=== PATIENT | male | born 1955 | race Caucasian/White ===

== ENCOUNTER 2020-04-16 10:06 | Outpatient (CLI) | payer MEDICARE, SELFPAY ==
[2020-04-16 10:58] LABS: SARS-CoV-2 Ag Negative (Negative)
== END 2020-04-16 10:07 | disposition home or self-care (01) ==
LOC: CHSLAB 10:14
PROVIDERS: PCP Internal Medicine; Visit Provider Internal Medicine
DX: Z20.828 Contact with and (suspected) exposure to other viral communicable diseases (principal)
CPT/HCPCS: 87426

== ENCOUNTER 2021-08-31 08:49 | Outpatient (CLI) | payer MEDICARE, SELFPAY ==
--- NOTE | ~2021-08-31 | CT_ITS ---
EXAMINATION: CT abdomen pelvis w con DATE: 08/31/2021 09:40 INDICATION: Right lower quadrant abdominal pain, worse with movement TECHNIQUE: Computed tomography (CT) of the abdomen and pelvis was performed with 100 CC Omnipaque 350 intravenous contrast. Automated exposure control and iterative reconstruction technique were employe d. Exam dose: 1069.27 mGy-cm total exam DLP. COMPARISON: None. FINDINGS: Right lower lobe basilar atelectasis. The lung bases are otherwise clear. Normal heart size. No pericardial or pleural effusion. Small sliding hiatal hernia. Hepatic and splenic calcified granulomas. Hepatic steatosis. No hepatic, splenic, pancreatic or adren al space-occupying mass lesion. No bile duct or pancreatic duct dilatation. The gallbladder appears unremarkable. No pericholecystic fluid or fat stranding. 2.3 cm right renal cyst. No other renal mass lesion. No urinary tract calculus or hydroureteronephros is. There is streak artifact in the pelvic area due to left hip prosthesis. The urinary bladder appears e ssentially unremarkable. Prostate enlargement. No bowel obstruction, bowel wall thickening, pneumatosis or intraperitoneal free air. No evidence of appendicitis. There is atherosclerotic calcification of the abdominal aorta and at the origins of celiac, superior mesenteric and renal and inferior mesenteric arteries as well as iliac a nd femoral artery calcifications. No abdominal aortic aneurysm. No intraperitoneal or retroperitoneal or pelvic mass lesion or adenopathy or ascites. Right hip osteoid arthritis. Severe degenerative disc disease throughout the lumbar and lumbosacral a aydee. Degenerative change lower thoracic spine. No suspicious osteolytic or osteoblastic lesions are n oted. IMPRESSION: No evidence of appendicitis Small sliding hiatal hernia 2.3 cm right renal cyst Left hip prosthesis Reviewed, dictated and finalized at [facility] Reviewed, dictated and finalized at [facility].
[2021-08-31 09:16] LABS: Estimated Glomerular Filt Rate > 60
== END 2021-08-31 08:50 | disposition home or self-care (01) ==
LOC: CHSIMG 08:52
PROVIDERS: PCP Internal Medicine; Visit Provider Internal Medicine
DX: R10.31 Right lower quadrant pain (principal)
CPT/HCPCS: 74177; Q9967

== ENCOUNTER 2022-08-15 14:39 | Outpatient (NON) | payer MEDICARE, SELFPAY ==
[2022-08-15 14:50] LABS: Appearance Urine Clear (Clear); Basophils Absolute Auto 0.09 K/mm3 (0.00-0.10); Basophils Percent Auto 0.7 % (0.0-1.0); Bilirubin Urine Negative (Negative); Blood Urine Negative (Negative); Color Urine Yellow (Yellow); Eosinophils Absolute Auto 0.42 K/mm3 (0.02-0.50); Eosinophils Percent Auto 3.4 % (1.0-6.0); Glucose Urine UA 3+ (Negative); Hematocrit 42.7 % (37.0-46.0); Hemoglobin 14.1 g/dL (12.4-15.3); Immature Granulocyte Absolute 0.34 K/mm3 (0.00-0.00); Immature Granulocyte Percent A 2.8 % (0.0-0.0); Ketones Urine Negative (Negative); Leukocyte Esterase Ur Negative LEU/UL (Negative); Lymphocytes Absolute Auto 2.24 K/mm3 (1.10-4.50); Lymphocytes Percent Auto 18.4 % (18.0-42.0); Mean Corpuscular Hemoglobin 29.9 pg (27.0-31.0); Mean Corpuscular Volume 90.7 fL (78.0-102.0); Mean Platelet Volume 8.5 fl (8.7-11.0); Monocytes Absolute Auto 1.17 K/mm3 (0.10-0.90); Monocytes Percent Auto 9.6 % (2.0-11.0); Neutrophils Absolute Auto 7.9 K/mm3 (1.7-7.2); Neutrophils Percent Auto 65.1 % (50.0-70.0); Nitrate Urine Negative (Negative); Platelet Count Result 275 K/mm3 (150-420); Protein Urine Negative (Negative); Red Blood Count 4.71 M/mm3 (4.70-6.10); Specific Grav Ur 1.015 (1.010-1.020); Urobilinogen Urine 0.2 mg/dL (0.2-1.0); White Blood Count 12.2 K/mm3 (4.8-10.8)
[2022-08-15 14:57] LABS: Add Urine Microscopic? YES; Bacteria Urine Trace /hpf; RBC Urine None seen /hpf (0-2); Squamous Epithelial Cell Urine Rare /hpf (Few); WBC Urine None seen /hpf (0-3)
[2022-08-15 14:59] LABS: Alanine Aminotransferase 59 U/L (16-63); Albumin Level 3.2 g/dL (3.4-5.0); Alkaline Phosphatase 82 U/L (46-116); Anion Gap 11 mmol/L (8-16); Aspartate Amino Transferase 36 U/L (15-37); Bilirubin,Total 0.6 mg/dL (0.00-1.00); Blood Urea Nitrogen 24 mg/dL (7-18); Calcium 8.5 mg/dL (8.5-10.1); Carbon Dioxide 28 mmol/L (21-32); Chloride 99 mmol/L (98-108); Estimated Glomerular Filt Rate > 60; Glucose 104 mg/dL (70-99); Osmolality Calculated 290 mOsm/kg (285-295); Potassium 4.3 mmol/L (3.5-5.1); Sodium 138 mmol/L (136-145); Total Protein 6.8 g/dL (6.4-8.2)
[2022-08-15 16:50] LABS: Prostate Specific Antigen 6.4 ng/mL (< OR = 4.0)
== END 2022-08-15 14:40 | disposition home or self-care (01) ==
LOC: CHSLAB 14:42
PROVIDERS: Visit Provider Internal Medicine
DX: R39.15 Urgency of urination (principal)
CPT/HCPCS: 36415; 80053; 81001; 84153; 85025; 87086

== ENCOUNTER 2022-09-01 12:27 | Outpatient (NON) | payer MEDICARE, SELFPAY ==
[2022-09-01 12:40] LABS: Appearance Urine Clear (Clear); Bilirubin Urine Negative (Negative); Blood Urine Trace-Intact (Negative); Color Urine Light Yellow (Yellow); Glucose Urine UA 3+ (Negative); Ketones Urine Negative (Negative); Leukocyte Esterase Ur Negative (Negative); Nitrate Urine Negative (Negative); Protein Urine Negative (Negative); Urobilinogen Urine 0.2 mg/dL (0.2-1.0)
[2022-09-01 12:47] LABS: Add Urine Microscopic? YES; Bacteria Urine None seen /hpf; RBC Urine 0-2 /hpf (0-2); Squamous Epithelial Cell Urine Rare /hpf (Few); WBC Urine 0-3 /hpf (0-3)
[2022-09-01 13:06] LABS: Prostate Specific Antigen 4.8 ng/mL (< OR = 4.0)
== END 2022-09-01 12:28 | disposition home or self-care (01) ==
LOC: CHSLAB 12:30
PROVIDERS: Visit Provider Internal Medicine
DX: R30.0 Dysuria (principal); R97.20 Elevated prostate specific antigen [PSA]; R82.90 Unspecified abnormal findings in urine
CPT/HCPCS: 36415; 81001; 84153; 87086

== ENCOUNTER 2022-10-26 09:50 | Outpatient (CLI) | payer MEDICARE, SELFPAY ==
--- NOTE | ~2022-10-26 | MR_ITS ---
MRI of the lumbar spine Clinical History: Spinal stenosis Technique: Axial T2-weighted images, and sagittal T1-weighted, T2-weighted, and T2 fat-sat images wer e acquired. Findings: No fracture or subluxation evident in the lumbar spine. There is 20 degree dextroscoliosis of the lumbar spine. There is advanced degenerative disc narrowing at L2-L3, L4-L5, L5-S1, with moder ate degenerative change at L3-L4 and L1-L2. No suspicious bone marrow signal reality seen. At L1-L2, there is minimal disc bulge with moderate facet arthropathy. No central canal stenosis. The re is probable mild left neural foraminal narrowing. Right neural foramen preserved. At L2-L3, there is disc bulge and moderate to severe facet arthropathy. There is left lateral recess stenosis and severe left neural foraminal narrowing. Right neural foramen preserved. At L3-L4, there is disc bulge with advanced facet arthropathy. There is severe left neural foraminal narrowing and moderate to severe right neural foraminal narrowing. At L4-L5, there is disc bulge/protrusion, especially the right paracentral to right foraminal region, with severe facet arthropathy. There is severe right lateral recess stenosis. There is severe right neural foraminal narrowing, and moderate to severe left neural foraminal narrowing. At L5-S1, there is mild disc bulge with moderate to advanced facet arthropathy. No central canal sten osis. There is moderate to severe right neural foraminal narrowing. Left neural foramen preserved. Paravertebral soft tissues are unremarkable. Impression: Advanced degenerative spondylosis, as detailed above, probably worst at L4-L5. Reviewed, dictated and finalized at [facility]. Impression: Advanced degenerative spondylosis, as detailed above, probably worst at L4-L5.
== END 2022-10-26 09:51 | disposition home or self-care (01) ==
PROVIDERS: PCP Internal Medicine
DX: M48.061 Spinal stenosis, lumbar region without neurogenic claudication (principal); M51.26 Other intervertebral disc displacement, lumbar region; M54.16 Radiculopathy, lumbar region; M43.06 Spondylolysis, lumbar region
CPT/HCPCS: 72148

== ENCOUNTER 2024-12-11 12:17 | Outpatient (CLI) | payer MEDICARE, SELFPAY ==
--- OUTSIDE RECORDS SUMMARY | 2024-12-11 12:22 | XMS_ITS | Clinical Summary ---
Author Organization [facility] Address [address] [place] [address] Care Team Providers Care Machine Pack Assembler Name Role Phone Flavio Little MD Primary Care Provider [phone] Arma Abdul MD Unavailable Lianne Oliveira MD Unavailable [phone] Dimas Valle MD Unavailable [phone] Tucker Cowan MD Unavailable [phone] Source Comments [facility],non-owned Affiliates and Associated Physician Practices is amultiple site organization consisting of ambulatory clinics and hospital sitesin [place], [place], [place] and [place]. This disclosure is being madepursuant to the Care Everywhere program and may not contain all information available regarding this patient. Last updated 18.[facility] Allergies No known active allergies Medications * Be aware that medications may not be up to date on this document. Alwaysverify current medications with the patient. celecoxib (CELEBREX) 100 MG capsule Take 1 (one) capsule by mouth 2 times daily 0 07/03/19 18 Active escitalopram (LEXAPRO) 20 MG tablet Take 0.5 (one-half) tablet by mouth once daily Active losartan-hydroCHLO ROthiazide (HYZAAR) 100-25 MG tablet Take 1 (one) tablet by mouth once daily Active metFORMIN ER 24hr (GLUCOPHAGE XR) 500 MG tablet Take 2 (two) tablets by mouth 2 times daily Active cetirizine (ZyrTEC) 10 MG tablet Take by mouth once daily Active montelukast (Singulair) 10 MG tablet Take 1 (one) tablet by mouth once daily Active Farxiga 10 MG tablet Take 0.5 (one-half) tablet by mouth once daily 05/19/19 Active dulaglutide (Trulicity) 4.5 MG/0.5ML injection Inject subcutaneously every 7 days Sundays06/28/19 Active Levemir FlexTouch pen Inject 65 (sixty five) Units subcutaneously at bedtime 05/19/19 Active NovoLOG FLEXPEN pen Inject subcutaneously 3 times daily with meals SLIDING SCALE 10 units per meal per 150 pts plus 1 unit for each 25 points 06/10/19 Active rosuvastatin (Crestor) 5 MG tablet Take 1 (one) tablet by mouth every Sunday, Sunday & Sunday05/17/19 Active rOPINIRole (Requip) 1 MG tablet Take 1 (one) tablet by mouth at bedtime 05/19/19 Active Cholecalciferol (Vitamin D) 125 MCG (5000 UT) CAPS Take by mouth once daily Active Probiotic Product (PROBIOTIC ADVANCED PO) Active melatonin 10 MG capsule Take 1 (one) capsule by mouth at bedtime Active Multiple Vitamin (MULTIVITAMIN ADULT PO) Active ascorbic acid (Vitamin C) 125 MG TABS half tablet Take by mouth as needed Active traMADol (Ultram) 50 MG tabletIndications: Primary osteoarthritis of right hip Take 1 (one) tablet to 2 (two) tablets by mouth every 6 hours as needed for Pain 20 tablet 08/31/19 Active Additional Information Patient not taking.Reported on 09/19/2022 gabapentin (Neurontin) 300 MG capsule Take 1 (one) capsule by mouth 3 times daily 90 capsule 2 10/24/19 Active Additional Information Patient taking differently:300 mg OralAT BEDTIME, Reported on 01/16/2023 acetaminophen-code ine (Tylenol #3) 300-30 MG tablet Act stephanie omeprazole (PriLOSEC) 20 MG capsule 11/10/19 Active HYDROcodone-acetam inophen ([place]) 10-325 MG tablet TAKE 1/2 TO 1 TABLET BY MOUTH EVERY 6 HOURS NEEDED FOR PAIN Active Ozempic, 2 MG/DOSE, 8 MG/3ML pen 03/25/20 23 Active tirzepatide (Mounjaro) 7.5 MG/0.5ML injection Inject 0.5ml under the skin every 7 days 06/07/19 24 Active Active Problems Problem Noted Date Diagnosed Date Status post right hip replacement 08/30/2022 Primary osteoarthritis of right hip 08/09/2022 Trochanteric bursitis of right hip 07/17/2017 Primary osteoarthritis of left knee 07/17/2017 Diabetes mellitus 07/17/2017 Obstructive sleep apnea syndrome 05/07/2002 Overview (07/17/2017): Overview: OBSTRUCTIVE SLEEP APNEA Encounters Date Type Department Care Team Description 11/03/2024 Telephone [facility] Pain [facility] [id number] [place] [address] [place] [address] Julieth Bautista Scheduling 10/23/2024 10:45 AM CDT Office Visit [facility] [id number] [facility] [address] [place] [address] Tucker Cowan MD Myofascial pain (Primary Dx); Lumbar facet arthropathy; Gait difficulty; Lumbar facet joint pain from Last 3 Months Social History Tobacco Use Types Packs/Day Years Used Date Smoking Tobacco: Never Smokeless Tobacco: Never Tobacco Cessation:Counseling Given: Not Answered Alcohol Use Standard Drinks/Week Comments Yes 0 (1 standard drink = 0.6 oz pur e alcohol) rarely PHQ-2 Answer Date Recorded Patient Health Questionnaire-2 Score 3 10/22/2024 Sex and Gender Information Value Date Recorded Sex Assigned at Male 07/12/2022 5:24 PM BIOINFORMATICS ASSISTANT Legal Sex Male 1:29 PM BIOINFORMATICS ASSISTANT Gender Identity Male 07/12/2022 5:24 PM BIOINFORMATICS ASSISTANT Sexual Orientation Straight 07/12/2022 5: 24 PM BIOINFORMATICS ASSISTANT Last Filed Vital Signs Vital Sign Reading Time Taken Comments Blood Pressure 151/80 10/31/2022 12:14 PM CDT Pulse 75 10/31/2022 12:14 PM CDT Temperature 36.8 C (98.2 F) 08/10/2022 7:59 AM CDT Respiratory Rate 18 10/31/2022 12:14 PM CDT Oxygen Saturation 94% 10/31/2022 12:14 PM CDT Inhaled Oxygen Concentration - - Weight 101.6 kg (224 lb) 01/30/2024 9:20 AM CDT Height 175.3 cm (5' 9) 01/30/2024 9:20 AM CDT Body Mass Index 33.08 01/30/2024 9:20 AM CDT Plan of Treatment Upcoming Encounters Date Type Department Care Team (Late st Contact Info) Description 01/22/2025 10:45 AM CDT Office Visit [facility] [id number] [facility] [address] [place] [address]. [place] [id number] [place] [address] [facility] [address] [place], [place] [id number] Health Maintenance Due Date Last Done Comments COLOGUARD (AGES 45-75) - COLON CA SCREENING 1953 CT COLONOGRAPHY - COLON CA SCREENING 1953 FIT - COLON CA SCREENING 1953 FLEX SIG - COLON CA SCREENING 1955 MEDICARE AWV 12 MONTHS 1953 HEPATITIS C SCREENING 01/17/1971 DTAP/TDAP/TD VACCINES (1 - Tdap) 01/22/1972 PNEUMOCOCCAL VACCINE 50+ (1 of 2 - PCV) 01/22/1972 ZOSTER VACCINE (1 of 2) 2003 Respiratory Syncytial Virus (RSV) Vaccine Pt: or over 60 yrs (1 - Risk 60-74 years 1-dose series) 2013 DIABETES RETINOPATHY SCREENING 06/26/2022 DIABETES-FOOT EXAM WITH MONOFILAMENT 06/26/2022 COVID-19 VACCINE ( season) 2024 07/02/2020, 06/11/2020 DIABETES - URINE PROTEIN SCREENING 05/07/2024 DIABETES-HGB A1C 11/24/2024 05/27/2024, , 01/30/2023, Additional history exists INFLUENZA VACCINE (#1) 2025 02/15/2017, 2014 DIABETES-SERUM CREATININE 05/27/20252024, 01/30/2023, 07/12/2022, Additional history exists COLON MONITORING 06/26/2028 06/26/2018 COLONOSCOPY - COLON CA SCREENING 06/26/2028 06/26/2018 Colorectal Cancer Screening 06/26/2028 DEPRESSION SCREENING Completed 07/24/2024, 01/30/20 24 HEPATITIS B VACCINE Aged Out No longe r eligible based on patient's age to complete this topic HIB VACCINE Aged Out No longer eligi ble based on patient's age to complete this topic HPV VACCINE Aged Out No longer eligi ble based on patient's age to complete this topic MENINGOCOCCAL (Group B) VACCINE SHARED DECISION-MAKING Aged Out No longer eligible based on patient's age to complete this topic MENINGOCOCCAL GROUPS A/C/Y/W VACCINE Aged Out No longer eligible based on patient's age to complete this topic Medical Devices Implanted Type Area Sergeant Of Officers Device Identifier Shelf Expiration Date Model / Serial / Lot Shell Actb 58mm Hip Lmt Hl Clr Cd Pps G7 - [id number] Implanted:Qty: 1 on 08/09/2022 by German Mendes MD at [facility] Right: Hip [employer] 05/11/2032 [id number] / [id number] / [id number] Linr Actb G7 G 40mm Vivacit-E Hip Lum - [id number] Implanted:Qty: 1 on 08/09/2022 by German Mendes MD at [facility] Right: Hip [employer] 06/09/2025 [id number] / [id number] / [id number] Screw 6.5mm 30mm Slf-Tap Actb Cody Trlg - [id number] Implanted:Qty: 1 on 08/09/2022 by German Mendes MD at [facility] Right: Hip [employer] 05/16/2031 [id number] / [id number] / [id number] Stem Fem 13mm 145mm Hip 135d Std Ofst Implanted:Qty: 1 on 08/09/2022 by German Mendes MD at [facility] Right: Hip [employer] 04/06/2032 [id number] / / [id number] Slv Centering G7 -6mm Ofst Tpr Hip Ti Ty Implanted:Qty: 1 on 08/09/2022 by German Mendes MD at [facility] Right: Hip [employer] 03/03/2032 [id number] / / [id number] Head Fem 40mm Hip Blx D Biolox Optn G7 Implanted:Qty: 1 on 08/09/2022 by German Mendes MD at [facility] Right: Hip [employer] 03/11/2028 [id number] / / [id number] Explanted Type Area Sergeant Of [employer] Device Identifier Shelf Expiration Date Model / Serial / Lot Pin Fx 22.9cm 4mm Stnm Thrd Ss 1 End Explanted:Qty: 1 on 08/09/2022 at [facility] Right: Hip [employer] [id number] / / Procedures Procedure Name Priority Date/Time Associated Diagnosis Comments COMPREHENSIVE METABOLIC PANEL STAT 07/12/2022 10:33 AM BIOINFORMATICS ASSISTANT Pre-op evaluation HEMOGLOBIN A1C STAT 07/12/2022 10:33 AM BIOINFORMATICS ASSISTANT Pre-op evaluation from Last 3 Months or Most Recently Relevant to Health Maintenance Results * (ABNORMAL) HEMOGLOBIN A1C (07/12/2022 10:33 AM BIOINFORMATICS ASSISTANT) Hemoglobin A1c 7.2(H) <5.7 % 07/12/2022 10:54 AM BIOINFORMATICS ASSISTANT [facility] Estimated Average Glucose 160 mg/dL 07/12/2022 10:54 AM BIOINFORMATICS ASSISTANT [facility] Blood BLOOD SPECIMEN / Unknown Venipuncture / Unknown 07/12/2022 10:33 AM BIOINFORMATICS ASSISTANT 07/12/2022 10:41 AM BIOINFORMATICS ASSISTANT Narrative [facility] - 07/12/2022 10:54 AM BIOINFORMATICS ASSISTANT HbA1c Interpretation: Normal: < 5.7% Pre-diabetes: 5.7-6.4% Diabetes: Equal to or greater than 6.5% Test results diagnostic of diabetes should be repeated for confirmation. Treatment target values recommended by ADA and other clinical organizations should be used to evaluate metabolic control in patients. This test should not replace glucose testing for patients with Type 1 diabetes, pediatric patients, or women. Falsely low HbA1c results may be observed in patients with clinical conditions that shorten erythrocyte life span or decrease mean erythrocyte age such as the presence of unstable hemoglobin variants, elevated hemoglobin F level or other causes of hemolytic anemia. HbA1c may not accurately reflect glycemic control when clinical conditions that affect erythrocyte survival are present. Severe Iron deficiency anemia may yield falsely high results. Hemoglobin A1c assay should not be used to diagnose or monitor diabetes in patients with malignancy, recent blood transfusion, chronic kidney or liver disease. This method may yield falsely low results when hemoglobin (HbF) exceeds 5% in the specimen. The [employer] assay for the measurement of HbA1c is a National Glycohemoglobin Standardization Program (NGSP) certified method. Sigrid Glover LONG [employer] [facility] - CHEMISTRY ORDE ARMANI Final Result [facility] [address] [place] [address] * (ABNORMAL) COMPREHENSIVE METABOLIC PANEL (07/12/2022 10:33 AM BIOINFORMATICS ASSISTANT) Glucose 145(H) 70 - 105 mg/dL 07/12/2022 11:00 AM [facility] Sodium 137 136 - 145 mmol/L 07/12/2022 11:00 AM [facility] Potassium 4.3 3.5 - 5.1 mmol/L 07/12/2022 11:00 AM [facility] Chloride 104 98 - 107 mmol/L 07/12/2022 11:00 AM [facility] CO2 23 23 - 31 mmol/L 07/12/2022 11:00 AM [facility] Calcium 9.2 8.4 - 10.4 mg/dL 07/12/2022 11:00 AM [facility] Anion Gap 10 8 - 18 mmol/L 07/12/2022 11:00 AM [facility] BUN 21 8.4 - 25.7 mg/dL 07/12/2022 11:00 AM [facility] Creatinine 1.06 0.72 - 1.25 mg/dL 07/12/2022 11:00 AM [facility] Alkaline Phosphatase 84 40 - 150 U/L 07/12/2022 11:00 AM [facility] ALT 28 0 - 61 U/L 07/12/2022 11:00 AM [facility] AST 24 5 - 34 U/L 07/12/2022 11:00 AM BIOINFORMATICS ASSISTANT [facility] Protein Total 7.3 6.4 - 8.3 gm/dL 07/12/2022 11:00 AM BIOINFORMATICS ASSISTANT [facility] Albumin 4.2 3.2 - 4.6 gm/dL 07/12/2022 11:00 AM BIOINFORMATICS ASSISTANT [facility] Bilirubin Total 0.3 0.2 - 1.2 mg/dL 07/12/2022 11:00 AM BIOINFORMATICS ASSISTANT [facility] eGFR by CKD-EPI 76(L) >=90 mL/min/1.7 3 m2 07/12/2022 11:00 AM BIOINFORMATICS ASSISTANT [facility] Blood BLOOD SPECIMEN / Unknown Venipuncture / Unknown 07/12/2022 10:33 AM BIOINFORMATICS ASSISTANT 07/12/2022 10:41 AM BIOINFORMATICS ASSISTANT Sigrid Glover LONG [employer] TEAM[employer] - CHEMISTRY ORDE ARMANI Final Result [facility] [address] [place] [address] from Last 3 Months or Most Recently Relevant to Health Maintenance Insurance MEDICARE AET[employer] Advance Directives * Full Code (Latest Code Status on File) Date Activated Date Inactivated Comments 08/09/2022 12:02 PM 08/10/2022 2:01 PM Care Teams Machine Pack Assembler Relationship Specialty Start Date End Date Flavio Little MD [address] [place] [address] PCP - General Internal Medicine 07/17/17 [place] [address] [place] [address] Orthopedic Surgery 07/17/17 Lianne Oliveira MD [address] [address] Endocrinology 07/12/22 Dimas Valle MD [address] [place] [address] Pulmonary Disease 07/12/22 [place] [address] [place] [address] Physical Medicine and Rehabilitation 10/23/22
--- OUTSIDE RECORDS SUMMARY | 2024-12-11 12:22 | XMS_ITS | Clinical Summary ---
Author Organization [facility] Address [address] [place] [address] Care Team Providers Care Group Controller Name Role Phone Flavio Little MD Primary Care Provider [phone] Lianne Oliveira MD Unavailable [phone] Ryann May NP Unavailable Maite Diamond MD Unavailable Lobito Burton MD PhD Unavailable Dimas Valle MD Unavailable [phone] Tucker Bai MD Unavailable Juliana Moreno Unavailable [phone] Allergies Active Allergy Reactions Criticality Noted Date Comments Gabapentin Fatigue,Other (See comments) Low 024 And lethargy Medications celecoxib (CeleBREX) 100 mg capsule 2 times daily. Activ e melatonin 10 mg capsule 1 daily at hs Active montelukast (SINGULAIR) 10 mg tablet daily 01/13/20 18 Active omeprazole (PriLOSEC) 20 mg capsule daily. Active acetaminophen (TYLENOL) 500 mg tablet 4 times daily. Activ e UNABLE TO FIND pt receives 5 different vials allergy injections several times per per month Active UNABLE TO FIND pt uses various eye/ ear/ nose drops or sprays for allergies Active Lactobacillus acidophilus (PROBIOTIC ORAL) Take by mouth daily. Active valACYclovir (VALTREX) 1 gram tablet as needed 05/16/19 Active cetirizine 10 mg capsule Take by mouth daily Active escitalopram (LEXAPRO) 20 mg tablet Take 1 tablet (20 mg total) by mouth daily 1/2-1 pill daily 03/04/20 Active amoxicillin (AMOXIL) 500 mg tablet/capsule As needed for dental procedures Active aspirin 81 mg enteric coated tablet Take 1 tablet (81 mg total) by mouth daily 90 tablet 3 05/16/19 Active lancing device (lancing device with lancets) miscIndications:T ype 2 diabetes mellitus with hyperglycemia, with long-term current use of insulin ([facility]) Use to check blood sugar 4 times daily 1 each 1 05/24/19 Active alcohol swabs (Alcohol Wipes) pads, medicatedIndicati ons:Type 2 diabetes mellitus with hyperglycemia, with long-term current use of insulin ([facility]) Use alcohol wipes 4 times per day. 400 each 3 05/31/19 Active lancets miscIndications:T ype 2 diabetes mellitus with hyperglycemia, with long-term current use of insulin ([facility]) Use to check blood sugar 3 times daily 300 each 3 06/30/19 Active True Metrix Glucose Test Strip stripIndications: Type 2 diabetes mellitus with hyperglycemia, with long-term current use of insulin ([facility]),Uncontrolle d type 2 diabetes mellitus with hyperglycemia ([facility]) USE FOR TESTING THREE TIMES DAILY DIRECTED 200 strip 1 08/20/19 24 Active glucagon 1 mg/0.2 mL auto-injectorIndi cations:hypoglyce guille disorder Inject 1 mg under the skin as needed (severe hypoglycemia, may repeat in 15 mins if needed with new device.) 0.2 mL 3 10/24/19 24 Active rosuvastatin (CRESTOR) 5 mg tabletIndications :Hypertension, unspecified type Take 1 tablet (5 mg total) by mouth 3 (three) times a week TAKE 1 TABLET 3 TIMES PER WEEK 39 tablet 3 05/14/19 25 Active losartan-hydrochl orothiazide (HYZAAR) 100-25 mg per tablet Take 1 tablet by mouth daily 90 tablet 3 05/14/19 25 Active dapagliflozin propanediol (Farxiga) 10 mg tabletIndications :Type 2 diabetes mellitus with hyperglycemia, with long-term current use of insulin ([facility]),Uncontrolle d type 2 diabetes mellitus with hyperglycemia (HCC) Take 1 tablet (10 mg total) by mouth daily 90 tablet 3 05/14/19 25 Active tirzepatide (Mounjaro) 10 mg/0.5 mL pen injector injectionIndicati ons:Type 2 diabetes mellitus with hyperglycemia, with long-term current use of insulin ([facility]) INJECT 0.5ML UNDER THE SKIN EVERY 7 DAYS. 6 mL 3 07/01/19 25 Active metFORMIN XR (GLUCOPHAGE XR) 500 mg 24 hr tabletIndications :Type 2 diabetes mellitus with hyperglycemia, with long-term current use of insulin ([facility]),Uncontrolle d type 2 diabetes mellitus with hyperglycemia ([facility]) TAKE 2 TABLETS (1000MG TOTAL) TWO TIMES A DAY 360 tablet 3 07/01/19 25 Active pen needle, diabetic 32 gauge x 5/32 needleIndications :Type 2 diabetes mellitus with hyperglycemia, with long-term current use of insulin ([facility]) Use for 4 shots daily 400 each 3 07/01/19 25 Active rOPINIRole (REQUIP) 1 mg tabletIndications :PLMD (periodic limb movement disorder) Take 1 tablet (1 mg total) by mouth nightly 90 tablet 3 07/02/19 25 Active insulin aspart (NovoLOG) 100 unit/mL (3 mL) pen for injectionIndicati ons:Type 2 diabetes mellitus with hyperglycemia, with long-term current use of insulin ([facility]),Uncontrolle d type 2 diabetes mellitus with hyperglycemia (HCC) Inject 8 units under the skin with meals, 2 units with high starches or snacks, plus 1 unit for every 25 points >150. Max TDD 45 units daily 08/13/19 25 Active insulin glargine 100 unit/mL (3 mL) pen for injectionIndicati ons:Type 2 diabetes mellitus with hyperglycemia, with long-term current use of insulin ([facility]) Inject 60 units under the skin nightly 08/13/19 25 Active multivitamin tablet With 400 international units vitamin D Daily Active Active Problems Problem Noted Date Diagnosed Date Diabetic peripheral neuropathy 01/11/2022 Assessment & Plan (08/16/2024 7:20 PM CDT): Clinically much improved. Unable to tolerate gabapentin and no longer needs alpha lipoic acid. Assessment & Plan (05/27/2024 3:55 PM [employer]): - Currently receives steroid injections in his lower back - Previously tried gabapentin, made him to somnolent. He recalls taking 300 mg 3 times a day. - Due to his restless leg and neuropathic pain at night, he is agreeable to retry low-dose gabapentin 100 mg as needed at night for neuropathic pain. Advised he can titrate this up to 200 or even 300 mg as necessary. Assessment & Plan (02/02/2024 2:59 PM CDT): Clinically much improved. Unable to tolerate gabapentin and no longer needs alpha lipoic acid. Assessment & Plan (10/24/2023 2:15 PM CDT): - Stable on current pain management regimen - Maintain glycemic control Assessment & Plan (07/28/2023 2:19 PM CDT): Clinically much improved. Unable to tolerate gabapentin and no longer needs alpha lipoic acid. Assessment & Plan (01/11/2022 4:14 PM CDT): Very symptomatic. Needs better glycemic control and may benefit from long-term antioxidant supplementation Has immunity to COVID-19 virus 05/25/2021 Overview (05/25/2021): Pfizer vaccine x3; booster dose mid-February 2021 Assessment & Plan (01/11/2022 4:12 PM CDT): Fully vaccinated, eligible for booster. Assessment & Plan (08/24/2021 8:27 AM CDT): Fully vaccinated but now qualifies for second booster Assessment & Plan (05/25/2021 2:52 PM [employer]ER): Pfizer vaccine x3; booster dose mid-February 2021. He will send me precise dates so we can record accurately. Ulnar nerve compression, left 08/03/2020 Carpal tunnel syndrome, bilateral upper limbs Hair loss 07/12/2020 Overview (07/12/2020): ? Related to chemotherapy PLMD (periodic limb movement disorder) Assessment & Plan (07/02/2024 2:16 PM [employer]ER): The patient continues Requip 1 mg nightly Assessment & Plan (06/27/2023 1:37 PM [employer]ICAL [employer]OLLER): Patient continue with Requip 1 mg p.o. Q bedtime. The patient states that this is controlling his limbs well. I have sent in prescription in for 90 day supply with three refills to [facility]. Assessment & Plan (06/28/2022 2:22 PM [employer]LLER): Patient continue with Requip 1 mg p.o. Q bedtime. Assessment & Plan (06/29/2021 1:44 PM [employer]OLLER): I will increase the patient's Requip to 1 mg. The patient was advised that he can take two of the 0.5 tablets until they completed. Assessment & Plan (05/19/2020 10:49 AM [employer]ER): The patient continues to benefit from Requip 0.5 mg at bedtime. He was requesting a refill. Erythrocytosis 07/12/2018 Leukocytosis 07/12/2018 History of colon polyps 06/10/2018 Overview (06/10/2018): Added automatically from request for surgery [id number] Family history of colon cancer 06/10/2018 Overview (06/10/2018): Added automatically from request for surgery [id number] Allergic rhinitis 01/24/2018 Primary osteoarthritis of left knee 07/17/2017 Trochanteric bursitis of right hip 07/17/2017 Hyperlipidemia 06/22/2015 Assessment & Plan (11/18/2024 3:29 PM CDT): - Last LDL 95 (01/2024), above goal - Continue Crestor 5 mg daily - Consider increasing and/or adding another medication in order to further reduce LDL to goal < 70 mg/dL Assessment & Plan (08/16/2024 7:20 PM CDT): Continue statin, optimize glycemic control Assessment & Plan (05/27/2024 3:57 PM [employer]): - Last LDL 95 (01/2024), above goal - Continue Crestor 5 mg daily - Consider increasing and/or adding another medication in order to further reduce LDL to goal < 70 mg/dL Assessment & Plan (02/02/2024 2:59 PM CDT): Continue statin, optimize glycemic control Assessment & Plan (10/24/2023 2:15 PM CDT): - Last LDL 108 (03/2019), above goal - Continue Crestor 5 mg daily - Encouraged to complete lipid panel at [facility] - Consider increasing and/or adding another medication in order to further reduce LDL to goal < 70 mg/dL Assessment & Plan (07/28/2023 2:19 PM CDT): Continue statin, optimize glycemic control Assessment & Plan (01/26/2023 8:01 AM CDT): -Will continue same medical management Assessment & Plan (10/11/2022 3:18 PM CDT): On rosuvastatin 5mg. Optimize glycemic control. Assessment & Plan (01/11/2022 4:12 PM CDT): Continue statin, optimize glycemic control Assessment & Plan (08/24/2021 2:23 PM CDT): Continue statin, optimize glycemic control Assessment & Plan (05/25/2021 2:51 PM [employer]LLER): Continue statin, optimize glycemic control Assessment & Plan (11/15/2020 10:18 AM CDT): Continue statin, optimize glycemic control Assessment & Plan (06/04/2020 3:30 PM [employer]ER): Continue statin, optimize glycemic control Assessment & Plan (09/10/2019 3:17 PM CDT): Continue statin, optimize glycemic control Assessment & Plan (08/14/2018 1:53 PM CDT): Continue statin, optimize glycemic control Assessment & Plan (01/25/2018 11:22 AM CDT): Optimize glycemic control, continue Zetia Type 2 diabetes mellitus with hyperglycemia 06/07 Assessment & Plan (11/18/2024 3:31 PM CDT): - Diabetes is complicated by neuropathy, mild chronic kidney disease, hyperlipidemia, hypertension, obesity and other co-morbidities. Control is at goal. Lab Results Component Value Date HGBA1C 6.2 (A) 11/18/2024 Per [place] [employer], goal A1c is less 7% without significant hypoglycemia. - Management Goal: maintain glycemic control, avoid hypoglycemia - Continue current regimen. Discussed increasing Mounjaro and decreasing mealtime insulin doses today. However, he is doing so well and would like to continue on current regimen. A1c is at goal - so there is no need for aggressive titration of Mounjaro at this time. However, this option is available to the patient if/when he is agreeable. - Continue management with Dexcom G7 CGM. - Advised bolusing 10-15 minutes before each meal. - Advised annual dilated eye exam - up to date. - Advised checking blood glucose before driving - Discussed hypoglycemia risk, and treatment such as the rule of 15s and the use of glucagon - Annual labs are up to date. - Update me on consistent glycemia excursions or if there is any hypoglycemia. - Advised and ensured that I am available via phone or MyChart if they have any concerns for hypo/hyperglycemia, medication refills, etc. Assessment & Plan (08/16/2024 7:20 PM CDT): Glucoses higher with high-starch meals and with snacks, so needs to compensate. Also need labs from his PCP. Assessment & Plan (05/27/2024 3:54 PM [employer]ER): - Diabetes is complicated by neuropathy, hypertension, hyperlipidemia and obesity. Controlled. Lab Results Component Value Date HGBA1C 6.1 05/27/2024 Per [place] [employer], goal A1c is less 7% without significant hypoglycemia. - Management Goal: Maintain glycemic control, avoid hypoglycemia - Continue current regimen - Discussed increasing Mounjaro and decreasing mealtime insulin doses today. However, he is doing so well and would like to continue on current regimen. A1c is at goal - so there is no need for aggressive titration of Mounjaro at this time. However, this option is available to the patient if/when he is agreeable. - Continue management with Dexcom G7 CGM. - Advised bolusing 10-15 minutes before each meal. - Advised annual dilated eye exam - UTD. - Advised checking blood glucose before driving - Discussed hypoglycemia risk, and treatment such as the rule of 15s and the use of glucagon - Annual labs are up to date. - Update me on consistent glycemia excursions or if there is any hypoglycemia. - Advised and ensured that I am available via phone or [email or web address] if they have any concerns for hypo/hyperglycemia, medication refills, etc. Assessment & Plan (02/02/2024 3:00 PM CDT): Glucoses overall within a good range of control and safety. Assessment & Plan (10/24/2023 2:14 PM CDT): - Diabetes is complicated by neuropathy, HTN, HLD and obesity. Controlled. Lab Results Component Value Date HGBA1C 6.2 10/24/2023 Per [place] [employer], goal A1c is less 7% without significant hypoglycemia. - Management Goal: maintain glycemic control - New Regimen: Continue Metformin XR 1,000 mg BID Continue Farxiga 10 mg daily Continue Mounjaro 10 mg weekly injection Reduce Glargine to 60 units daily at night Reduce Novolog to 8 units plus sliding scale 1:25 > 150 mg/dL TID AC - Discussed that if he has reflex hyperglycemia from these changes, to let me know. He can always increase by a few units if necessary. He is understanding and agreeable. - Continue management with Dexcom G7. Written out instructions how to hopefully re-connect the Dexcom to our clinic. - Advised bolusing 10-15 minutes before each meal. - Advised annual dilated eye exam - UTD. - Advised checking blood glucose before driving - Discussed hypoglycemia risk, and treatment such as the rule of 15s and the use of glucagon. New prescription sent. - Annual labs are due. Dr. Oliveira sent to [facility] in July. Encouraged patient to complete them NONA. - Update me on consistent glycemia excursions or if there is any hypoglycemia. - Advised and ensured that I am available via phone or MyChart if they have any concerns for hypo/hyperglycemia, medication refills, etc. Assessment & Plan (07/28/2023 2:20 PM CDT): Glucoses a little higher after meals and may increase Mounjaro depending on clinical response. Needs to avoid Farxiga when at risk of dehydration. Assessment & Plan (01/30/2023 10:12 AM CDT): -Currently taking MDI, oral agents and Trulicity -A1C on 01/30/23 was 7.6% -Will change Trulicity 4.5 mg weekly to Ozempic 2 mg weekly, and follow with his response -Sample of Ozempic provided; he will message me when he uses his last pen and will decide at that time if he would like a script sent -May also consider change to Mounjaro -He will start use of Dexcom G7. He was given sample of Skin Tac to try for better adherence to skin -Discussed diet and activity modifications. -Advised to call with any concerns/complaints regarding glucose readings -Eye exam is up to date Assessment & Plan (10/11/2022 3:27 PM CDT): Hemoglobin A1c was 7.2% in 07/2022. BG logs were reviewed today. Recommend getting Dexcom for continuous monitoring and safety. He is tolerating Metformin XR 1,000mg, Farxiga 10mg and Trulicity 4.5mg well and without side effects at this time. -07/2022: Cr 1.06 (0.72-1.25), eGFR 76 He is taking Levemir PM daily, consistently. He is taking Novolog with meals and using sliding scale. On losartan 100mg. Assessment & Plan (01/11/2022 4:13 PM CDT): Glucoses still high, and he would be much better off with mealtime insulin instead of glimepiride. This will provide him a great level of flexibility, as well as safety. Once he gets comfortable with this paper system, we can consider a Dexcom CGM and schedule a CDE Education to get this set up properly. Assessment & Plan (08/24/2021 2:23 PM CDT): Glucoses above target, but need to adjust insulin within a good margin of safety. Assessment & Plan (05/25/2021 2:50 PM [employer]ER): Suboptimal control, but tends to snack. Will increase Trulicity to maximum dose for now, with heart and liver benefits, and consider increasing insulin in the future. Assessment & Plan (11/17/2020 1:23 PM CDT): Suboptimal control, and he should improve with increasing his Trulicity to try to help with mealtime fluctuations as well as appetite, but also needs more baseline Levemir. Need to maintain a good level of safety Assessment & Plan (06/04/2020 3:29 PM [employer]ER): Glucoses a little higher than target, but need to maintain a good margin of safety. We can increase his Levemir a little at bedtime. Assessment & Plan (09/10/2019 3:18 PM CDT): Glucoses somewhat on the high side, so he needs a little more basal insulin, it is when he is v cristian active. Assessment & Plan (03/06/2019 7:37 AM CDT): Glucoses somewhat high, needs more basal insulin. We also need for him to send us his glucose reports so we can safely make any other adjustments in his regimen. Also needs follow-up labs Assessment & Plan (08/14/2018 1:54 PM CDT): Glucoses somewhat high, but need to maintain a good margin of safety. We can increase his Farxiga to full dose and adjust Levemir a little. Assessment & Plan (01/25/2018 11:21 AM CDT): Slightly suboptimal control with higher glucoses in the mornings Cataract of both eyes 06/21/2015 Nocturia 06/21/2015 Benign prostatic hyperplasia 06/21/2015 Adenocarcinoma of large intestine 06/21/2015 Overview (08/17/2017): Description: multiple paternal uncles Obesity 06/26/2013 Assessment & Plan (11/18/2024 3:32 PM CDT): - Continue Mounjaro 10 mg weekly. Consider increasing this at future visits - Encourage to increase physical activity as able. However, this is limited due to chronic back pain and osteoarthritis. Assessment & Plan (05/27/2024 3:57 PM [employer]ER): - Continue Mounjaro 10 mg weekly. Consider increasing this at future visits - Encourage to increase physical activity as able. However, this is limited due to chronic back pain and osteoarthritis. Arthritis 06/26/2013 Assessment & Plan (09/10/2019 3:18 PM CDT): Affects activity, sleep and insulin sensitivity Hypertension 06/26/2013 Assessment & Plan (11/18/2024 3:28 PM CDT): - At goal today - Continue current management Assessment & Plan (05/27/2024 3:56 PM [employer]ER): - At goal today - Continue current antihypertensive regimen Assessment & Plan (10/24/2023 2:14 PM CDT): - At goal today - Continue current antihypertensive regimen Assessment & Plan (01/30/2023 10:12 AM CDT): -BP today is 129/80 -Will continue same antihypertensive medications at this time. Assessment & Plan (08/14/2018 1:53 PM CDT): Blood pressure within target, managed by other doctors. Assessment & Plan (01/25/2018 11:22 AM CDT): Blood pressure within target Atherosclerosis of coronary artery 05/07/2002 Overview (08/10/2016): COR ATH UNSP VSL NTV/GFT Assessment & Plan (08/16/2024 7:20 PM CDT): Need optimal glycemic control, minimize risk of hypoglycemia. Assessment & Plan (02/02/2024 2:59 PM CDT): Need optimal glycemic control, minimize risk of hypoglycemia. Assessment & Plan (07/28/2023 2:18 PM CDT): Need optimal glycemic control, minimize risk of hypoglycemia. Assessment & Plan (10/06/2022 3:03 PM CDT): Needs optimal glycemic control and to minimize risk of hypoglycemia. Assessment & Plan (01/11/2022 4:12 PM CDT): Need optimal glycemic control, minimize risk of hypoglycemia. Assessment & Plan (08/24/2021 2:22 PM CDT): Need optimal glycemic control, minimize risk of hypoglycemia. Assessment & Plan (06/04/2020 3:30 PM T[employer]OLLER): Need to minimize risk of hypoglycemia Depression 05/07/2002 Overview (08/11/2016): DEPRESSIVE DISORDER NEC Obstructive sleep apnea syndrome 05/07/2002 Overview (08/11/2016): OBSTRUCTIVE SLEEP APNEA Assessment & Plan (07/02/2024 2:16 PM T[employer]ICAL [employer] CONTROLLER): The patient will continue CPAP at 16 cm water pressure. Denied need for supplies. DME adapt Assessment & Plan (06/27/2023 1:37 PM T[employer]ICAL [employer] CONTROLLER): The patient continues to wear his CPAP at 16 cm water pressure while sleeping. His DME is [facility] Assessment & Plan (06/28/2022 2:21 PM TACTICAL [employer] DEF[employer] CONTROLLER): I will increase the patient's CPAP 16 cm water pressure while sleeping due to the snoring. His DME is [facility] Assessment & Plan (06/29/2021 1:43 PM T[employer]ICAL [employer] DEF[employer] CONTROLLER): I will increase the patient's CPAP 16 cm water pressure while sleeping. His DME is [facility]. Assessment & Plan (05/19/2020 10:49 AM TACTICAL [employer] DEFENSE CONTROLLER): The patient continues to benefit from CPAP at 14 cm water pressure. His DME is [facility]. Anxiety state 05/07/2002 Overview (08/11/2016): ANXIETY STATE NOS Resolved Problems Problem Noted Date Diagnosed Date Resolved Date Need for immunization against influenza 02/15/2017 01/24/2018 Encounters Date Type Department Care Team Description 11/18/2024 3:00 PM CDT Office Visit [facility] Endocrinology Metabolism and Lipid [address] [place] [address] [place] [address] Juliana Moreno PA Type 2 diabetes mellitus with hyperglycemia, with long-term current use of insulin (HCC) (Primary Dx); Diabetic peripheral neuropathy (HCC); Mixed hyperlipidemia; Primary hypertension; Class 1 obesity due to excess calories with serious comorbidity and body mass index (BMI) of 32.0 to 32.9 in adult from Last 3 Months Immunizations Immunization Administration Dates Next Due Influenza, Trivalent, Preser vative Free, Intramuscular 02/15/2017,02/15/2017,05/07/2014 Pneumococcal Polysaccharide PPV23 05/02/2011 Td, adsorbed 05/07/2000 Surgical History Surgery Date Site/Laterality Comments OTHER SURGICAL HISTORY liver bx OTHER SURGICAL HISTORY CARDIAC CATH-NELSON OTHER SURGICAL HISTORY B/L ARTHROSCOPIC KNEE OTHER SURGICAL HISTORY CERVICAL NECK FUSION OTHER SURGICAL HISTORY home glucometer KNEE ARTHROSCOPY 05/07/2006 - 05/06/2007 Arthroscopy knee CATARACT EXTRACTION Cataract extraction CARPAL TUNNEL RELEASE 05/07/2011 - 05/06/2012 Carpal tunnel release KNEE ARTHROPLASTY 05/07/2008 - 05/06/2009 Knee replacement HIP ARTHROPLASTY 05/07/2011 - 05/06/2012 Hip replacement KNEE SURGERY Knee Surgery - 1976, 1986, 2006, 2008 (Added by TW Conv) NERVE BLOCK Peripheral Nerve Block Wrist Median Right - left 12/2011 and right 01/2012 (Added by TW Conv) TOTAL HIP ARTHROPLASTY Hip Replacement - left, with bursa removal (Added by TW Conv) HI ARTHRD ANT INTERBODY MIN DSC CRV BELOW C2 Cervical Vertebral Fusion - (Added by TW Conv) HI NEUROPLASTY &/TRANSPOS MEDIAN NRV CARPAL TUNNE Neuroplasty Decompression Median Nerve At Carpal Tunnel - L 12/16; R 01/16 (Added by TW Conv) POLYPECTOMY COLONOSCOPY 08/22/2007 patient indicates last colon 5 years ago [place]? ELBOW SURGERY 08/05/2020 - 09/03/2020 Left HIP SURGERY 08/05/2022 - 09/03/2022 Right hip replacement Medical History Medical History Date Comments Hx Other Medical 01-GI Hx Other Medical -ORTHOPEDIST Gastroesophageal reflux disease GERD Hyperlipidemia Hyperlipidemia Hx Other Medical 1984 liver biopsy Depression Depression Hypertension Hypertension Anxiety disorder Anxiety Personal history of other di seases of the nervous system and sense organs History of carpal tunn el syndrome - (Added by TW Conv) Nonspecific elevation of lev els of transaminase and lactic acid dehydrogenase (LDH) Elevated transaminase level - (Added by TW Conv) Colon polyp Cataract Family History Medical History Relation Name Comments Colon cancer Brother 1 Cancer -colon; Heart failure Brother 1 Cancer Brother 2 Cancer - (Added by TW Conv) Diabetes Father Diabetes mellit us; Hypertension Father Hypertension - (Added by TW Conv) Depression Mother Depression; Diabetes Mother Diabetes mellit us; Diabetes type II Mother Type 2 Diab etes Mellitus - (Added by TW Conv) Rheum arthritis Mother Family histo ry of rheumatoid arthritis - (Added by TW Conv) Kidney disease Other 1 Family histor y of Renal disease; Colon cancer Other 2 Family history of Cancer, colon; Diabetes Other 3 Family history of Diabetes mellitus; Hypertension Other 4 Family history of Hypertension; Other Other 5 Family history of Cancer, liver; Cancer Other 6 Family history of Cancer; Heart disease Other 7 Family history of cardiac disorder - Relation: Aunt (Added by TW Conv) Heart disease Other 8 Family history of cardiac disorder - Relation: Uncle (Added by TW Conv) Relation Name Status Comments Brother 1 Brother 2 Father Mother Other 1 Other 2 Other 3 Other 4 Other 5 Other 6 Other 7 Other 8 Social History Tobacco Use Types Packs/Day Years Used Date Smoking Tobacco: Never Smokeless Tobacco: Never Tobacco Cessation:Counseling Given: Not Answered Alcohol Use Standard Drinks/Week Comments Yes 0 (1 standard drink = 0.6 oz pur e alcohol) rarely Sex and Gender Information Value Date Recorded Sex Assigned at Not on file Legal Sex Male 11:53 PM TACTICAL AIR DEFENSE CONTROLLER Gender Identity Male 05/12/2020 11:21 AM TACTICAL AIR DEFENSE CONTROLLER Sexual Orientation Straight 05/12/2020 11 :21 AM TACTICAL AIR DEFENSE CONTROLLER Obstetrics History Last Filed Vital Signs Vital Sign Reading Time Taken Comments Blood Pressure 111/72 11/18/2024 2:51 PM CDT Pulse 83 11/18/2024 2:51 PM CDT Temperature 36.9 C (98.4 F) 11/18/2024 2:51 PM CDT Respiratory Rate 18 07/02/2024 1:45 PM TACTICAL AIR DEFENSE CONTROLLER Oxygen Saturation 97% 07/02/2024 1:45 PM TACTICAL AIR DEFENSE CONTROLLER Inhaled Oxygen Concentration - - Weight 98.9 kg (218 lb) 11/18/2024 2:51 PM CDT Height 175.3 cm (5' 9) 11/18/2024 2:51 PM CDT Body Mass Index 32.19 11/18/2024 2:51 PM CDT Plan of Treatment Health Maintenance Due Date Last Done Comments Depression Screening 1955 Fall Risk Assessment 1955 Hepatitis C Screening 1955 eGFR 1955 Foot Exam 1955 Lipid Panel 1955 Hepatitis B Screening 1971 Zoster Vaccine (1 of 2) 2003 Well Visit 65+ 2018 Albumin Creatinine Ratio, Urine 03/21/2020 9, 02/07/2018 Dilated Eye Exam 09/08/2022 09/08/2021 Covid-19 Vaccine (2023-2 5 season) 2024 09/09/2021, 03/01/2021, 06/30/2020, Additional history exists Influenza Vaccine (#1) 2025 , 02/15/2017, 02/15/2017, Additional history exists Hemoglobin A1C 05/21/2025 11/18/2024, 05/08, 10/24/2023, Additional history exists DTaP/Tdap/Td Vaccine (2 - Td or Tdap) 04/17/2027 04/17/2017, 05/07/2000 Colon Cancer Screening-Colonoscopy 06/26/2028 06/26/2018 Colon Cancer Screening-CT Colonography Discontinued 06/26/2018 Colon Cancer Screening-DNA Stool Discontinued 06/26/19 Colon Cancer Screening-FIT Discontinued 06/26/2018 Colon Cancer Screening-Sigmoidoscopy Discontinued 06/26/2018 Pneumococcal vaccine 65+ Completed 019, 04/17/2017, 05/02/2011 Procedures Procedure Name Priority Date/Time Associated Diagnosis Comments POCT HEMOGLOBIN A1C Routine 11/18/2024 2 :55 PM CDT Type 2 diabetes mellitus with hyperglycemia, with long-term current use of insulin (HCC) POCT GLUCOSE 44633 Routine 11/18/2024 2: 53 PM CDT Type 2 diabetes mellitus with hyperglycemia, with long-term current use of insulin (HCC) DIABETIC EYE EXAM Routine 09/08/2021 ALBUMIN CREATININE RATIO, URINE Routine 03/21/2019 8:45 AM TACTICAL AIR DEFENSE CONTROLLER COLONOSCOPY 06/26/2018 8:12 AM TACTICAL AIR DEFENSE CONTROLLER from Last 3 Months or Most Recently Relevant to Health Maintenance Results * (ABNORMAL) POCT hemoglobin A1c (11/18/2024 2:55 PM CDT) Hemoglobin A1C, POC 6.2(A) 4.0 - 5.6 % Blood 11/18/2024 2:55 PM CDT us Juliana LOAIZA POINT OF CARE TEST ORDERA BLES Final Result * POCT glucose (11/18/2024 2:53 PM CDT) Glucose Blood, POC 120 Normal Fasting 70 - 100, Random <200 mg/dL Blood 11/18/2024 2:53 PM CDT us Juliana LOAIZA POINT OF CARE TEST ORDERA BLES Final Result * Diabetic Eye Exam (09/08/2021) us Quinn Christian OD HEALTH MAINTENANCE Final R esult * Albumin Creatinine Ratio, Urine (03/21/2019 8:45 AM TACTICAL AIR DEFENSE CONTROLLER) Creatinine, ur 98 20 - 320 mg/dL [facility] [place] Microalbumin, ur 0.5 See Note: mg/dL [facility] [place] Comment: Reference Range: Reference Range Not established Microalbumin/creat ratio 5 <30 mcg/mg creat [facility] [place] Comment: The ADA defines abnormalities in albumin excretion as follows: Category Result (mcg/mg creatinine) Normal <30 Microalbuminuria 30-299 Clinical albuminuria > OR = 300 The ADA recommends that at least two of three specimens collected within a 3-6 month period be abnormal before considering a patient to be within a diagnostic category. 03/21/2019 8:45 AM TACTICAL AIR DEFENSE CONTROLLER 03/21/2019 8:46 AM TACTICAL AIR DEFENSE CONTROLLER Narrative Resulting Agency Comment Performing Organization Information: Site ID: [place] Name: [email or web address] Address: [address] [place] [address] Director: Aram Turpin D.O., MPH us Lianne Oliveira MD LAB URINE ORDERABLES Final Result [facility] [place], [place] * COLONOSCOPY (06/26/2018 8:12 AM TACTICAL AIR DEFENSE CONTROLLER) Anatomical Region Laterality Modality Other Narrative Procedure Note Brynn Perez MD - 06/26/2018 8:12 AM CST [facility] Patient Name: Bowen Quintanilla Procedure Date: 06/26/2018 8:12 AM Date of : 1955 Admit Type: Outpatient Age: 63 Gender: Male Attending MD: Brynn Perez M.D. Room: [facility] 1 Note Status: Finalized Patient Profile: 63 WM, brother and at least 2 uncles had coloncancer. 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 Procedure: Colonoscopy Indications: Colon cancer screening in patient at increased risk: Family history of hereditary nonpolyposis colorectal cancer, Last colonoscopy: 2013 Referring MD: Flavio Little MD Providers: Brynn Perez M.D. Impression: - The entire examined colon is normal. - Internal hemorrhoids. - No specimens collected. Recommendation: - Continue present medications. - Repeat colonoscopy in 1-2 years for screening purposes. Medicines: Monitored Anesthesia Care Complications: No immediate complications. Estimated Blood Loss: Estimated blood loss: none. Procedure: Pre-Anesthesia Assessment: - Prior to the procedure, a History and Physical was performed, and patient medications and allergieswere reviewed. The patient's tolerance of previous anesthesia was also reviewed. The risks and benefitsof the procedure and the sedation options and riskswere discussed with the patient. All questions were answered, and informed consent was obtained. Prior Anticoagulants: The patient has taken no previous anticoagulant or antiplatelet agents. ASA Grade Assessment: II - A patient with mild systemicdisease. After reviewing the risks and benefits, the patientwas deemed in satisfactory condition to undergo the procedure. The benefits, risks and alternatives of theprocedure and sedation were discussed and informed consent was obtained. All questions were answered. Please referto the signed informed consent document in the medical record. The scope was passed under direct vision.The Pediatric Colonoscope [id number]-H190L [id number] was introduced through the anus and advanced to the the cecum, identified by appendiceal orifice andileocecal valve. The colonoscopy was performed without difficulty. The patient tolerated the procedurewell. The quality of the bowel preparation was good. Findings: The perianal and digital rectal examinations were normal. Prostateexam was unremarkable. The ileum appeared normal. The colon (entire examined portion) appeared normal. No polyps and no mass lesions. Internal hemorrhoids were found during retroflexion. The hemorrhoids were medium-sized. Electronically signed by Brynn Perez M.D. Brynn Perez M.D. 06/26/2018 8:50:22 AM Number of Addenda: 0 Note Initiated On: 06/26/2018 8:12 AM Procedure Code(s): --- Professional --- G0105, Colorectal cancer screening; colonoscopy on individual at high risk Diagnosis Code(s): --- Professional --- Z80.0, Family history of malignant neoplasm of digestive organs K64.8, Other hemorrhoids CPT copyright 2017 [employer]. All rights reserved. The codes documented in this report are preliminary and upon translator/interpreter reviewmay be revised to meet current compliance requirements. Recognized by the [employer] for promoting quality in endoscopy Brynn Perez MD ENDOSCOPY PROCEDURES Final Result from Last 3 Months or Most Recently Relevant to Health Maintenance Insurance MEDICARE [employer] MEDICARE [employer] SENIOR SUPPLEMENT MEDICARE AETNA SENIOR SUPPLEMENT Advance Directives For more information, please contact: [phone] * Full Code (Latest Code Status on File) Date Activated Date Inactivated Comments 06/26/2018 7:23 AM 06/26/2018 2:17 PM * Full Code Date Activated Date Inactivated Comments 06/26/2018 7:23 AM 06/26/2018 7:23 AM Care Teams Group Controller Relationship Specialty Start Date End Date Flavio Little MD PCP - General 08/09/07 Lianne Oliveira MD Referring Physician Endocrinology Diabetes & Metabolism 09/09/19 Ryann May NP Nurse Practitioner Nurse Practitioner 06/04/20 Maite Diamond MD [address] [place] [address] Medical Oncologist/Hematologis t Hematology 07/06/20 Lobito Burton MD PhD [address] [place] [address] Referring Physician Cardiology 08/24/20 Dimas Valle MD [address] [address] Consulting Physician Pulmonary Disease 08/24/21 [place] [address] [address] Referring Physician Physical Medicine and Rehabilitation 07/24/23 Juliana Moreno PA [address] [facility] ENDOCR[facility]OLOG[facility], [address] [address] Physician Reclamation Engineer Physician Reclamation Engineer 08/11/24
--- OUTSIDE RECORDS SUMMARY | 2024-12-11 12:22 | XMS_ITS | Encounter Summary ---
Author Organization [facility] Address [address] [place] [address] Phone Care Team Providers Care Explosives Handler Name Role Phone Flavio Little MD Primary Care Provider [phone] Lianne Oliveira MD Unavailable [phone] Ryann May NP Unavailable [phone] Maite Diamond MD Unavailable [phone] Lobito Burton MD PhD Unavailable [phone] Dimas Valle MD Unavailable [phone] Tucker Bai MD Unavailable Juliana Moreno Unavailable [phone] Encounter Details Date Type Department Care Team (Latest Contact Info) Description 08/03/2017 Orders Only [facility] Scanning, Provider Social History Tobacco Use Types Packs/Day Years Used Date Smoking Tobacco: Never Alcohol Use Standard Drinks/Week Comments Yes 0 (1 standard drink = 0.6 oz pur e alcohol) Sex and Gender Information Value Date Recorded Sex Assigned at Not on file Legal Sex Male 11:53 PM GROUP WORK PROGRAM AIDE Gender Identity Male 05/12/2020 11:21 AM GROUP WORK PROGRAM AIDE Sexual Orientation Straight 05/12/2020 11 :21 AM GROUP WORK PROGRAM AIDE documented as of this encounter Plan of Treatment Not on file documented as of this encounter Procedures Procedure Name Priority Date/Time Associated Diagnosis Comments SCAN - LABS 08/03/2017 documented in this encounter Results * SCAN - LABS (08/03/2017) us Provider Scanning Final Result documented in this encounter Visit Diagnoses Not on filedocumented in this encounter Care Teams Explosives Handler Relationship Specialty Start Date End Date Flavio Little MD PCP - General 08/09/07 Lianne Oliveira MD Referring Physician Endocrinology Diabetes & Metabolism 09/09/19 Ryann May NP Nurse Practitioner Nurse Practitioner 06/04/20 Maite Diamond MD [address] [place] [address] Medical Oncologist/Hematologis t Hematology 07/06/20 Lobito Burton MD PhD [address] [place] [address] Referring Physician Cardiology 08/24/20 Dimas Valle MD [address] [address] Consulting Physician Pulmonary Disease 08/24/21 [place] [address] [address] Referring Physician Physical Medicine and Rehabilitation 07/24/23 Juliana Moreno PA 49[address] [facility], [address] [address] Physician Press Leader Physician Press Leader 08/11/24 documented as of this encounter
--- OUTSIDE RECORDS SUMMARY | 2024-12-11 12:22 | XMS_ITS | Clinical Summary ---
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 Social History Tobacco Use Types Packs/Day Years Used Date Smoking Tobacco: Never Assessed Sex and Gender Information Value Date Recorded Sex Assigned at Not on file Legal Sex Male 5:09 PM CDT Gender Identity Not on file Sexual Orientation Not on file Last Filed Vital Signs Vital Sign Reading Time Taken Comments Blood Pressure 130/66 08/03/2020 9:59 AM CDT Pulse 67 08/03/2020 9:59 AM CDT Temperature 36.8 C (98.2 F) 08/03/2020 9:59 AM CDT Respiratory Rate - - Oxygen Saturation 98% 08/03/2020 9:59 AM CDT Inhaled Oxygen Concentration - - Weight 105.2 kg (232 lb) 08/03/2020 9:59 AM CDT Height 180.3 cm (5' 11) 08/03/2020 9:59 AM CDT Body Mass Index 32.36 08/03/2020 9:59 AM CDT Plan of Treatment Health Maintenance Due Date Last Done Comments Colorectal Cancer Screening Colonoscopy (10 Years) 1955 Hepatitis C 1971 DTaP, Tdap and Td Vaccines ( 1 - Tdap) 05/08/2000 05/07/2000 Zoster Vaccines (1 of 2) 2003 Annual Medicare Wellness Visit 2018 Pneumococcal Vaccine: 50+ Years (2 of 2 - PPSV23) 04/17/2018 04/17/2017 COVID-19 Vaccine (3 - 2023-2 5 season) 2024 06/30/2020, 06/09/2020 RSV Immunization or 60+ Years (1 - 1-dose 75+ series) 01/22/2028 Meningococcal B Vaccine Aged Out No l onger eligible based on patient's age to complete this topic Meningococcal Vaccine Aged Out No ny vandana eligible based on patient's age to complete this topic RSV Immunizations Under 20 Months Aged Out No longer eligible b ased on patient's age to complete this topic Insurance MEDICARE AETNA Care Teams Bank Courier Relationship Specialty Start Date End Date Flavio Little MD [address] [place] [address] PCP - General INTERNAL MEDICINE 07/30/20
--- NOTE | 2024-12-11 12:36 | ECG_ITS ---
Test Date: 2024-12-11 12:46:41 Measurements Intervals [place] Rate: 72 P: 60 NE: 167 QRS: 62 QRSD: 81 T: 51 QT: 364 QTc: 399 Interpretive Statements SINUS RHYTHM BASELINE WANDER- I, II, III, AVL, AVF, V4 NORMAL ECG No previous ECG available for comparison Electronically Signed On 12-11-2024 12:52:57 CDT by Mohan Vo D.O.
[2024-12-11 12:44] LABS: Hematocrit 50.2 % (37.0-46.0); Hemoglobin 16.5 g/dL (12.4-15.3); Immature Granulocyte Percent A 0.9 % (0.0-0.0); Lymphocytes Absolute Auto 1.75 K/mm3 (1.10-4.50); Mean Corpuscular HGB Conc 32.9 g/dL (32-36); Mean Corpuscular Hemoglobin 28.8 pg (27.0-31.0); Mean Corpuscular Volume 87.6 fL (78.0-102.0); Nucleated Red Blood Cells Absolute Auto 0.00 K/mm3 (0.00-0.00); Nucleated Red Blood Cells Perc 0.0 % (0-0.0); Platelet Count Result 250 K/mm3 (150-420); Red Blood Count 5.73 M/mm3 (4.70-6.10); White Blood Count 16.1 K/mm3 (4.8-10.8)
[2024-12-11 13:17] LABS: Alanine Aminotransferase 37 U/L (6-50); Albumin Level 4.5 g/dL (3.5-5.1); Alkaline Phosphatase 81 U/L (38-126); Anion Gap 10 mmol/L (4-12); Aspartate Amino Transferase 45 U/L (17-59); Bilirubin,Total 1.1 mg/dL (0.2-1.3); Blood Urea Nitrogen 15 mg/dL (9-20); CRP 1.4 mg/dL (<1.0); Calcium 9.0 mg/dL (8.4-10.2); Carbon Dioxide 26 mmol/L (22-30); Chloride 101 mmol/L (98-107); Creatine Kinase 172 U/L (55-170); Estimated Glomerular Filt Rate > 60; Glucose 163 mg/dL (65-110); Osmolality Calculated 288 mOsm/kg (285-295); Potassium 4.3 mmol/L (3.4-5.0); Sodium 137 mmol/L (137-145); Total Protein 7.5 g/dL (6.3-8.2)
[2024-12-11 13:28] LABS: NT Pro B Type Natriuretic Pept 22 pg/mL (19.9-100); Troponin I < 0.012 ng/mL (0.000-0.034)
== END 2024-12-11 12:18 | disposition home or self-care (01) ==
LOC: CHSLAB 12:20
PROVIDERS: PCP Internal Medicine; Visit Provider Internal Medicine
DX: R06.00 Dyspnea, unspecified (principal); R05.9 Cough, unspecified
CPT/HCPCS: 36415; 80053; 82550; 82553; 83880; 84484; 85025; 85380; 86140; 93005

== ENCOUNTER 2024-12-15 10:53 | Outpatient (CLI) | payer MEDICARE, SELFPAY ==
--- OUTSIDE RECORDS SUMMARY | 2024-12-15 11:00 | XMS_ITS | Encounter Summary ---
Author Organization [facility] Address [address] [place] [address] Phone Care Team Providers Care Naval Gunfire Spotter Name Role Phone Flavio Little MD Primary Care Provider [phone] Lianne Oliveira MD Unavailable [phone] Ryann May NP Unavailable [phone] Maite Diamond MD Unavailable [phone] Lobito Burton MD PhD Unavailable [phone] Dimas Valle MD Unavailable [phone] Tucker Bai MD Unavailable Juliana Moreno Unavailable [phone] Encounter Details Date Type Department Care Team [...] on file Legal Sex Male 11:53 PM PUNCHBOARD ASSEMBLER Gender Identity Male 05/12/2020 11:21 AM PUNCHBOARD ASSEMBLER Sexual Orientation Straight 05/12/2020 11 :21 AM PUNCHBOARD ASSEMBLER documented as of this encounter Plan of Treatment Not on file documented as of this encounter Procedures Procedure Name Priority Date/Time Associated Diagnosis Comments SCAN - LABS 08/03/2017 documented in this encounter Results * SCAN - LABS (08/03/2017) us Provider Scanning Final Result documented in this encounter Visit Diagnoses Not on filedocumented in this encounter Care Teams Naval Gunfire Spotter Relationship Specialty Start Date End Date Flavio Little MD PCP - General 08/09/07 Lianne Oliveira MD Referring Physician Endocrinology Diabetes & Metabolism 09/09/19 Ryann May NP Nurse Practitioner Nurse Practitioner 06/04/20 Maite Diamond MD [address] [place] [address] Medical Oncologist/Hematologis t Hematology 07/06/20 Lobito Burton MD PhD [address] [place] [address] Referring Physician Cardiology 08/24/20 Dimas Valle MD [address] [address] Consulting Physician Pulmonary Disease 08/24/21 [place] [address] [address] Referring Physician Physical Medicine and Rehabilitation 07/24/23 Juliana Moreno PA [address] [facility] ENDO[facility], [address] [address] Physician Hospitality Manager Physician Hospitality Manager 08/11/24 documented as of this encounter
--- OUTSIDE RECORDS SUMMARY | 2024-12-15 11:00 | XMS_ITS | Clinical Summary ---
Author Organization [facility] Address [address] [place] [address] Care Team Providers Care Biochemical Engineer Name Role Phone Flavio Little MD Primary Care Provider [phone] Lianne Oliveira MD Unavailable Ryann May NP Unavailable [phone] Maite Diamond MD Unavailable Lobito Burton MD PhD Unavailable [phone] Dimas Valle MD Unavailable [phone] Tucker Bai MD Unavailable Juliana Moreno [...] hyperglycemia, with long-term current use of insulin ([facility]) Use to check blood sugar 4 times daily 1 each 1 05/24/19 Active alcohol swabs (Alcohol Wipes) pads, medicatedIndicati ons:Type 2 diabetes mellitus with hyperglycemia, with long-term current use of insulin ([facility]) Use alcohol wipes 4 times per day. 400 each 3 05/31/19 Active lancets miscIndications:T ype 2 diabetes mellitus with hyperglycemia, with long-term current use of insulin ([facility]) Use to check blood sugar 3 times daily 300 each 3 06/30/19 Active True Metrix Glucose Test Strip stripIndications: Type 2 diabetes mellitus with hyperglycemia, with long-term current use of insulin ([facility]),Uncontrolle d type 2 diabetes mellitus with hyperglycemia ([facility]) USE FOR TESTING THREE TIMES DAILY DIRECTED [...] hyperglycemia, with long-term current use of insulin ([facility]),Uncontrolle d type 2 diabetes mellitus with hyperglycemia (HCC) Take 1 tablet (10 mg total) by mouth daily 90 tablet 3 05/14/19 25 Active tirzepatide (Mounjaro) 10 mg/0.5 mL pen injector injectionIndicati ons:Type 2 diabetes mellitus with hyperglycemia, with long-term current use of insulin ([facility]) INJECT 0.5ML UNDER THE SKIN EVERY 7 DAYS. 6 mL 3 07/01/19 25 Active metFORMIN XR (GLUCOPHAGE XR) 500 mg 24 hr tabletIndications :Type 2 diabetes mellitus with hyperglycemia, with long-term current use of insulin ([facility]),Uncontrolle d type 2 diabetes mellitus with hyperglycemia ([facility]) TAKE 2 TABLETS (1000MG TOTAL) TWO TIMES A DAY 360 tablet 3 07/01/19 25 Active pen needle, diabetic 32 gauge x 5/32 needleIndications :Type 2 diabetes mellitus with hyperglycemia, with long-term current use of insulin ([facility]) Use for 4 shots daily 400 each 3 07/01/19 25 Active rOPINIRole (REQUIP) 1 mg tabletIndications :PLMD (periodic limb movement disorder) Take 1 tablet (1 mg total) by mouth nightly 90 tablet 3 07/02/19 25 Active insulin aspart (NovoLOG) 100 unit/mL (3 mL) pen for injectionIndicati ons:Type 2 diabetes mellitus with hyperglycemia, with long-term current use of insulin ([facility]),Uncontrolle d type 2 diabetes mellitus with hyperglycemia (HCC) Inject 8 units under the skin with meals, 2 units with high starches or snacks, plus 1 unit for every 25 points >150. Max TDD 45 units daily 08/13/19 25 Active insulin glargine 100 unit/mL (3 mL) pen for injectionIndicati ons:Type 2 diabetes mellitus with hyperglycemia, with long-term current use of insulin ([facility]) Inject 60 units under the skin nightly 08/13/19 25 Active multivitamin tablet With 400 international units vitamin D Daily Active Active Problems Problem Noted Date Diagnosed Date Diabetic peripheral neuropathy 01/11/2022 Assessment & Plan (08/16/2024 7:20 PM CDT): Clinically much improved. Unable to tolerate gabapentin and no longer needs alpha lipoic acid. Assessment & Plan (05/27/2024 3:55 PM BREAD PACKER): - Currently receives steroid injections in his [...] booster Assessment & Plan (05/25/2021 2:52 PM BREAD PACKER): Pfizer vaccine x3; booster dose mid-February 2021. He will send me precise dates so we can record accurately. Ulnar nerve compression, left 08/03/2020 Carpal tunnel syndrome, bilateral upper limbs Hair loss 07/12/2020 Overview (07/12/2020): ? Related to chemotherapy PLMD (periodic limb movement disorder) Assessment & Plan (07/02/2024 2:16 PM BREAD PACKER): The patient continues Requip 1 mg nightly Assessment & Plan (06/27/2023 1:37 PM BREAD PACKER): Patient continue with Requip 1 mg p.o. Q bedtime. The patient states that this is controlling his limbs well. I have sent in prescription in for 90 day supply with three refills to [facility]. Assessment & Plan (06/28/2022 2:22 PM BREAD PACKER): Patient continue with Requip 1 mg p.o. Q bedtime. Assessment & Plan (06/29/2021 1:44 PM BREAD PACKER): I will increase the patient's Requip to 1 mg. The patient was advised that he can take two of the 0.5 tablets until they completed. Assessment & Plan (05/19/2020 10:49 AM BREAD PACKER): The patient continues to benefit from Requip 0.5 mg at bedtime. He was requesting a refill. Erythrocytosis 07/12/2018 Leukocytosis 07/12/2018 History of colon polyps 06/10/2018 Overview (06/10/2018): Added automatically from request for surgery [id number] Family history of colon cancer 06/10/2018 Overview (06/10/2018): Added automatically from request for surgery [id number] Allergic rhinitis 01/24/2018 Primary osteoarthritis of left [...] control Assessment & Plan (05/27/2024 3:57 PM BREAD PACKER): - Last LDL 95 (01/2024), above goal [...] control Assessment & Plan (05/25/2021 2:51 PM BREAD PACKER): Continue statin, optimize glycemic control Assessment & Plan (11/15/2020 10:18 AM CDT): Continue statin, optimize glycemic control Assessment & Plan (06/04/2020 3:30 PM BREAD PACKER): Continue statin, optimize glycemic control Assessment & [...] Value Date HGBA1C 6.2 (A) 11/18/2024 Per [place] [employer], goal A1c is less 7% [...] PCP. Assessment & Plan (05/27/2024 3:54 PM BREAD PACKER): - Diabetes is complicated by neuropathy, hypertension, hyperlipidemia and obesity. Controlled. Lab Results Component Value Date HGBA1C 6.1 05/27/2024 Per [place], goal A1c is less 7% [...] that I am available via phone or orderbolthart if they have any concerns for hypo/hyperglycemia, medication refills, etc. Assessment & Plan (02/02/2024 3:00 PM CDT): Glucoses overall within a good range of control and safety. Assessment & Plan (10/24/2023 2:14 PM CDT): - Diabetes is complicated by neuropathy, HTN, HLD and obesity. Controlled. Lab Results Component Value Date HGBA1C 6.2 10/24/2023 Per [place], goal A1c is less 7% [...] labs are due. Dr. Oliveira sent to [facility] in July. Encouraged patient to complete them [...] safety. Assessment & Plan (05/25/2021 2:50 PM BREAD PACKER): Suboptimal control, but tends to snack. Will [...] safety Assessment & Plan (06/04/2020 3:29 PM BREAD PACKER): Glucoses a little higher than target, but [...] osteoarthritis. Assessment & Plan (05/27/2024 3:57 PM BREAD PACKER): - Continue Mounjaro 10 mg weekly. Consider [...] management Assessment & Plan (05/27/2024 3:56 PM BREAD PACKER): - At goal today - Continue current [...] hypoglycemia. Assessment & Plan (06/04/2020 3:30 PM BREAD PACKER): Need to minimize risk of hypoglycemia Depression 05/07/2002 Overview (08/11/2016): DEPRESSIVE DISORDER NEC Obstructive sleep apnea syndrome 05/07/2002 Overview (08/11/2016): OBSTRUCTIVE SLEEP APNEA Assessment & Plan (07/02/2024 2:16 PM BREAD PACKER): The patient will continue CPAP at 16 cm water pressure. Denied need for supplies. DME adapt Assessment & Plan (06/27/2023 1:37 PM BREAD PACKER): The patient continues to wear his CPAP at 16 cm water pressure while sleeping. His DME is [facility] Assessment & Plan (06/28/2022 2:21 PM BREAD PACKER): I will increase the patient's CPAP 16 cm water pressure while sleeping due to the snoring. His DME is [facility] Assessment & Plan (06/29/2021 1:43 PM BREAD PACKER): I will increase the patient's CPAP 16 cm water pressure while sleeping. His DME is [facility]. Assessment & Plan (05/19/2020 10:49 AM BREAD PACKER): The patient continues to benefit from CPAP at 14 cm water pressure. His DME is [facility]. Anxiety state 05/07/2002 Overview (08/11/2016): ANXIETY STATE NOS Resolved Problems Problem Noted Date Diagnosed Date Resolved Date Need for immunization against influenza 02/15/2017 01/24/2018 Encounters Date Type Department Care Team Description 11/18/2024 3:00 PM CDT Office Visit [facility] Endocrinology Metabolism and Lipid [address] [facility] 13[address] [place] [address] [place] [address] Juliana Moreno PA Type 2 diabetes mellitus [...] with bursa removal (Added by TW Conv) FL ARTHRD ANT INTERBODY MIN DSC CRV BELOW C2 Cervical Vertebral Fusion - (Added by TW Conv) [place] NEUROPLASTY &/TRANSPOS MEDIAN NRV CARPAL TUNNE Neuroplasty [...] on file Legal Sex Male 11:53 PM BREAD PACKER Gender Identity Male 05/12/2020 11:21 AM BREAD PACKER Sexual Orientation Straight 05/12/2020 11 :21 AM BREAD PACKER Obstetrics History Last Filed Vital Signs Vital Sign Reading Time Taken Comments Blood Pressure 111/72 11/18/2024 2:51 PM CDT Pulse 83 11/18/2024 2:51 PM CDT Temperature 36.9 C (98.4 F) 11/18/2024 2:51 PM CDT Respiratory Rate 18 07/02/2024 1:45 PM BREAD PACKER Oxygen Saturation 97% 07/02/2024 1:45 PM BREAD PACKER Inhaled Oxygen Concentration - - Weight 98.9 [...] current use of insulin (HCC) POCT GLUCOSE 25134 Routine 11/18/2024 2: 53 PM CDT Type 2 diabetes mellitus with hyperglycemia, with long-term current use of insulin (HCC) DIABETIC EYE EXAM Routine 09/08/2021 ALBUMIN CREATININE RATIO, URINE Routine 03/21/2019 8:45 AM BREAD PACKER COLONOSCOPY 06/26/2018 8:12 AM BREAD PACKER from Last 3 Months or Most Recently [...] Albumin Creatinine Ratio, Urine (03/21/2019 8:45 AM BREAD PACKER) Creatinine, ur 98 20 - 320 mg/dL [facility] [place] Microalbumin, ur 0.5 See Note: mg/dL [facility] [place] Comment: Reference Range: Reference Range Not established Microalbumin/creat ratio 5 <30 mcg/mg creat [facility] [place] Comment: The ADA defines abnormalities in albumin excretion as follows: Category Result (mcg/mg creatinine) Normal <30 Microalbuminuria 30-299 Clinical albuminuria > OR = 300 The ADA recommends that at least two of three specimens collected within a 3-6 month period be abnormal before considering a patient to be within a diagnostic category. 03/21/2019 8:45 AM BREAD PACKER 03/21/2019 8:46 AM BREAD PACKER Narrative Resulting Agency Comment Performing Organization Information: Site ID: [place] Name: [facility] Address: [address] [place] [address] Director: Aram Turpin D.O., MPH us Lianne Oliveira MD LAB URINE ORDERABLES Final Result [facility] [place], [place] * COLONOSCOPY (06/26/2018 8:12 AM BREAD PACKER) Anatomical Region Laterality Modality Other Narrative Procedure Note Brynn Perez MD - 06/26/2018 8:12 AM CST [facility] Patient Name: Bowen Quintanilla Procedure Date: 06/26/2018 8:12 AM Date of : 1955 Admit Type: Outpatient Age: 63 Gender: Male Attending MD: Brynn Perez M.D. Room: [facility] 1 Note Status: Finalized Patient [...] passed under direct vision.The Pediatric Colonoscope PCF-H190L [id number] was introduced through the anus and advanced [...] organs K64.8, Other hemorrhoids CPT copyright 2017 [employer]. All rights reserved. The codes documented in this report are preliminary and upon manufacturing test technician reviewmay be revised to meet current compliance requirements. Recognized by the [employer] for promoting quality in endoscopy Brynn Perez MD ENDOSCOPY PROCEDURES Final Result from Last 3 Months or Most Recently Relevant to Health Maintenance Insurance MEDICARE [place] [employer] [place] MEDICARE AETNA SENIOR SUPPLEMENT MEDICARE AETNA SENIOR SUPPLEMENT Advance Directives For more information, please contact: [phone] * Full Code (Latest Code Status on File) Date Activated Date Inactivated Comments 06/26/2018 7:23 AM 06/26/2018 2:17 PM * Full Code Date Activated Date Inactivated Comments 06/26/2018 7:23 AM 06/26/2018 7:23 AM Care Teams Biochemical Engineer Relationship Specialty Start Date End Date Flavio Little MD PCP - General 08/09/07 Lianne Oliveira MD Referring Physician Endocrinology Diabetes & Metabolism 09/09/19 Ryann May NP Nurse Practitioner Nurse Practitioner 06/04/20 Maite Diamond MD [address] [place] [address] Medical Oncologist/Hematologis t Hematology 07/06/20 Lobito Burton MD PhD [address] [place] [address] Referring Physician Cardiology 08/24/20 Dimas Valle MD [address] [address] Consulting Physician Pulmonary Disease 08/24/21 [place] [address] [address] Referring Physician Physical Medicine and Rehabilitation 07/24/23 Juliana Moreno PA [address] [facility], [address] [address] Physician Group Fitness Assistant Department Head Physician Group Fitness Assistant Department Head 08/11/24
--- OUTSIDE RECORDS SUMMARY | 2024-12-15 11:00 | XMS_ITS | Clinical Summary ---
Author Organization [facility] Address [address] [place] [address] Care Team Providers Care Treadle Cut Off Saw Operator Name Role Phone Flavio Little MD Primary Care Provider [phone] Aram Abdul MD Unavailable Lianne Oliveira MD Unavailable [phone] Dimas Valle MD Unavailable [phone] Tucker Cowan MD Unavailable Source Comments [facility],non-owned Affiliates and Associated Physician Practices is amultiple site organization consisting of ambulatory clinics and hospital sitesin [place], [place], [place] and [place]. This disclosure is being madepursuant to the Care Everywhere program and may not contain all information available regarding this patient. Last updated 18.[facility] Allergies No known active allergies Medications [...] 20 MG capsule 11/10/19 Active HYDROcodone-acetam inophen ([place]) 10-325 MG tablet TAKE 1/2 TO 1 [...] Type Department Care Team Description 11/03/2024 Telephone [facility] Pain [facility] [id number] [place] [address] [address] [place] [address] Julieth Bautista Scheduling 10/23/2024 10:45 AM CDT Office Visit [facility] Pain Care [address] [facility] [address] [place] [address] Tucker Cowan MD Myofascial pain (Primary Dx); [...] Sex Assigned at Male 07/12/2022 5:24 PM CORRUGATOR HELPER Legal Sex Male 1:29 PM CORRUGATOR HELPER Gender Identity Male 07/12/2022 5:24 PM CORRUGATOR HELPER Sexual Orientation Straight 07/12/2022 5: 24 PM CORRUGATOR HELPER Last Filed Vital Signs Vital Sign Reading [...] Description 01/22/2025 10:45 AM CDT Office Visit [facility] Pain Care [address] [facility] [address] [place] [address]. [place] [address] [place] [address] [facility] [address] [place], [place] [id number] Health Maintenance Due Date Last Done Comments [...] this topic Medical Devices Implanted Type Area Retail Department Manager Device Identifier Shelf Expiration Date Model / Serial / Lot Shell Actb 58mm Hip Lmt Hl Clr Cd Pps G7 - [id number] Implanted:Qty: 1 on 08/09/2022 by German Mendes MD at [facility] Right: Hip [employer] 05/11/2032 [id number] / [id number] / [id number] Linr Actb G7 G 40mm Vivacit-E Hip Lum - [id number] Implanted:Qty: 1 on 08/09/2022 by German Mendes MD at [facility] Right: Hip [employer] 06/09/2025 [id number] / [id number] / [id number] Screw 6.5mm 30mm Slf-Tap Actb Cody Trlg - [id number] Implanted:Qty: 1 on 08/09/2022 by German Mendes MD at [facility] Right: Hip [employer] 05/16/2031 [id number] / [id number] / [id number] Stem Fem 13mm 145mm Hip 135d Std Ofst Implanted:Qty: 1 on 08/09/2022 by German Mendes MD at [facility] Right: Hip [employer] 04/06/2032 [id number] / / [id number] Slv Centering G7 -6mm Ofst Tpr Hip Ti Ty Implanted:Qty: 1 on 08/09/2022 by German Mendes MD at [facility] Right: Hip [employer] 03/03/2032 [id number] / / [id number] Head Fem 40mm Hip Blx D Biolox Optn G7 Implanted:Qty: 1 on 08/09/2022 by German Mendes MD at [facility] Right: Hip [employer] 03/11/2028 [id number] / / [id number] Explanted Type Area Retail Department Manager Device Identifier Shelf Expiration Date Model / Serial / Lot Pin Fx 22.9cm 4mm Stnm Thrd Ss 1 End Explanted:Qty: 1 on 08/09/2022 at [facility] Right: Hip [employer] [id number] / / Procedures Procedure Name Priority Date/Time Associated Diagnosis Comments COMPREHENSIVE METABOLIC PANEL STAT 07/12/2022 10:33 AM CORRUGATOR HELPER Pre-op evaluation HEMOGLOBIN A1C STAT 07/12/2022 10:33 AM CORRUGATOR HELPER Pre-op evaluation from Last 3 Months or Most Recently Relevant to Health Maintenance Results * (ABNORMAL) HEMOGLOBIN A1C (07/12/2022 10:33 AM CORRUGATOR HELPER) Hemoglobin A1c 7.2(H) <5.7 % 07/12/2022 10:54 AM CORRUGATOR HELPER [facility] Estimated Average Glucose 160 mg/dL 07/12/2022 10:54 AM CORRUGATOR HELPER [facility] Blood BLOOD SPECIMEN / Unknown Venipuncture / Unknown 07/12/2022 10:33 AM CORRUGATOR HELPER 07/12/2022 10:41 AM CORRUGATOR HELPER Narrative [facility] - 07/12/2022 10:54 AM CORRUGATOR HELPER HbA1c Interpretation: Normal: < 5.7% Pre-diabetes: 5.7-6.4% [...] exceeds 5% in the specimen. The [employer] Lead assay for the measurement of HbA1c is a National Glycohemoglobin Standardization Program (NGSP) certified method. Sigrid Glover [facility]OM[facility] - CHEMISTRY ORDE ARMANI Final Result [facility] [address] [place] [address] * (ABNORMAL) COMPREHENSIVE METABOLIC PANEL (07/12/2022 10:33 AM CORRUGATOR HELPER) Glucose 145(H) 70 - 105 mg/dL 07/12/2022 11:00 AM [facility] Sodium 137 136 - 145 mmol/L 07/12/2022 11:00 AM [facility] Potassium 4.3 3.5 - 5.1 mmol/L 07/12/2022 11:00 AM [facility] Chloride 104 98 - 107 mmol/L 07/12/2022 11:00 AM [facility] CO2 23 23 - 31 mmol/L 07/12/2022 11:00 AM [facility] Calcium 9.2 8.4 - 10.4 mg/dL 07/12/2022 11:00 AM [facility] Anion Gap 10 8 - 18 mmol/L 07/12/2022 11:00 AM [facility] BUN 21 8.4 - 25.7 mg/dL 07/12/2022 11:00 AM [facility] Creatinine 1.06 0.72 - 1.25 mg/dL 07/12/2022 11:00 AM [facility] Alkaline Phosphatase 84 40 - 150 U/L 07/12/2022 11:00 AM [facility] ALT 28 0 - 61 U/L 07/12/2022 11:00 AM [facility] AST 24 5 - 34 U/L 07/12/2022 11:00 AM CORRUGATOR HELPER [facility] Protein Total 7.3 6.4 - 8.3 gm/dL 07/12/2022 11:00 AM CORRUGATOR HELPER [facility] Albumin 4.2 3.2 - 4.6 gm/dL 07/12/2022 11:00 AM CORRUGATOR HELPER [facility] Bilirubin Total 0.3 0.2 - 1.2 mg/dL 07/12/2022 11:00 AM CORRUGATOR HELPER [facility] eGFR by CKD-EPI 76(L) >=90 mL/min/1.7 3 m2 07/12/2022 11:00 AM CORRUGATOR HELPER [facility] Blood BLOOD SPECIMEN / Unknown Venipuncture / Unknown 07/12/2022 10:33 AM CORRUGATOR HELPER 07/12/2022 10:41 AM CORRUGATOR HELPER Sigrid Glover OLEOMARG[facility] - CHEMISTRY ORDE ARMANI Final Result [facility] [address] [place] [address] from Last 3 Months or Most Recently Relevant to Health Maintenance Insurance MEDICARE AETNA Advance Directives * Full Code (Latest Code Status on File) Date Activated Date Inactivated Comments 08/09/2022 12:02 PM 08/10/2022 2:01 PM Care Teams Treadle Cut Off Saw Operator Relationship Specialty Start Date End Date Flavio Little MD [address] [place] [address] PCP - General Internal Medicine 07/17/17 [place] [address] [place] [address] Orthopedic Surgery 07/17/17 Lianne Oliveira MD [address] [address] Endocrinology 07/12/22 Dimas Valle MD [address] [facility] [facility] [address] [place] [address] Pulmonary Disease 07/12/22 [place] [address] [place] [address] Physical Medicine and Rehabilitation 10/23/22
[2024-12-15 11:34] LABS: Hematocrit 52.1 % (37.0-46.0); Hemoglobin 16.9 g/dL (12.4-15.3); Immature Granulocyte Percent A 1.2 % (0.0-0.0); Lymphocytes Absolute Auto 1.64 K/mm3 (1.10-4.50); Mean Corpuscular HGB Conc 32.4 g/dL (32-36); Mean Corpuscular Hemoglobin 28.8 pg (27.0-31.0); Mean Corpuscular Volume 88.8 fL (78.0-102.0); Nucleated Red Blood Cells Absolute Auto 0.00 K/mm3 (0.00-0.00); Nucleated Red Blood Cells Perc 0.0 % (0-0.0); Platelet Count Result 274 K/mm3 (150-420); Red Blood Count 5.87 M/mm3 (4.70-6.10); White Blood Count 14.3 K/mm3 (4.8-10.8)
[2024-12-15 12:25] LABS: Alanine Aminotransferase 38 U/L (6-50); Albumin Level 4.6 g/dL (3.5-5.1); Alkaline Phosphatase 84 U/L (38-126); Anion Gap 10 mmol/L (4-12); Aspartate Amino Transferase 37 U/L (17-59); Bilirubin,Total 1.0 mg/dL (0.2-1.3); Blood Urea Nitrogen 16 mg/dL (9-20); CRP 4.5 mg/dL (<1.0); Calcium 9.2 mg/dL (8.4-10.2); Carbon Dioxide 27 mmol/L (22-30); Chloride 101 mmol/L (98-107); Estimated Glomerular Filt Rate > 60; Glucose 87 mg/dL (65-110); Osmolality Calculated 286 mOsm/kg (285-295); Potassium 4.5 mmol/L (3.4-5.0); Sodium 138 mmol/L (137-145); Total Protein 7.6 g/dL (6.3-8.2)
== END 2024-12-15 10:54 | disposition home or self-care (01) ==
LOC: CHSLAB 10:55
PROVIDERS: PCP Internal Medicine; Visit Provider Internal Medicine
DX: R05.9 Cough, unspecified (principal)
CPT/HCPCS: 36415; 80053; 85025; 86140

== ENCOUNTER 2024-12-19 11:10 | Outpatient (CLI) | payer MEDICARE, SELFPAY ==
--- OUTSIDE RECORDS SUMMARY | 2024-12-19 11:14 | XMS_ITS | Encounter Summary ---
Author Organization [facility] Address [address] [place] [address] Phone Care Team Providers Care Corporate Librarian Name Role Phone Flavio Little MD Primary Care Provider [phone] Lianne Oliveira MD Unavailable [phone] Ryann May NP Unavailable [phone] Maite Diamond MD Unavailable [phone] Lobito Burton MD PhD Unavailable [phone] Dimas Valle MD Unavailable [phone] Tucker Bai MD Unavailable Juliana Moreno Unavailable [phone] Encounter Details Date Type Department Care Team [...] on file Legal Sex Male 11:53 PM ELEMENTARY SUPERVISOR Gender Identity Male 05/12/2020 11:21 AM ELEMENTARY SUPERVISOR Sexual Orientation Straight 05/12/2020 11 :21 AM ELEMENTARY SUPERVISOR documented as of this encounter Plan of Treatment Not on file documented as of this encounter Procedures Procedure Name Priority Date/Time Associated Diagnosis Comments SCAN - LABS 08/03/2017 documented in this encounter Results * SCAN - LABS (08/03/2017) us Provider Scanning Final Result documented in this encounter Visit Diagnoses Not on filedocumented in this encounter Care Teams Corporate Librarian Relationship Specialty Start Date End Date Flavio Little MD PCP - General 08/09/07 Lianne Oliveira MD Referring Physician Endocrinology Diabetes & Metabolism 09/09/19 Ryann May NP Nurse Practitioner Nurse Practitioner 06/04/20 Maite Diamond MD [address] [place] [address] Medical Oncologist/Hematologis t Hematology 07/06/20 Lobito Burton MD PhD [address] [place] [address] Referring Physician Cardiology 08/24/20 Dimas Valle MD [address] [address] Consulting Physician Pulmonary Disease 08/24/21 [place] [address] [address] Referring Physician Physical Medicine and Rehabilitation 07/24/23 Juliana Moreno PA [address] [facility], [address] [address] Physician Conventions Assistant Physician Conventions Assistant 08/11/24 documented as of this encounter
--- OUTSIDE RECORDS SUMMARY | 2024-12-19 11:14 | XMS_ITS | Clinical Summary ---
Author Organization [facility] Address [address] [place] [address] Care Team Providers Care Worship Leader Name Role Phone Flavio Little MD Primary Care Provider [phone] Lianne Oliveira MD Unavailable Ryann May NP Unavailable Maite Diamond MD Unavailable Lobito Burton MD PhD Unavailable [phone] Dimas Valle MD Unavailable [phone] Tucker Bai MD Unavailable Juliana Moreno [...] hyperglycemia, with long-term current use of insulin ([facility]) Use to check blood sugar 4 times daily 1 each 1 05/24/19 Active alcohol swabs (Alcohol Wipes) pads, medicatedIndicati ons:Type 2 diabetes mellitus with hyperglycemia, with long-term current use of insulin ([facility]) Use alcohol wipes 4 times per day. 400 each 3 05/31/19 Active lancets miscIndications:T ype 2 diabetes mellitus with hyperglycemia, with long-term current use of insulin ([facility]) Use to check blood sugar 3 times daily 300 each 3 06/30/19 Active True Metrix Glucose Test Strip stripIndications: Type 2 diabetes mellitus with hyperglycemia, with long-term current use of insulin ([facility]),Uncontrolle d type 2 diabetes mellitus with hyperglycemia ([facility]) USE FOR TESTING THREE TIMES DAILY [...] hyperglycemia, with long-term current use of insulin ([facility]),Uncontrolle d type 2 diabetes mellitus with hyperglycemia (HCC) Take 1 tablet (10 mg total) by mouth daily 90 tablet 3 05/14/19 25 Active tirzepatide (Mounjaro) 10 mg/0.5 mL pen injector injectionIndicati ons:Type 2 diabetes mellitus with hyperglycemia, with long-term current use of insulin ([facility]) INJECT 0.5ML UNDER THE SKIN EVERY 7 DAYS. 6 mL 3 07/01/19 25 Active metFORMIN XR (GLUCOPHAGE XR) 500 mg 24 hr tabletIndications :Type 2 diabetes mellitus with hyperglycemia, with long-term current use of insulin ([facility]),Uncontrolle d type 2 diabetes mellitus with hyperglycemia ([facility]) TAKE 2 TABLETS (1000MG TOTAL) TWO TIMES A DAY 360 tablet 3 07/01/19 25 Active pen needle, diabetic 32 gauge x 5/32 needleIndications :Type 2 diabetes mellitus with hyperglycemia, with long-term current use of insulin ([facility]) Use for 4 shots daily 400 each 3 07/01/19 25 Active rOPINIRole (REQUIP) 1 mg tabletIndications :PLMD (periodic limb movement disorder) Take 1 tablet (1 mg total) by mouth nightly 90 tablet 3 07/02/19 25 Active insulin aspart (NovoLOG) 100 unit/mL (3 mL) pen for injectionIndicati ons:Type 2 diabetes mellitus with hyperglycemia, with long-term current use of insulin ([facility]),Uncontrolle d type 2 diabetes mellitus with hyperglycemia (HCC) Inject 8 units under the skin with meals, 2 units with high starches or snacks, plus 1 unit for every 25 points >150. Max TDD 45 units daily 08/13/19 25 Active insulin glargine 100 unit/mL (3 mL) pen for injectionIndicati ons:Type 2 diabetes mellitus with hyperglycemia, with long-term current use of insulin ([facility]) Inject 60 units under the skin nightly 08/13/19 25 Active multivitamin tablet With 400 international units vitamin D Daily Active Active Problems Problem Noted Date Diagnosed Date Diabetic peripheral neuropathy 01/11/2022 Assessment & Plan (08/16/2024 7:20 PM CDT): Clinically much improved. Unable to tolerate gabapentin and no longer needs alpha lipoic acid. Assessment & Plan (05/27/2024 3:55 PM CALL BOX WIRER): - Currently receives steroid injections in his [...] booster Assessment & Plan (05/25/2021 2:52 PM CALL BOX WIRER): Pfizer vaccine x3; booster dose mid-February 2021. He will send me precise dates so we can record accurately. Ulnar nerve compression, left 08/03/2020 Carpal tunnel syndrome, bilateral upper limbs Hair loss 07/12/2020 Overview (07/12/2020): ? Related to chemotherapy PLMD (periodic limb movement disorder) Assessment & Plan (07/02/2024 2:16 PM CALL BOX WIRER): The patient continues Requip 1 mg nightly Assessment & Plan (06/27/2023 1:37 PM CALL BOX WIRER): Patient continue with Requip 1 mg p.o. Q bedtime. The patient states that this is controlling his limbs well. I have sent in prescription in for 90 day supply with three refills to [facility]. Assessment & Plan (06/28/2022 2:22 PM CALL BOX WIRER): Patient continue with Requip 1 mg p.o. Q bedtime. Assessment & Plan (06/29/2021 1:44 PM CALL BOX WIRER): I will increase the patient's Requip to 1 mg. The patient was advised that he can take two of the 0.5 tablets until they completed. Assessment & Plan (05/19/2020 10:49 AM CALL BOX WIRER): The patient continues to benefit from Requip 0.5 mg at bedtime. He was requesting a refill. Erythrocytosis 07/12/2018 Leukocytosis 07/12/2018 History of colon polyps 06/10/2018 Overview (06/10/2018): Added automatically from request for surgery [id number] Family history of colon cancer 06/10/2018 Overview (06/10/2018): Added automatically from request for surgery [id number] Allergic rhinitis 01/24/2018 Primary osteoarthritis of left [...] control Assessment & Plan (05/27/2024 3:57 PM CALL BOX WIRER): - Last LDL 95 (01/2024), above goal [...] control Assessment & Plan (05/25/2021 2:51 PM CALL BOX WIRER): Continue statin, optimize glycemic control Assessment & Plan (11/15/2020 10:18 AM CDT): Continue statin, optimize glycemic control Assessment & Plan (06/04/2020 3:30 PM CALL BOX WIRER): Continue statin, optimize glycemic control Assessment & [...] Value Date HGBA1C 6.2 (A) 11/18/2024 Per [place] [employer], goal A1c is less 7% [...] PCP. Assessment & Plan (05/27/2024 3:54 PM CALL BOX WIRER): - Diabetes is complicated by neuropathy, hypertension, hyperlipidemia and obesity. Controlled. Lab Results Component Value Date HGBA1C 6.1 05/27/2024 Per [place] [employer], goal A1c is less 7% [...] that I am available via phone or [employer] if they have any concerns for hypo/hyperglycemia, medication refills, etc. Assessment & Plan (02/02/2024 3:00 PM CDT): Glucoses overall within a good range of control and safety. Assessment & Plan (10/24/2023 2:14 PM CDT): - Diabetes is complicated by neuropathy, HTN, HLD and obesity. Controlled. Lab Results Component Value Date HGBA1C 6.2 10/24/2023 Per [place] [employer], goal A1c is less 7% [...] labs are due. Dr. Oliveira sent to [facility] in July. Encouraged patient to complete them [...] safety. Assessment & Plan (05/25/2021 2:50 PM CALL BOX WIRER): Suboptimal control, but tends to snack. Will [...] safety Assessment & Plan (06/04/2020 3:29 PM CALL BOX WIRER): Glucoses a little higher than target, but [...] osteoarthritis. Assessment & Plan (05/27/2024 3:57 PM CALL BOX WIRER): - Continue Mounjaro 10 mg weekly. Consider [...] management Assessment & Plan (05/27/2024 3:56 PM CALL BOX WIRER): - At goal today - Continue current [...] hypoglycemia. Assessment & Plan (06/04/2020 3:30 PM CALL BOX WIRER): Need to minimize risk of hypoglycemia Depression 05/07/2002 Overview (08/11/2016): DEPRESSIVE DISORDER NEC Obstructive sleep apnea syndrome 05/07/2002 Overview (08/11/2016): OBSTRUCTIVE SLEEP APNEA Assessment & Plan (07/02/2024 2:16 PM CALL BOX WIRER): The patient will continue CPAP at 16 cm water pressure. Denied need for supplies. DME adapt Assessment & Plan (06/27/2023 1:37 PM CALL BOX WIRER): The patient continues to wear his CPAP at 16 cm water pressure while sleeping. His DME is [facility] Assessment & Plan (06/28/2022 2:21 PM CALL BOX WIRER): I will increase the patient's CPAP 16 cm water pressure while sleeping due to the snoring. His DME is [facility] Assessment & Plan (06/29/2021 1:43 PM CALL BOX WIRER): I will increase the patient's CPAP 16 cm water pressure while sleeping. His DME is [facility]. Assessment & Plan (05/19/2020 10:49 AM CALL BOX WIRER): The patient continues to benefit from CPAP at 14 cm water pressure. His DME is [facility]. Anxiety state 05/07/2002 Overview (08/11/2016): ANXIETY STATE NOS Resolved Problems Problem Noted Date Diagnosed Date Resolved Date Need for immunization against influenza 02/15/2017 01/24/2018 Encounters Date Type Department Care Team Description 11/18/2024 3:00 PM CDT [facility] Endocrinology Metabolism and Lipid [address] [facility] [address] [place] [address] [place] [address] Juliana Moreno PA Type 2 diabetes mellitus [...] with bursa removal (Added by TW Conv) DE ARTHRD ANT INTERBODY MIN DSC CRV BELOW C2 Cervical Vertebral Fusion - (Added by TW Conv) DE NEUROPLASTY &/TRANSPOS MEDIAN NRV CARPAL TUNNE Neuroplasty [...] on file Legal Sex Male 11:53 PM CALL BOX WIRER Gender Identity Male 05/12/2020 11:21 AM CALL BOX WIRER Sexual Orientation Straight 05/12/2020 11 :21 AM CALL BOX WIRER Obstetrics History Last Filed Vital Signs Vital Sign Reading Time Taken Comments Blood Pressure 111/72 11/18/2024 2:51 PM CDT Pulse 83 11/18/2024 2:51 PM CDT Temperature 36.9 C (98.4 F) 11/18/2024 2:51 PM CDT Respiratory Rate 18 07/02/2024 1:45 PM CALL BOX WIRER Oxygen Saturation 97% 07/02/2024 1:45 PM CALL BOX WIRER Inhaled Oxygen Concentration - - Weight 98.9 [...] current use of insulin (HCC) POCT GLUCOSE [id number] Routine 11/18/2024 2: 53 PM CDT Type 2 diabetes mellitus with hyperglycemia, with long-term current use of insulin (HCC) DIABETIC EYE EXAM Routine 09/08/2021 ALBUMIN CREATININE RATIO, URINE Routine 03/21/2019 8:45 AM CALL BOX WIRER COLONOSCOPY 06/26/2018 8:12 AM CALL BOX WIRER from Last 3 Months or Most Recently [...] Albumin Creatinine Ratio, Urine (03/21/2019 8:45 AM CALL BOX WIRER) Creatinine, ur 98 20 - 320 mg/dL [facility] [place] Microalbumin, ur 0.5 See Note: mg/dL [facility] [place] Comment: Reference Range: Reference Range Not established Microalbumin/creat ratio 5 <30 mcg/mg creat [facility] [place] Comment: The ADA defines abnormalities in albumin excretion as follows: Category Result (mcg/mg creatinine) Normal <30 Microalbuminuria 30-299 Clinical albuminuria > OR = 300 The ADA recommends that at least two of three specimens collected within a 3-6 month period be abnormal before considering a patient to be within a diagnostic category. 03/21/2019 8:45 AM CALL BOX WIRER 03/21/2019 8:46 AM CALL BOX WIRER Narrative Resulting Agency Comment Performing Organization Information: Site ID: [place] Name: [email or web address] Address: [address] [place] [address] Director: Aram Turpin D.O., MPH us Lianne Oliveira MD LAB URINE ORDERABLES Final Result [facility] [email or web address] [facility] [place], [place] * COLONOSCOPY (06/26/2018 8:12 AM CALL BOX WIRER) Anatomical Region Laterality Modality Other Narrative Procedure Note Brynn Perez MD - 06/26/2018 8:12 AM CST [facility] Patient Name: Bowen Quintanilla Procedure Date: 06/26/2018 8:12 AM Date of : 1955 Admit Type: Outpatient Age: 63 Gender: Male Attending MD: Brynn Perez M.D. Room: [facility] ENDOSCOPY ROOM 1 Note Status: Finalized Patient [...] passed under direct vision.The Pediatric Colonoscope PCF-H190L [id number] was introduced through the anus and advanced [...] organs K64.8, Other hemorrhoids CPT copyright 2017 [employer]. All rights reserved. The codes documented in this report are preliminary and upon drug abuse resistance education officer reviewmay be revised to meet current compliance requirements. Recognized by the [place] [employer] for promoting quality in endoscopy Brynn Perez MD ENDOSCOPY PROCEDURES Final Result from Last 3 Months or Most Recently Relevant to Health Maintenance Insurance MEDICARE [place] [employer] MEDICARE AETNA SENIOR SUPPLEMENT MEDICARE AETNA SENIOR SUPPLEMENT Advance Directives For more information, please contact: [phone] * Full Code (Latest Code Status on File) Date Activated Date Inactivated Comments 06/26/2018 7:23 AM 06/26/2018 2:17 PM * Full Code Date Activated Date Inactivated Comments 06/26/2018 7:23 AM 06/26/2018 7:23 AM Care Teams Worship Leader Relationship Specialty Start Date End Date Flavio Little MD PCP - General 08/09/07 Lianne Oliveira MD Referring Physician Endocrinology Diabetes & Metabolism 09/09/19 Ryann May NP Nurse Practitioner Nurse Practitioner 06/04/20 Maite Diamond MD [address] [place] [address] Medical Oncologist/Hematologis t Hematology 07/06/20 Lobito Burton MD PhD [address] [place] [address] Referring Physician Cardiology 08/24/20 Dimas Valle MD [address] [address] Consulting Physician Pulmonary Disease 08/24/21 [place] [address] [address] Referring Physician Physical Medicine and Rehabilitation 07/24/23 Juliana Moreno PA [address] [facility] ENDOCRINOLOGY, [address] [address] Physician Employee Training Specialist Physician Employee Training Specialist 08/11/24
--- OUTSIDE RECORDS SUMMARY | 2024-12-19 11:14 | XMS_ITS | Clinical Summary ---
Author Organization [facility] Address [address] [place] [address] Care Team Providers Care Wet Crown Blocking Operator Name Role Phone Flavio Little MD Primary Care Provider [phone] Aram Abdul MD Unavailable Lianne Oliveira MD Unavailable [phone] Dimas Valle MD Unavailable [phone] Tucker Cowan MD Unavailable Source Comments [facility],non-owned Affiliates and Associated Physician Practices is amultiple site organization consisting of ambulatory clinics and hospital sitesin [place], [place], [place] and [place]. This disclosure is being madepursuant to the Care Everywhere program and may not contain all information available regarding this patient. Last updated 18.[facility] Allergies No known active allergies Medications [...] 20 MG capsule 11/10/19 Active HYDROcodone-acetam inophen ([place]) 10-325 MG tablet TAKE 1/2 TO 1 [...] Type Department Care Team Description 11/03/2024 Telephone [facility] [id number] [place] [address] [address] [facility] [place] [address] Julieth Bautista Scheduling 10/23/2024 10:45 AM CDT Office Visit [facility] [address] [facility] [address] [facility] [place] [address] Tucker Cowan MD Myofascial pain (Primary Dx); [...] Sex Assigned at Male 07/12/2022 5:24 PM DOOR OPERATOR Legal Sex Male 1:29 PM DOOR OPERATOR Gender Identity Male 07/12/2022 5:24 PM DOOR OPERATOR Sexual Orientation Straight 07/12/2022 5: 24 PM DOOR OPERATOR Last Filed Vital Signs Vital Sign Reading [...] Description 01/22/2025 10:45 AM CDT Office Visit [facility] [address] [facility] [address] [place] [address]. [place] [address] [place] [address] [address] [facility] [address] [place], [place] [id number] Health Maintenance Due Date Last Done Comments [...] this topic Medical Devices Implanted Type Area Forestry Extension Specialist Device Identifier Shelf Expiration Date Model / Serial / Lot Shell Actb 58mm Hip Lmt Hl Clr Cd Pps G7 - [id number] Implanted:Qty: 1 on 08/09/2022 by German Mendes MD at [facility] Right: Hip [employer] 05/11/2032 [id number] / [id number] / [id number] Linr Actb G7 G 40mm Vivacit-E Hip Lum - [id number] Implanted:Qty: 1 on 08/09/2022 by German Mendes MD at [facility] Right: Hip [employer] 06/09/2025 [id number] / [id number] / [id number] Screw 6.5mm 30mm Slf-Tap Actb Cody Trlg - [id number] Implanted:Qty: 1 on 08/09/2022 by German Mendes MD at [facility] Right: Hip [employer] 05/16/2031 [id number] / [id number] / [id number] Stem Fem 13mm 145mm Hip 135d Std Ofst Implanted:Qty: 1 on 08/09/2022 by German Mendes MD at [facility] Right: Hip [employer] 04/06/2032 [id number] / / [id number] Slv Centering G7 -6mm Ofst Tpr Hip Ti Ty Implanted:Qty: 1 on 08/09/2022 by German Mendes MD at [facility] Right: Hip [employer] 03/03/2032 [id number] / / [id number] Head Fem 40mm Hip Blx D Biolox Optn G7 Implanted:Qty: 1 on 08/09/2022 by German Mendes MD at [facility] Right: Hip [employer] 03/11/2028 [id number] / / [id number] Explanted Type Area Forestry Extension Specialist Device Identifier Shelf Expiration Date Model / Serial / Lot Pin Fx 22.9cm 4mm Stnm Thrd Ss 1 End Explanted:Qty: 1 on 08/09/2022 at [facility] Right: Hip [employer] [id number] / / Procedures Procedure Name Priority Date/Time Associated Diagnosis Comments COMPREHENSIVE METABOLIC PANEL STAT 07/12/2022 10:33 AM DOOR OPERATOR Pre-op evaluation HEMOGLOBIN A1C STAT 07/12/2022 10:33 AM DOOR OPERATOR Pre-op evaluation from Last 3 Months or Most Recently Relevant to Health Maintenance Results * (ABNORMAL) HEMOGLOBIN A1C (07/12/2022 10:33 AM DOOR OPERATOR) Hemoglobin A1c 7.2(H) <5.7 % 07/12/2022 10:54 AM DOOR OPERATOR [facility] Estimated Average Glucose 160 mg/dL 07/12/2022 10:54 AM DOOR OPERATOR [facility] Blood BLOOD SPECIMEN / Unknown Venipuncture / Unknown 07/12/2022 10:33 AM DOOR OPERATOR 07/12/2022 10:41 AM DOOR OPERATOR Narrative [facility] - 07/12/2022 10:54 AM DOOR OPERATOR HbA1c Interpretation: Normal: < 5.7% Pre-diabetes: 5.7-6.4% [...] exceeds 5% in the specimen. The [place] Printer Apprentice assay for the measurement of HbA1c is a National Glycohemoglobin Standardization Program (NGSP) certified method. Sigrid Glover MAINTENANCE TRUCK DRIVER-COMMERCIAL ESCROW ASSISTANT LAB - CHEMISTRY ORDE ARMANI Final Result [facility] [address] [place] [address] * (ABNORMAL) COMPREHENSIVE METABOLIC PANEL (07/12/2022 10:33 AM DOOR OPERATOR) Glucose 145(H) 70 - 105 mg/dL 07/12/2022 11:00 AM [facility] Sodium 137 136 - 145 mmol/L 07/12/2022 11:00 AM [facility] Potassium 4.3 3.5 - 5.1 mmol/L 07/12/2022 11:00 AM [facility] Chloride 104 98 - 107 mmol/L 07/12/2022 11:00 AM [facility] CO2 23 23 - 31 mmol/L 07/12/2022 11:00 AM [facility] Calcium 9.2 8.4 - 10.4 mg/dL 07/12/2022 11:00 AM [facility] Anion Gap 10 8 - 18 mmol/L 07/12/2022 11:00 AM [facility] BUN 21 8.4 - 25.7 mg/dL 07/12/2022 11:00 AM [facility] Creatinine 1.06 0.72 - 1.25 mg/dL 07/12/2022 11:00 AM [facility] Alkaline Phosphatase 84 40 - 150 U/L 07/12/2022 11:00 AM [facility] ALT 28 0 - 61 U/L 07/12/2022 11:00 AM [facility] AST 24 5 - 34 U/L 07/12/2022 11:00 AM DOOR OPERATOR [facility] Protein Total 7.3 6.4 - 8.3 gm/dL 07/12/2022 11:00 AM DOOR OPERATOR [facility] Albumin 4.2 3.2 - 4.6 gm/dL 07/12/2022 11:00 AM DOOR OPERATOR [facility] Bilirubin Total 0.3 0.2 - 1.2 mg/dL 07/12/2022 11:00 AM DOOR OPERATOR [facility] eGFR by CKD-EPI 76(L) >=90 mL/min/1.7 3 m2 07/12/2022 11:00 AM DOOR OPERATOR [facility] Blood BLOOD SPECIMEN / Unknown Venipuncture / Unknown 07/12/2022 10:33 AM DOOR OPERATOR 07/12/2022 10:41 AM DOOR OPERATOR Sigrid Glover MAINTENANCE TRUCK DRIVER-COMMERCIAL ESCROW ASSISTANT LAB - CHEMISTRY ORDE ARMANI Final Result [facility] [address] [place] [address] from Last 3 Months or Most Recently Relevant to Health Maintenance Insurance MEDICARE AETNA Advance Directives * Full Code (Latest Code Status on File) Date Activated Date Inactivated Comments 08/09/2022 12:02 PM 08/10/2022 2:01 PM Care Teams Wet Crown Blocking Operator Relationship Specialty Start Date End Date Flavio Little MD [address] [place] [address] PCP - General Internal Medicine 07/17/17 [place] [address] [place] [address] Orthopedic Surgery 07/17/17 Lianne Oliveira MD [address] [address] Endocrinology 07/12/22 Dimas Valle MD [address] [facility] [address] [address] Pulmonary Disease 07/12/22 [place] [address] [place] [address] Physical Medicine and Rehabilitation 10/23/22
[2024-12-19 11:21] LABS: Hematocrit 49.9 % (37.0-46.0); Hemoglobin 16.2 g/dL (12.4-15.3); Mean Corpuscular HGB Conc 32.5 g/dL (32-36); Mean Corpuscular Hemoglobin 28.4 pg (27.0-31.0); Mean Corpuscular Volume 87.4 fL (78.0-102.0); Platelet Count Result 295 K/mm3 (150-420); Red Blood Count 5.71 M/mm3 (4.70-6.10); White Blood Count 14.3 K/mm3 (4.8-10.8)
== END 2024-12-19 11:11 | disposition home or self-care (01) ==
LOC: CHSLAB 11:13
PROVIDERS: PCP Internal Medicine; Visit Provider Internal Medicine
DX: R05.9 Cough, unspecified (principal)
CPT/HCPCS: 36415; 85027

== ENCOUNTER 2024-12-23 12:01 | Outpatient (CLI) | payer MEDICARE, SELFPAY ==
--- NOTE | 2024-12-23 | CONSULT_PTH ---
PATIENT: Bowen Quintanilla [facility][id number] AGE/SX: 69/M ROOM: RE12/23/[address]: Flavio Little MD : 1955 BED: DIS: 12/23/2024 SPEC #: [id number] RECD: 12/23/24 15:43 STATUS: ISABEL CHAMBERS #: [id number] ANUJ: 12/23/24 00:[address]: Flavio Little DEPT: [facility] Consult RECD BY: Joelle West [place],([place] [facility]) Tissues: A - Peripheral Smear Procedures: Hematology Consult
--- OUTSIDE RECORDS SUMMARY | 2024-12-23 12:16 | XMS_ITS | Clinical Summary ---
Author Organization [facility] Address [address] [facility] [place] [address] Care Team Providers Care Radiologic Therapist Name Role Phone Flavio Little MD Primary Care Provider [phone] Lianne Oliveira MD Unavailable Ryann May NP Unavailable [phone] Maite Diamond MD Unavailable Lobito Burton MD PhD Unavailable Dimas Valle MD Unavailable [phone] Tucker Bai MD Unavailable Juliana Moreno [...] hyperglycemia, with long-term current use of insulin ([facility]) Use to check blood sugar 4 times daily 1 each 1 05/24/19 Active alcohol swabs (Alcohol Wipes) pads, medicatedIndicati ons:Type 2 diabetes mellitus with hyperglycemia, with long-term current use of insulin ([facility]) Use alcohol wipes 4 times per day. 400 each 3 05/31/19 Active lancets miscIndications:T ype 2 diabetes mellitus with hyperglycemia, with long-term current use of insulin ([facility]) Use to check blood sugar 3 times daily 300 each 3 06/30/19 Active True Metrix Glucose Test Strip stripIndications: Type 2 diabetes mellitus with hyperglycemia, with long-term current use of insulin ([facility]),Uncontrolle d type 2 diabetes mellitus with hyperglycemia ([facility]) USE FOR TESTING THREE TIMES DAILY DIRECTED [...] hyperglycemia, with long-term current use of insulin ([facility]),Uncontrolle d type 2 diabetes mellitus with hyperglycemia (HCC) Take 1 tablet (10 mg total) by mouth daily 90 tablet 3 05/14/19 25 Active tirzepatide (Mounjaro) 10 mg/0.5 mL pen injector injectionIndicati ons:Type 2 diabetes mellitus with hyperglycemia, with long-term current use of insulin ([facility]) INJECT 0.5ML UNDER THE SKIN EVERY 7 DAYS. 6 mL 3 07/01/19 25 Active metFORMIN XR (GLUCOPHAGE XR) 500 mg 24 hr tabletIndications :Type 2 diabetes mellitus with hyperglycemia, with long-term current use of insulin ([facility]),Uncontrolle d type 2 diabetes mellitus with hyperglycemia ([facility]) TAKE 2 TABLETS (1000MG TOTAL) TWO TIMES A DAY 360 tablet 3 07/01/19 25 Active pen needle, diabetic 32 gauge x 5/32 needleIndications :Type 2 diabetes mellitus with hyperglycemia, with long-term current use of insulin ([facility]) Use for 4 shots daily 400 each 3 07/01/19 25 Active rOPINIRole (REQUIP) 1 mg tabletIndications :PLMD (periodic limb movement disorder) Take 1 tablet (1 mg total) by mouth nightly 90 tablet 3 07/02/19 25 Active insulin aspart (NovoLOG) 100 unit/mL (3 mL) pen for injectionIndicati ons:Type 2 diabetes mellitus with hyperglycemia, with long-term current use of insulin ([facility]),Uncontrolle d type 2 diabetes mellitus with hyperglycemia (HCC) Inject 8 units under the skin with meals, 2 units with high starches or snacks, plus 1 unit for every 25 points >150. Max TDD 45 units daily 08/13/19 25 Active insulin glargine 100 unit/mL (3 mL) pen for injectionIndicati ons:Type 2 diabetes mellitus with hyperglycemia, with long-term current use of insulin ([facility]) Inject 60 units under the skin nightly 08/13/19 25 Active multivitamin tablet With 400 international units vitamin D Daily Active Active Problems Problem Noted Date Diagnosed Date Diabetic peripheral neuropathy 01/11/2022 Assessment & Plan (08/16/2024 7:20 PM CDT): Clinically much improved. Unable to tolerate gabapentin and no longer needs alpha lipoic acid. Assessment & Plan (05/27/2024 3:55 PM ENGINEERING LAB TECHNICIAN): - Currently receives steroid injections in his [...] booster Assessment & Plan (05/25/2021 2:52 PM ENGINEERING LAB TECHNICIAN): Pfizer vaccine x3; booster dose mid-February 2021. He will send me precise dates so we can record accurately. Ulnar nerve compression, left 08/03/2020 Carpal tunnel syndrome, bilateral upper limbs Hair loss 07/12/2020 Overview (07/12/2020): ? Related to chemotherapy PLMD (periodic limb movement disorder) Assessment & Plan (07/02/2024 2:16 PM ENGINEERING LAB TECHNICIAN): The patient continues Requip 1 mg nightly Assessment & Plan (06/27/2023 1:37 PM ENGINEERING LAB TECHNICIAN): Patient continue with Requip 1 mg p.o. Q bedtime. The patient states that this is controlling his limbs well. I have sent in prescription in for 90 day supply with three refills to [facility]. Assessment & Plan (06/28/2022 2:22 PM ENGINEERING LAB TECHNICIAN): Patient continue with Requip 1 mg p.o. Q bedtime. Assessment & Plan (06/29/2021 1:44 PM ENGINEERING LAB TECHNICIAN): I will increase the patient's Requip to 1 mg. The patient was advised that he can take two of the 0.5 tablets until they completed. Assessment & Plan (05/19/2020 10:49 AM ENGINEERING LAB TECHNICIAN): The patient continues to benefit from Requip 0.5 mg at bedtime. He was requesting a refill. Erythrocytosis 07/12/2018 Leukocytosis 07/12/2018 History of colon polyps 06/10/2018 Overview (06/10/2018): Added automatically from request for surgery [id number] Family history of colon cancer 06/10/2018 Overview (06/10/2018): Added automatically from request for surgery [id number] Allergic rhinitis 01/24/2018 Primary osteoarthritis of left [...] control Assessment & Plan (05/27/2024 3:57 PM ENGINEERING LAB TECHNICIAN): - Last LDL 95 (01/2024), above goal [...] control Assessment & Plan (05/25/2021 2:51 PM ENGINEERING LAB TECHNICIAN): Continue statin, optimize glycemic control Assessment & Plan (11/15/2020 10:18 AM CDT): Continue statin, optimize glycemic control Assessment & Plan (06/04/2020 3:30 PM ENGINEERING LAB TECHNICIAN): Continue statin, optimize glycemic control Assessment & [...] Value Date HGBA1C 6.2 (A) 11/18/2024 Per [place] [employer], goal A1c is less 7% [...] PCP. Assessment & Plan (05/27/2024 3:54 PM ENGINEERING LAB TECHNICIAN): - Diabetes is complicated by neuropathy, hypertension, hyperlipidemia and obesity. Controlled. Lab Results Component Value Date HGBA1C 6.1 05/27/2024 Per [place] [employer], goal A1c is less 7% [...] that I am available via phone or Memor[facility] if they have any concerns for hypo/hyperglycemia, medication refills, etc. Assessment & Plan (02/02/2024 3:00 PM CDT): Glucoses overall within a good range of control and safety. Assessment & Plan (10/24/2023 2:14 PM CDT): - Diabetes is complicated by neuropathy, HTN, HLD and obesity. Controlled. Lab Results Component Value Date HGBA1C 6.2 10/24/2023 Per [place] [employer], goal A1c is less 7% [...] labs are due. Dr. Oliveira sent to [facility] in July. Encouraged patient to complete them [...] safety. Assessment & Plan (05/25/2021 2:50 PM ENGINEERING LAB TECHNICIAN): Suboptimal control, but tends to snack. Will [...] safety Assessment & Plan (06/04/2020 3:29 PM ENGINEERING LAB TECHNICIAN): Glucoses a little higher than target, but [...] osteoarthritis. Assessment & Plan (05/27/2024 3:57 PM ENGINEERING LAB TECHNICIAN): - Continue Mounjaro 10 mg weekly. Consider [...] management Assessment & Plan (05/27/2024 3:56 PM ENGINEERING LAB TECHNICIAN): - At goal today - Continue current [...] hypoglycemia. Assessment & Plan (06/04/2020 3:30 PM ENGINEERING LAB TECHNICIAN): Need to minimize risk of hypoglycemia Depression 05/07/2002 Overview (08/11/2016): DEPRESSIVE DISORDER NEC Obstructive sleep apnea syndrome 05/07/2002 Overview (08/11/2016): OBSTRUCTIVE SLEEP APNEA Assessment & Plan (07/02/2024 2:16 PM ENGINEERING LAB TECHNICIAN): The patient will continue CPAP at 16 cm water pressure. Denied need for supplies. DME adapt Assessment & Plan (06/27/2023 1:37 PM ENGINEERING LAB TECHNICIAN): The patient continues to wear his CPAP at 16 cm water pressure while sleeping. His DME is [facility] Assessment & Plan (06/28/2022 2:21 PM ENGINEERING LAB TECHNICIAN): I will increase the patient's CPAP 16 cm water pressure while sleeping due to the snoring. His DME is [facility] Assessment & Plan (06/29/2021 1:43 PM ENGINEERING LAB TECHNICIAN): I will increase the patient's CPAP 16 cm water pressure while sleeping. His DME is [facility]. Assessment & Plan (05/19/2020 10:49 AM ENGINEERING LAB TECHNICIAN): The patient continues to benefit from CPAP at 14 cm water pressure. His DME is [facility]. Anxiety state 05/07/2002 Overview (08/11/2016): ANXIETY STATE NOS Resolved Problems Problem Noted Date Diagnosed Date Resolved Date Need for immunization against influenza 02/15/2017 01/24/2018 Encounters Date Type Department Care Team Description 11/18/2024 3:00 PM CDT Office Visit [facility] Endocrinology Metabolism and Lipid [address] [facility] 13th [place] [address] [place] [address] Juliana Moreno PA Type 2 diabetes mellitus [...] with bursa removal (Added by TW Conv) GA ARTHRD ANT INTERBODY MIN DSC CRV BELOW C2 Cervical Vertebral Fusion - (Added by TW Conv) [place] NEUROPLASTY &/TRANSPOS MEDIAN NRV CARPAL TUNNE Neuroplasty [...] on file Legal Sex Male 11:53 PM ENGINEERING LAB TECHNICIAN Gender Identity Male 05/12/2020 11:21 AM ENGINEERING LAB TECHNICIAN Sexual Orientation Straight 05/12/2020 11 :21 AM ENGINEERING LAB TECHNICIAN Obstetrics History Last Filed Vital Signs Vital Sign Reading Time Taken Comments Blood Pressure 111/72 11/18/2024 2:51 PM CDT Pulse 83 11/18/2024 2:51 PM CDT Temperature 36.9 C (98.4 F) 11/18/2024 2:51 PM CDT Respiratory Rate 18 07/02/2024 1:45 PM ENGINEERING LAB TECHNICIAN Oxygen Saturation 97% 07/02/2024 1:45 PM ENGINEERING LAB TECHNICIAN Inhaled Oxygen Concentration - - Weight 98.9 [...] current use of insulin (HCC) POCT GLUCOSE [id number] Routine 11/18/2024 2: 53 PM CDT Type 2 diabetes mellitus with hyperglycemia, with long-term current use of insulin (HCC) DIABETIC EYE EXAM Routine 09/08/2021 ALBUMIN CREATININE RATIO, URINE Routine 03/21/2019 8:45 AM ENGINEERING LAB TECHNICIAN COLONOSCOPY 06/26/2018 8:12 AM ENGINEERING LAB TECHNICIAN from Last 3 Months or Most Recently [...] Albumin Creatinine Ratio, Urine (03/21/2019 8:45 AM ENGINEERING LAB TECHNICIAN) Creatinine, ur 98 20 - 320 mg/dL [facility] [place] Microalbumin, ur 0.5 See Note: mg/dL [facility] [place] Comment: Reference Range: Reference Range Not established Microalbumin/creat ratio 5 <30 mcg/mg creat [facility] [place] Comment: The ADA defines abnormalities in albumin excretion as follows: Category Result (mcg/mg creatinine) Normal <30 Microalbuminuria 30-299 Clinical albuminuria > OR = 300 The ADA recommends that at least two of three specimens collected within a 3-6 month period be abnormal before considering a patient to be within a diagnostic category. 03/21/2019 8:45 AM ENGINEERING LAB TECHNICIAN 03/21/2019 8:46 AM ENGINEERING LAB TECHNICIAN Narrative Resulting Agency Comment Performing Organization Information: Site ID: [id number] Name: [facility] Address: [address] [place] [address] Director: Aram Turpin D.O., MPH us Lianne Oliveira MD LAB URINE ORDERABLES Final Result [facility] [employer] [facility] [place], [place] * COLONOSCOPY (06/26/2018 8:12 AM ENGINEERING LAB TECHNICIAN) Anatomical Region Laterality Modality Other Narrative Procedure Note Brynn Perez MD - 06/26/2018 8:12 AM CST [facility] Patient Name: Bowen Quintanilla Procedure Date: 06/26/2018 8:12 AM Date of : 1955 Admit Type: Outpatient Age: 63 Gender: Male Attending MD: Brynn Perez M.D. Room: [facility] ENDOSCOPY ROOM 1 Note Status: Finalized [...] passed under direct vision.The Pediatric Colonoscope PCF-H190L [id number] was introduced through the anus and advanced [...] organs K64.8, Other hemorrhoids CPT copyright 2017 [place]. All rights reserved. The codes documented in this report are preliminary and upon laboratory clerk reviewmay be revised to meet current compliance requirements. Recognized by the [place] [employer] for promoting quality in endoscopy Brynn Perez MD ENDOSCOPY PROCEDURES Final Result from Last 3 Months or Most Recently Relevant to Health Maintenance Insurance MEDICARE [employer] MEDICARE AETNA SENIOR SUPPLEMENT MEDICARE AETNA SENIOR SUPPLEMENT Advance Directives For more information, please contact: [phone] * Full Code (Latest Code Status on File) Date Activated Date Inactivated Comments 06/26/2018 7:23 AM 06/26/2018 2:17 PM * Full Code Date Activated Date Inactivated Comments 06/26/2018 7:23 AM 06/26/2018 7:23 AM Care Teams Radiologic Therapist Relationship Specialty Start Date End Date Flavio Little MD PCP - General 08/09/07 Lianne Oliveira MD Referring Physician Endocrinology Diabetes & Metabolism 09/09/19 Ryann May NP Nurse Practitioner Nurse Practitioner 06/04/20 Maite Diamond MD [address] [place] [address] Medical Oncologist/Hematologis t Hematology 07/06/20 Lobito Burton MD PhD [address] [place] [address] Referring Physician Cardiology 08/24/20 Dimas Valle MD [address] [address] Consulting Physician Pulmonary Disease 08/24/21 [place] [address] [address] Referring Physician Physical Medicine and Rehabilitation 07/24/23 Juliana Moreno PA [address] [facility] ENDOCRINOLOGY, [address] [address] Physician Power Brake Operator Physician Power Brake Operator 08/11/24
--- OUTSIDE RECORDS SUMMARY | 2024-12-23 12:16 | XMS_ITS | Clinical Summary ---
Author Organization [facility] Address [address] [facility] [place] [address] Care Team Providers Care Government Operations Consultant Name Role Phone Flavio Little MD Primary Care Provider [phone] Aram Abdul MD Unavailable Lianne Oliveira MD Unavailable [phone] Dimas Valle MD Unavailable [phone] Tucker Cowan MD Unavailable Source Comments [facility],non-owned Affiliates and Associated Physician Practices is amultiple site organization consisting of ambulatory clinics and hospital sitesin [place] and [place]. This disclosure is being madepursuant to the Care Everywhere program and may not contain all information available regarding this patient. Last updated 18.[facility] Allergies No known active allergies Medications * [...] 20 MG capsule 11/10/19 Active HYDROcodone-acetam inophen ([place]) 10-325 MG tablet TAKE 1/2 TO 1 [...] Type Department Care Team Description 11/03/2024 Telephone [facility] Pain [facility] [id number] [place] [address] [address] [facility] [place] [address] Julieth Bautista Scheduling 10/23/2024 10:45 AM CDT Office Visit [facility] [address] [facility] [address] [facility] [place] [address] Tucker Cowan MD Myofascial pain (Primary Dx); [...] Sex Assigned at Male 07/12/2022 5:24 PM PICK UP DRIVER Legal Sex Male 1:29 PM PICK UP DRIVER Gender Identity Male 07/12/2022 5:24 PM PICK UP DRIVER Sexual Orientation Straight 07/12/2022 5: 24 PM PICK UP DRIVER Last Filed Vital Signs Vital Sign Reading [...] Description 01/22/2025 10:45 AM CDT Office Visit [facility] [address] [facility] [address] [place] [address]. [place] [address] [place] [address] [facility] [address] [place], [place] [id number] Health Maintenance Due Date Last Done Comments [...] this topic Medical Devices Implanted Type Area Classified Copy Control Clerk Device Identifier Shelf Expiration Date Model / Serial / Lot Shell Actb 58mm Hip Lmt Hl Clr Cd Pps G7 - [id number] Implanted:Qty: 1 on 08/09/2022 by German Mendes MD at [facility] Right: Hip [employer] 05/11/2032 [id number] / [id number] / [id number] Linr Actb G7 G 40mm Vivacit-E Hip Lum - [id number] Implanted:Qty: 1 on 08/09/2022 by German Mendes MD at [facility] Right: Hip [employer] 06/09/2025 [id number] / [id number] / [id number] Screw 6.5mm 30mm Slf-Tap Actb Cody Trlg - [id number] Implanted:Qty: 1 on 08/09/2022 by German Mendes MD at [facility] Right: Hip [employer] 05/16/2031 [id number] / [id number] / [id number] Stem Fem 13mm 145mm Hip 135d Std Ofst Implanted:Qty: 1 on 08/09/2022 by German Mendes MD at [facility] Right: Hip [employer] 04/06/2032 [id number] / / [id number] Slv Centering G7 -6mm Ofst Tpr Hip Ti Ty Implanted:Qty: 1 on 08/09/2022 by German Mendes MD at [facility] Right: Hip [employer] 03/03/2032 [id number] / / [id number] Head Fem 40mm Hip Blx D Biolox Optn G7 Implanted:Qty: 1 on 08/09/2022 by German Mendes MD at [facility] Right: Hip [employer] 03/11/2028 [id number] / / [id number] Explanted Type Area Classified Copy Control Clerk Device Identifier Shelf Expiration Date Model / Serial / Lot Pin Fx 22.9cm 4mm Stnm Thrd Ss 1 End Explanted:Qty: 1 on 08/09/2022 at [facility] Right: Hip [employer] [id number] / / Procedures Procedure Name Priority Date/Time Associated Diagnosis Comments COMPREHENSIVE METABOLIC PANEL STAT 07/12/2022 10:33 AM PICK UP DRIVER Pre-op evaluation HEMOGLOBIN A1C STAT 07/12/2022 10:33 AM PICK UP DRIVER Pre-op evaluation from Last 3 Months or Most Recently Relevant to Health Maintenance Results * (ABNORMAL) HEMOGLOBIN A1C (07/12/2022 10:33 AM PICK UP DRIVER) Hemoglobin A1c 7.2(H) <5.7 % 07/12/2022 10:54 AM PICK UP DRIVER [facility] Estimated Average Glucose 160 mg/dL 07/12/2022 10:54 AM PICK UP DRIVER [facility] Blood BLOOD SPECIMEN / Unknown Venipuncture / Unknown 07/12/2022 10:33 AM PICK UP DRIVER 07/12/2022 10:41 AM PICK UP DRIVER Narrative [facility] - 07/12/2022 10:54 AM PICK UP DRIVER HbA1c Interpretation: Normal: < 5.7% Pre-diabetes: 5.7-6.4% [...] exceeds 5% in the specimen. The [employer] [facility] [employer] assay for the measurement of HbA1c is a National Glycohemoglobin Standardization Program (NGSP) certified method. Sigrid Glover DEPOT AGENT-CLOTH SHRINKING MACHINE OPERATOR LAB - CHEMISTRY ORDE ARMANI Final Result [facility] [address] [place] [address] * (ABNORMAL) COMPREHENSIVE METABOLIC PANEL (07/12/2022 10:33 AM PICK UP DRIVER) Glucose 145(H) 70 - 105 mg/dL 07/12/2022 11:00 AM [facility] Sodium 137 136 - 145 mmol/L 07/12/2022 11:00 AM [facility] Potassium 4.3 3.5 - 5.1 mmol/L 07/12/2022 11:00 AM [facility] Chloride 104 98 - 107 mmol/L 07/12/2022 11:00 AM [facility] CO2 23 23 - 31 mmol/L 07/12/2022 11:00 AM [facility] Calcium 9.2 8.4 - 10.4 mg/dL 07/12/2022 11:00 AM [facility] Anion Gap 10 8 - 18 mmol/L 07/12/2022 11:00 AM [facility] BUN 21 8.4 - 25.7 mg/dL 07/12/2022 11:00 AM [facility] Creatinine 1.06 0.72 - 1.25 mg/dL 07/12/2022 11:00 AM [facility] Alkaline Phosphatase 84 40 - 150 U/L 07/12/2022 11:00 AM [facility] ALT 28 0 - 61 U/L 07/12/2022 11:00 AM [facility] AST 24 5 - 34 U/L 07/12/2022 11:00 AM PICK UP DRIVER [facility] Protein Total 7.3 6.4 - 8.3 gm/dL 07/12/2022 11:00 AM PICK UP DRIVER [facility] Albumin 4.2 3.2 - 4.6 gm/dL 07/12/2022 11:00 AM PICK UP DRIVER [facility] Bilirubin Total 0.3 0.2 - 1.2 mg/dL 07/12/2022 11:00 AM PICK UP DRIVER [facility] eGFR by CKD-EPI 76(L) >=90 mL/min/1.7 3 m2 07/12/2022 11:00 AM PICK UP DRIVER [facility] Blood BLOOD SPECIMEN / Unknown Venipuncture / Unknown 07/12/2022 10:33 AM PICK UP DRIVER 07/12/2022 10:41 AM PICK UP DRIVER Sigrid Glover DEPOT AGENT-CLOTH SHRINKING MACHINE OPERATOR LAB - CHEMISTRY ORDE ARMANI Final Result [facility] [address] [place] [address] from Last 3 Months or Most Recently Relevant to Health Maintenance Insurance MEDICARE AETNA Advance Directives * Full Code (Latest Code Status on File) Date Activated Date Inactivated Comments 08/09/2022 12:02 PM 08/10/2022 2:01 PM Care Teams Government Operations Consultant Relationship Specialty Start Date End Date Flavio Little MD [address] [place] [address] PCP - General Internal Medicine 07/17/17 [place] [address] [place] [address] Orthopedic Surgery 07/17/17 Lianne Oliveira MD [address] [address] Endocrinology 07/12/22 Dimas Valle MD [address] [facility] [address] [place] [address] Pulmonary Disease 07/12/22 [place] [address] [place] [address] Physical Medicine and Rehabilitation 10/23/22
--- OUTSIDE RECORDS SUMMARY | 2024-12-23 12:16 | XMS_ITS | Encounter Summary ---
Author Organization [facility] Address [address] [place] [address] Phone Care Team Providers Care Package Dyeing Machine Operator Name Role Phone Flavio Little MD Primary Care Provider [phone] Lianne Oliveira MD Unavailable [phone] Ryann May NP Unavailable [phone] Maite Diamond MD Unavailable [phone] Lobito Burton MD PhD Unavailable [phone] Dimas Valle MD Unavailable [phone] Tucker Bai MD Unavailable Juliana Moreno Unavailable [phone] Encounter Details Date Type Department Care Team [...] on file Legal Sex Male 11:53 PM COMPLIANCE PROJECT MANAGER Gender Identity Male 05/12/2020 11:21 AM COMPLIANCE PROJECT MANAGER Sexual Orientation Straight 05/12/2020 11 :21 AM COMPLIANCE PROJECT MANAGER documented as of this encounter Plan of Treatment Not on file documented as of this encounter Procedures Procedure Name Priority Date/Time Associated Diagnosis Comments SCAN - LABS 08/03/2017 documented in this encounter Results * SCAN - LABS (08/03/2017) us Provider Scanning Final Result documented in this encounter Visit Diagnoses Not on filedocumented in this encounter Care Teams Package Dyeing Machine Operator Relationship Specialty Start Date End Date Flavio Little MD PCP - General 08/09/07 Lianne Oliveira MD Referring Physician Endocrinology Diabetes & Metabolism 09/09/19 Ryann May NP Nurse Practitioner Nurse Practitioner 06/04/20 Maite Diamond MD [address] [place] [address] Medical Oncologist/Hematologis t Hematology 07/06/20 Lobito Burton MD PhD [address] [place] [address] Referring Physician Cardiology 08/24/20 Dimas Valle MD [address] [address] Consulting Physician Pulmonary Disease 08/24/21 [place] [address] [address] Referring Physician Physical Medicine and Rehabilitation 07/24/23 Juliana Moreno PA [address] [facility] ENDOCRINOLOGY, [address] [address] Physician Director Digital Advertising Physician Director Digital Advertising 08/11/24 documented as of this encounter
[2024-12-23 12:22] LABS: Hematocrit 52.5 % (37.0-46.0); Hemoglobin 16.8 g/dL (12.4-15.3); Mean Corpuscular HGB Conc 32.0 g/dL (32-36); Mean Corpuscular Hemoglobin 28.0 pg (27.0-31.0); Mean Corpuscular Volume 87.5 fL (78.0-102.0); Platelet Count Result 308 K/mm3 (150-420); Red Blood Count 6.00 M/mm3 (4.70-6.10); White Blood Count 16.0 K/mm3 (4.8-10.8)
[2024-12-23 12:54] LABS: Alanine Aminotransferase 38 U/L (6-50); Albumin Level 4.6 g/dL (3.5-5.1); Alkaline Phosphatase 89 U/L (38-126); Anion Gap 14 mmol/L (4-12); Aspartate Amino Transferase 40 U/L (17-59); Bilirubin,Total 0.6 mg/dL (0.2-1.3); Blood Urea Nitrogen 17 mg/dL (9-20); CRP 1.1 mg/dL (<1.0); Calcium 9.6 mg/dL (8.4-10.2); Carbon Dioxide 26 mmol/L (22-30); Chloride 98 mmol/L (98-107); Estimated Glomerular Filt Rate > 60; Glucose 125 mg/dL (65-110); Osmolality Calculated 288 mOsm/kg (285-295); Potassium 4.4 mmol/L (3.4-5.0); Sodium 138 mmol/L (137-145); Total Protein 7.8 g/dL (6.3-8.2)
== END 2024-12-23 12:02 | disposition home or self-care (01) ==
PROVIDERS: PCP Internal Medicine; Visit Provider Internal Medicine
DX: R05.9 Cough, unspecified (principal); I10 Essential (primary) hypertension; D72.829 Elevated white blood cell count, unspecified
CPT/HCPCS: 36415; 80053; 85027; 86140

== ENCOUNTER 2024-12-25 11:51 | Outpatient (CLI) | payer MEDICARE, SELFPAY ==
--- NOTE | ~2024-12-25 | CT_ITS ---
EXAMINATION: CTA chest PE protocol DATE: 12/25/2024 12:42 CDT INDICATION: Cough. Chest pressure. Dyspnea. TECHNIQUE: Computed tomographic angiography (CTA) of the chest was performed with intravenous contrast. The dose-length product was 633.54 mGy-cm. Maximum intensity projection 3D-reconstructions of the aorta and other arteries were constructed by the technologist on a separate workstation. COMPARISON: None. FINDINGS: Cervical hardware is noted. No enlarged mediastinal or hilar lymph nodes. Heart is not enlarged. Small hiatal hernia. Thoracic aorta is not aneurysmal but is partially calcified. No pulmonary embolism identified. Tracheobronchial tree is patent. 8mm calcified granuloma in the left lower lobe. Small groundglass opacities in the left lower lobe. Moderate-sized patchy opacities and groundglass opacities in the right lower lobe. Multilevel mild to moderate degenerative change scattered throughout the visualized spine. IMPRESSION: 1. Moderate-sized patchy opacities and groundglass opacities in the right lower lobe and small groundglass opacities in the left lower lobe. Differential is broad and includes but is not limited to an inflammatory/infectious process or hypersensitivity pneumonitis. Recommend follow-up to resolution. 2. Small hiatal hernia. 3. No pulmonary embolism identified. Reviewed, dictated and finalized at location A. IMPRESSION: 1. Moderate-sized patchy opacities and groundglass opacities in the right lower lobe and small groundglass opacities in the left lower lobe. Differential is b road and includes but is not limited to an inflammatory/infectious process or h ypersensitivity pneumonitis. Recommend follow-up to resolution. 2. Small hiatal hernia. 3. No pulmonary embolism identified.
--- OUTSIDE RECORDS SUMMARY | 2024-12-25 12:17 | XMS_ITS | Encounter Summary ---
Author Organization [facility] Address [address] [place] [address] Phone Care Team Providers Care Motor Tester Name Role Phone Flavio Little MD Primary Care Provider [phone] Lianne Oliveira MD Unavailable [phone] Ryann May NP Unavailable [phone] Maite Diamond MD Unavailable [phone] Lobito Burton MD PhD Unavailable [phone] Dimas Valle MD Unavailable [phone] Tucker Bai MD Unavailable Juliana Moreno Unavailable [phone] Encounter Details Date Type Department Care Team [...] on file Legal Sex Male 11:53 PM COIN BOX COLLECTOR Gender Identity Male 05/12/2020 11:21 AM COIN BOX COLLECTOR Sexual Orientation Straight 05/12/2020 11 :21 AM COIN BOX COLLECTOR documented as of this encounter Plan of Treatment Not on file documented as of this encounter Procedures Procedure Name Priority Date/Time Associated Diagnosis Comments SCAN - LABS 08/03/2017 documented in this encounter Results * SCAN - LABS (08/03/2017) us Provider Scanning Final Result documented in this encounter Visit Diagnoses Not on filedocumented in this encounter Care Teams Motor Tester Relationship Specialty Start Date End Date Flavio Little MD PCP - General 08/09/07 Lianne Oliveira MD Referring Physician Endocrinology Diabetes & Metabolism 09/09/19 Ryann May NP Nurse Practitioner Nurse Practitioner 06/04/20 Maite Diamond MD [address] [place] [address] Medical Oncologist/Hematologis t Hematology 07/06/20 Lobito Burton MD PhD [address] [place] [address] Referring Physician Cardiology 08/24/20 Dimas Valle MD [address] [address] Consulting Physician Pulmonary Disease 08/24/21 [place] [address] [address] Referring Physician Physical Medicine and Rehabilitation 07/24/23 Juliana Moreno PA [address] [facility] ENDOCR[facility], [address] [address] Physician Conduit Cleaner Physician Conduit Cleaner 08/11/24 documented as of this encounter
--- OUTSIDE RECORDS SUMMARY | 2024-12-25 12:17 | XMS_ITS | Clinical Summary ---
Author Organization [facility] Address [address] [facility] [place] [address] Care Team Providers Care Golf Coach Name Role Phone Flavio Little MD Primary Care Provider [phone] Aram Abdul MD Unavailable [phone] Lianne Oliveira MD Unavailable [phone] Dimas Valle MD Unavailable [phone] Tucker Cowan MD Unavailable Source Comments [facility],non-owned Affiliates and Associated Physician Practices is amultiple site organization consisting of ambulatory clinics and hospital sitesin [place], [place], [place] and [place]. This disclosure is being madepursuant to the Care Everywhere program and may not contain all information available regarding this patient. Last updated 18.[facility] Allergies No known active allergies Medications * [...] 20 MG capsule 11/10/19 Active HYDROcodone-acetam inophen (Ewen) 10-325 MG tablet TAKE 1/2 TO 1 [...] Type Department Care Team Description 11/03/2024 Telephone [facility] [address] [place] [address] [address] [facility] [place] [address] Julieth Bautista Scheduling 10/23/2024 10:45 AM CDT Office Visit [facility] [address] [facility] [address] [facility] [place] [address] Tucker Cowan MD Myofascial pain (Primary Dx); [...] Sex Assigned at Male 07/12/2022 5:24 PM CAR DRYER Legal Sex Male 1:29 PM CAR DRYER Gender Identity Male 07/12/2022 5:24 PM CAR DRYER Sexual Orientation Straight 07/12/2022 5: 24 PM CAR DRYER Last Filed Vital Signs Vital Sign Reading [...] Description 01/22/2025 10:45 AM CDT Office Visit [facility] [address] [facility] [address] [place] [address]. [place] [id number] [place] [address] [facility] [address] [place], [place] [id number] Health Maintenance Due Date Last Done Comments [...] this topic Medical Devices Implanted Type Area Creative Technologist Device Identifier Shelf Expiration Date Model / Serial / Lot Shell Actb 58mm Hip Lmt Hl Clr Cd Pps G7 - [id number] Implanted:Qty: 1 on 08/09/2022 by German Mendes MD at [facility] Right: Hip [employer] 05/11/2032 [id number] / [id number] / [id number] Linr Actb G7 G 40mm Vivacit-E Hip Lum - [id number] Implanted:Qty: 1 on 08/09/2022 by German Mendes MD at [facility] Right: Hip [employer] 06/09/2025 [id number] / [id number] / [id number] Screw 6.5mm 30mm Slf-Tap Actb Cody Trlg - [id number] Implanted:Qty: 1 on 08/09/2022 by German Mendes MD at [facility] Right: Hip [employer] 05/16/2031 [id number] / [id number] / [id number] Stem Fem 13mm 145mm Hip 135d Std Ofst Implanted:Qty: 1 on 08/09/2022 by German Mendes MD at [facility] Right: Hip [employer] 04/06/2032 [id number] / / [id number] Slv Centering G7 -6mm Ofst Tpr Hip Ti Ty Implanted:Qty: 1 on 08/09/2022 by German Mendes MD at [facility] Right: Hip [employer] 03/03/2032 [id number] / / [id number] Head Fem 40mm Hip Blx D Biolox Optn G7 Implanted:Qty: 1 on 08/09/2022 by German Mendes MD at [facility] Right: Hip [employer] 03/11/2028 [id number] / / [id number] Explanted Type Area Creative Technologist Device Identifier Shelf Expiration Date Model / Serial / Lot Pin Fx 22.9cm 4mm Stnm Thrd Ss 1 End Explanted:Qty: 1 on 08/09/2022 at [facility] Right: Hip [employer] [id number] / / Procedures Procedure Name Priority Date/Time Associated Diagnosis Comments COMPREHENSIVE METABOLIC PANEL STAT 07/12/2022 10:33 AM CAR DRYER Pre-op evaluation HEMOGLOBIN A1C STAT 07/12/2022 10:33 AM CAR DRYER Pre-op evaluation from Last 3 Months or Most Recently Relevant to Health Maintenance Results * (ABNORMAL) HEMOGLOBIN A1C (07/12/2022 10:33 AM CAR DRYER) Hemoglobin A1c 7.2(H) <5.7 % 07/12/2022 10:54 AM CAR DRYER [facility] Estimated Average Glucose 160 mg/dL 07/12/2022 10:54 AM CAR DRYER [facility] Blood BLOOD SPECIMEN / Unknown Venipuncture / Unknown 07/12/2022 10:33 AM CAR DRYER 07/12/2022 10:41 AM CAR DRYER Narrative [facility] - 07/12/2022 10:54 AM CAR DRYER HbA1c Interpretation: Normal: < 5.7% Pre-diabetes: 5.7-6.4% [...] exceeds 5% in the specimen. The Jules Air Export Coordinator assay for the measurement of HbA1c is a National Glycohemoglobin Standardization Program (NGSP) certified method. Sigrid Glover COLOR TELEVISION CONSOLE MONITOR-TERMINAL GAUGER SUPERVISOR LAB - CHEMISTRY ORDE ARMANI Final Result [facility] [address] [place] [address] * (ABNORMAL) COMPREHENSIVE METABOLIC PANEL (07/12/2022 10:33 AM CAR DRYER) Glucose 145(H) 70 - 105 mg/dL 07/12/2022 11:00 AM [facility] Sodium 137 136 - 145 mmol/L 07/12/2022 11:00 AM [facility] Potassium 4.3 3.5 - 5.1 mmol/L 07/12/2022 11:00 AM [facility] Chloride 104 98 - 107 mmol/L 07/12/2022 11:00 AM [facility] CO2 23 23 - 31 mmol/L 07/12/2022 11:00 AM [facility] Calcium 9.2 8.4 - 10.4 mg/dL 07/12/2022 11:00 AM [facility] Anion Gap 10 8 - 18 mmol/L 07/12/2022 11:00 AM [facility] BUN 21 8.4 - 25.7 mg/dL 07/12/2022 11:00 AM [facility] Creatinine 1.06 0.72 - 1.25 mg/dL 07/12/2022 11:00 AM [facility] Alkaline Phosphatase 84 40 - 150 U/L 07/12/2022 11:00 AM [facility] ALT 28 0 - 61 U/L 07/12/2022 11:00 AM [facility] AST 24 5 - 34 U/L 07/12/2022 11:00 AM CAR DRYER [facility] Protein Total 7.3 6.4 - 8.3 gm/dL 07/12/2022 11:00 AM CAR DRYER [facility] Albumin 4.2 3.2 - 4.6 gm/dL 07/12/2022 11:00 AM CAR DRYER [facility] Bilirubin Total 0.3 0.2 - 1.2 mg/dL 07/12/2022 11:00 AM CAR DRYER [facility] eGFR by CKD-EPI 76(L) >=90 mL/min/1.7 3 m2 07/12/2022 11:00 AM CAR DRYER [facility] Blood BLOOD SPECIMEN / Unknown Venipuncture / Unknown 07/12/2022 10:33 AM CAR DRYER 07/12/2022 10:41 AM CAR DRYER Sigrid Glover COLOR TELEVISION CONSOLE MONITOR-TERMINAL GAUGER SUPERVISOR LAB - CHEMISTRY ORDE ARMANI Final Result [facility] [address] [place] [address] from Last 3 Months or Most Recently Relevant to Health Maintenance Insurance MEDICARE AETNA Advance Directives * Full Code (Latest Code Status on File) Date Activated Date Inactivated Comments 08/09/2022 12:02 PM 08/10/2022 2:01 PM Care Teams Golf Coach Relationship Specialty Start Date End Date Flavio Little MD [address] [place] [address] PCP - General Internal Medicine 07/17/17 [place] [address] [place] [address] Orthopedic Surgery 07/17/17 Lianne Oliveira MD [address] [address] Endocrinology 07/12/22 Dimas Valle MD [address] [facility] [address] [place] [address] Pulmonary Disease 07/12/22 [place] [address] [place] [address] Physical Medicine and Rehabilitation 10/23/22
--- OUTSIDE RECORDS SUMMARY | 2024-12-25 12:17 | XMS_ITS | Clinical Summary ---
Author Organization [facility] Address [address] [facility] [address] Care Team Providers Care Erp Pm Name Role Phone Flavio Little MD Primary Care Provider [phone] Lianne Oliveira MD Unavailable Ryann May NP Unavailable [phone] Maite Diamond MD Unavailable Lobito Burton MD PhD Unavailable [phone] Dimas Valle MD Unavailable [phone] Tucker Bai MD Unavailable Juliana Moreno [...] hyperglycemia, with long-term current use of insulin ([facility]) Use to check blood sugar 4 times daily 1 each 1 05/24/19 Active alcohol swabs (Alcohol Wipes) pads, medicatedIndicati ons:Type 2 diabetes mellitus with hyperglycemia, with long-term current use of insulin ([facility]) Use alcohol wipes 4 times per day. 400 each 3 05/31/19 Active lancets miscIndications:T ype 2 diabetes mellitus with hyperglycemia, with long-term current use of insulin ([facility]) Use to check blood sugar 3 times daily 300 each 3 06/30/19 Active True Metrix Glucose Test Strip stripIndications: Type 2 diabetes mellitus with hyperglycemia, with long-term current use of insulin ([facility]),Uncontrolle d type 2 diabetes mellitus with hyperglycemia ([facility]) USE FOR TESTING THREE TIMES DAILY DIRECTED [...] hyperglycemia, with long-term current use of insulin ([facility]),Uncontrolle d type 2 diabetes mellitus with hyperglycemia (HCC) Take 1 tablet (10 mg total) by mouth daily 90 tablet 3 05/14/19 25 Active tirzepatide (Mounjaro) 10 mg/0.5 mL pen injector injectionIndicati ons:Type 2 diabetes mellitus with hyperglycemia, with long-term current use of insulin ([facility]) INJECT 0.5ML UNDER THE SKIN EVERY 7 DAYS. 6 mL 3 07/01/19 25 Active metFORMIN XR (GLUCOPHAGE XR) 500 mg 24 hr tabletIndications :Type 2 diabetes mellitus with hyperglycemia, with long-term current use of insulin ([facility]),Uncontrolle d type 2 diabetes mellitus with hyperglycemia ([facility]) TAKE 2 TABLETS (1000MG TOTAL) TWO TIMES A DAY 360 tablet 3 07/01/19 25 Active pen needle, diabetic 32 gauge x 5/32 needleIndications :Type 2 diabetes mellitus with hyperglycemia, with long-term current use of insulin ([facility]) Use for 4 shots daily 400 each 3 07/01/19 25 Active rOPINIRole (REQUIP) 1 mg tabletIndications :PLMD (periodic limb movement disorder) Take 1 tablet (1 mg total) by mouth nightly 90 tablet 3 07/02/19 25 Active insulin aspart (NovoLOG) 100 unit/mL (3 mL) pen for injectionIndicati ons:Type 2 diabetes mellitus with hyperglycemia, with long-term current use of insulin ([facility]),Uncontrolle d type 2 diabetes mellitus with hyperglycemia (HCC) Inject 8 units under the skin with meals, 2 units with high starches or snacks, plus 1 unit for every 25 points >150. Max TDD 45 units daily 08/13/19 25 Active insulin glargine 100 unit/mL (3 mL) pen for injectionIndicati ons:Type 2 diabetes mellitus with hyperglycemia, with long-term current use of insulin ([facility]) Inject 60 units under the skin nightly 08/13/19 25 Active multivitamin tablet With 400 international units vitamin D Daily Active Active Problems Problem Noted Date Diagnosed Date Diabetic peripheral neuropathy 01/11/2022 Assessment & Plan (08/16/2024 7:20 PM CDT): Clinically much improved. Unable to tolerate gabapentin and no longer needs alpha lipoic acid. Assessment & Plan (05/27/2024 3:55 PM ORACLE FUSION CONSULTANT): - Currently receives steroid injections in his [...] booster Assessment & Plan (05/25/2021 2:52 PM ORACLE FUSION CONSULTANT): Pfizer vaccine x3; booster dose mid-February 2021. He will send me precise dates so we can record accurately. Ulnar nerve compression, left 08/03/2020 Carpal tunnel syndrome, bilateral upper limbs Hair loss 07/12/2020 Overview (07/12/2020): ? Related to chemotherapy PLMD (periodic limb movement disorder) Assessment & Plan (07/02/2024 2:16 PM ORACLE FUSION CONSULTANT): The patient continues Requip 1 mg nightly Assessment & Plan (06/27/2023 1:37 PM ORACLE FUSION CONSULTANT): Patient continue with Requip 1 mg p.o. Q bedtime. The patient states that this is controlling his limbs well. I have sent in prescription in for 90 day supply with three refills to [facility]. Assessment & Plan (06/28/2022 2:22 PM ORACLE FUSION CONSULTANT): Patient continue with Requip 1 mg p.o. Q bedtime. Assessment & Plan (06/29/2021 1:44 PM ORACLE FUSION CONSULTANT): I will increase the patient's Requip to 1 mg. The patient was advised that he can take two of the 0.5 tablets until they completed. Assessment & Plan (05/19/2020 10:49 AM ORACLE FUSION CONSULTANT): The patient continues to benefit from Requip 0.5 mg at bedtime. He was requesting a refill. Erythrocytosis 07/12/2018 Leukocytosis 07/12/2018 History of colon polyps 06/10/2018 Overview (06/10/2018): Added automatically from request for surgery [id number] Family history of colon cancer 06/10/2018 Overview (06/10/2018): Added automatically from request for surgery [id number] Allergic rhinitis 01/24/2018 Primary osteoarthritis of left [...] control Assessment & Plan (05/27/2024 3:57 PM ORACLE FUSION CONSULTANT): - Last LDL 95 (01/2024), above goal [...] control Assessment & Plan (05/25/2021 2:51 PM ORACLE FUSION CONSULTANT): Continue statin, optimize glycemic control Assessment & Plan (11/15/2020 10:18 AM CDT): Continue statin, optimize glycemic control Assessment & Plan (06/04/2020 3:30 PM ORACLE FUSION CONSULTANT): Continue statin, optimize glycemic control Assessment & [...] Value Date HGBA1C 6.2 (A) 11/18/2024 Per [place] [employer], goal A1c is less 7% [...] PCP. Assessment & Plan (05/27/2024 3:54 PM ORACLE FUSION CONSULTANT): - Diabetes is complicated by neuropathy, hypertension, hyperlipidemia and obesity. Controlled. Lab Results Component Value Date HGBA1C 6.1 05/27/2024 Per [employer], goal A1c is less 7% [...] that I am available via phone or woojuhart if they have any concerns for hypo/hyperglycemia, medication refills, etc. Assessment & Plan (02/02/2024 3:00 PM CDT): Glucoses overall within a good range of control and safety. Assessment & Plan (10/24/2023 2:14 PM CDT): - Diabetes is complicated by neuropathy, HTN, HLD and obesity. Controlled. Lab Results Component Value Date HGBA1C 6.2 10/24/2023 Per [employer], goal A1c is less 7% [...] labs are due. Dr. Oliveira sent to [facility] in July. Encouraged patient to complete them [...] safety. Assessment & Plan (05/25/2021 2:50 PM ORACLE FUSION CONSULTANT): Suboptimal control, but tends to snack. Will [...] safety Assessment & Plan (06/04/2020 3:29 PM ORACLE FUSION CONSULTANT): Glucoses a little higher than target, but [...] osteoarthritis. Assessment & Plan (05/27/2024 3:57 PM ORACLE FUSION CONSULTANT): - Continue Mounjaro 10 mg weekly. Consider [...] management Assessment & Plan (05/27/2024 3:56 PM ORACLE FUSION CONSULTANT): - At goal today - Continue current [...] hypoglycemia. Assessment & Plan (06/04/2020 3:30 PM ORACLE FUSION CONSULTANT): Need to minimize risk of hypoglycemia Depression 05/07/2002 Overview (08/11/2016): DEPRESSIVE DISORDER NEC Obstructive sleep apnea syndrome 05/07/2002 Overview (08/11/2016): OBSTRUCTIVE SLEEP APNEA Assessment & Plan (07/02/2024 2:16 PM ORACLE FUSION CONSULTANT): The patient will continue CPAP at 16 cm water pressure. Denied need for supplies. DME adapt Assessment & Plan (06/27/2023 1:37 PM ORACLE FUSION CONSULTANT): The patient continues to wear his CPAP at 16 cm water pressure while sleeping. His DME is [facility] Assessment & Plan (06/28/2022 2:21 PM ORACLE FUSION CONSULTANT): I will increase the patient's CPAP 16 cm water pressure while sleeping due to the snoring. His DME is [facility] Assessment & Plan (06/29/2021 1:43 PM ORACLE FUSION CONSULTANT): I will increase the patient's CPAP 16 cm water pressure while sleeping. His DME is [facility]. Assessment & Plan (05/19/2020 10:49 AM ORACLE FUSION CONSULTANT): The patient continues to benefit from CPAP at 14 cm water pressure. His DME is [facility]. Anxiety state 05/07/2002 Overview (08/11/2016): ANXIETY STATE NOS Resolved Problems Problem Noted Date Diagnosed Date Resolved Date Need for immunization against influenza 02/15/2017 01/24/2018 Encounters Date Type Department Care Team Description 11/18/2024 3:00 PM CDT Office Visit [facility] Medicine Endocrinology Metabolism and Lipid [address] [facility] 13th [place] [address] [place] [address] Juliana Moreno PA Type 2 diabetes mellitus [...] with bursa removal (Added by TW Conv) [place] ARTHRD ANT INTERBODY MIN DSC CRV BELOW C2 Cervical Vertebral Fusion - (Added by TW Conv) [place] NEUROPLASTY &/TRANSPOS MEDIAN NRV CARPAL TUNNE Neuroplasty Decompression Median Nerve At Carpal Tunnel - L 12/16; R 01/16 (Added by TW Conv) POLYPECTOMY COLONOSCOPY 08/22/2007 patient indicates last colon 5 years ago [place]? ELBOW SURGERY 08/05/2020 - 09/03/2020 Left HIP SURGERY 08/05/2022 - 09/03/2022 Right hip replacement Medical History Medical History Date Comments Hx Other Medical -GI Hx Other Medical -ORTHOPEDIST Gastroesophageal reflux disease [...] on file Legal Sex Male 11:53 PM ORACLE FUSION CONSULTANT Gender Identity Male 05/12/2020 11:21 AM ORACLE FUSION CONSULTANT Sexual Orientation Straight 05/12/2020 11 :21 AM ORACLE FUSION CONSULTANT Obstetrics History Last Filed Vital Signs Vital Sign Reading Time Taken Comments Blood Pressure 111/72 11/18/2024 2:51 PM CDT Pulse 83 11/18/2024 2:51 PM CDT Temperature 36.9 C (98.4 F) 11/18/2024 2:51 PM CDT Respiratory Rate 18 07/02/2024 1:45 PM ORACLE FUSION CONSULTANT Oxygen Saturation 97% 07/02/2024 1:45 PM ORACLE FUSION CONSULTANT Inhaled Oxygen Concentration - - Weight 98.9 [...] current use of insulin (HCC) POCT GLUCOSE [id number] Routine 11/18/2024 2: 53 PM CDT Type 2 diabetes mellitus with hyperglycemia, with long-term current use of insulin (HCC) DIABETIC EYE EXAM Routine 09/08/2021 ALBUMIN CREATININE RATIO, URINE Routine 03/21/2019 8:45 AM ORACLE FUSION CONSULTANT COLONOSCOPY 06/26/2018 8:12 AM ORACLE FUSION CONSULTANT from Last 3 Months or Most Recently [...] Albumin Creatinine Ratio, Urine (03/21/2019 8:45 AM ORACLE FUSION CONSULTANT) Creatinine, ur 98 20 - 320 mg/dL [facility] [place] Microalbumin, ur 0.5 See Note: mg/dL [facility] [place] Comment: Reference Range: Reference Range Not established Microalbumin/creat ratio 5 <30 mcg/mg creat [facility] [place] Comment: The ADA defines abnormalities in albumin excretion as follows: Category Result (mcg/mg creatinine) Normal <30 Microalbuminuria 30-299 Clinical albuminuria > OR = 300 The ADA recommends that at least two of three specimens collected within a 3-6 month period be abnormal before considering a patient to be within a diagnostic category. 03/21/2019 8:45 AM ORACLE FUSION CONSULTANT 03/21/2019 8:46 AM ORACLE FUSION CONSULTANT Narrative Resulting Agency Comment Performing Organization Information: Site ID: [place] Name: [facility] Address: [address] [address] Director: Aram Turpin D.O., MPH us Lianne Oliveira MD LAB URINE ORDERABLES Final Result [facility] [place] [place] * COLONOSCOPY (06/26/2018 8:12 AM ORACLE FUSION CONSULTANT) Anatomical Region Laterality Modality Other Narrative Procedure Note Brynn Perez MD - 06/26/2018 8:12 AM CST [facility] Patient Name: Bowen Quintanilla Procedure Date: 06/26/2018 8:12 AM Date of : 1955 Admit Type: Outpatient Age: 63 Gender: Male Attending MD: Brynn Perez M.D. Room: [facility] ENDOSCOPY ROOM 1 Note Status: [...] passed under direct vision.The Pediatric Colonoscope PCF-H190L [id number] was introduced through the anus and advanced [...] organs K64.8, Other hemorrhoids CPT copyright 2017 [employer]. All rights reserved. The codes documented in this report are preliminary and upon asian studies professor reviewmay be revised to meet current compliance requirements. Recognized by the [employer] for promoting quality in endoscopy Brynn Perez MD ENDOSCOPY PROCEDURES Final Result from Last 3 Months or Most Recently Relevant to Health Maintenance Insurance MEDICARE [employer] MEDICARE AETNA SENIOR SUPPLEMENT MEDICARE AETNA SENIOR SUPPLEMENT Advance Directives For more information, please contact: [phone] * Full Code (Latest Code Status on File) Date Activated Date Inactivated Comments 06/26/2018 7:23 AM 06/26/2018 2:17 PM * Full Code Date Activated Date Inactivated Comments 06/26/2018 7:23 AM 06/26/2018 7:23 AM Care Teams Erp Pm Relationship Specialty Start Date End Date Flavio Little MD PCP - General 08/09/07 Lianne Oliveira MD Referring Physician Endocrinology Diabetes & Metabolism 09/09/19 Ryann May NP Nurse Practitioner Nurse Practitioner 06/04/20 Maite Diamond MD [address] [place] [address] Medical Oncologist/Hematologis t Hematology 07/06/20 Lobito Burton MD PhD [address] [place] [address] Referring Physician Cardiology 08/24/20 Dimsa Valle MD [address] [address] Consulting Physician Pulmonary Disease 08/24/21 [place] [address] [id number] Referring Physician Physical Medicine and Rehabilitation 07/24/23 Juliana Moreno PA [address] [facility] ENDOCRINOLOGY, [address] [address] Physician Contract Design Agent Physician Contract Design Agent 08/11/24
== END 2024-12-25 11:52 | disposition home or self-care (01) ==
PROVIDERS: PCP Internal Medicine; Visit Provider Internal Medicine
DX: R06.00 Dyspnea, unspecified (principal); R05.9 Cough, unspecified; R91.8 Other nonspecific abnormal finding of lung field; K44.9 Diaphragmatic hernia without obstruction or gangrene
CPT/HCPCS: 71275; Q9967

== ENCOUNTER 2024-12-26 13:09 | Outpatient (CLI) | payer MEDICARE, SELFPAY ==
--- OUTSIDE RECORDS SUMMARY | 2024-12-26 13:12 | XMS_ITS | Encounter Summary ---
Author Organization [facility] Address [address] [place] [address] Care Team Providers Care Utilization Review Rn Name Role Phone Flavio Little MD Primary Care Provider [phone] Encounter Details Date Type Department Care Team (Late st Contact Info) Description 12/26/2024 Transcribe Orders [facility] Pre Access Team [address] [place] [address] Flavio Little MD [address] [place] [address] Social History Tobacco Use Types Packs/Day Years Used Date Smoking Tobacco: Never Assessed Sex and Gender Information Value Date Recorded Sex Assigned at Male 12/11/2024 2:00 PM CDT Legal Sex Male 5:09 PM CDT Gender Identity Not on file Sexual Orientation Not on file documented as of this encounter Plan of Treatment Not on file documented as of this encounter Visit Diagnoses Not on filedocumented in this encounter Care Teams Utilization Review Rn Relationship Specialty Start Date End Date Flavio Little MD [address] [place] [address] PCP - General INTERNAL MEDICINE 07/30/20 documented as of this encounter
--- OUTSIDE RECORDS SUMMARY | 2024-12-26 13:12 | XMS_ITS | Clinical Summary ---
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 [address] [place] [address] Flavio Little MD 12/11/2024 2:07 PM CDT - 12/11/2024 11:59 PM CDT Hospital Encounter [facility] [address] [place] [address] Flavio Little MD Discharge Disposition: Home or Self Care (Routine Discharge) 12/11/2024 Travel from Last 3 Months Social History Tobacco [...] Wellness Visit 2018 Pneumococcal Vaccine: 50+ Years (3 of 3 - PCV20 or PCV21) 04/17/2022 04/17/2017, 05/02/2011 COVID-19 Vaccine (3 - 2023-2 5 season) [...] on patient's age to complete this topic Procedures Procedure Name Priority Date/Time Associated Diagnosis Comments XR CHEST PA+LAT Routine 12/11/2024 2:14 PM CDT Dyspnea Cough from Last 3 Months Results * XR CHEST PA+LAT (12/11/2024 2:14 PM CDT) Anatomical Region Laterality Modality Chest Radiographic Ghislaine ging 12/11/2024 2:31 PM CDT Impressions 12/11/2024 2:32 PM CDT IMPRESSION: 1. Atelectasis in the lung bases. 2. Hyperinflation of the lungs. Referred By: Interpreted By: Juan Saini MD, 12/11/2024 2:31 PM Narrative 12/11/2024 2:32 PM [address]T [address] [place] [address] EXAMINATION: XR CHEST PA+LAT, 12/11/2024 2:31 PM TECHNIQUE: Upright PA and lateral radiographs of the chest HISTORY: Chest tightness, dyspnea and cough for a few days. COMPARISON: None available FINDINGS: Heart size is normal. Atelectasis in the right lung base. Possible additional atelectasis the left lung base. Hyperinflation of the lungs. No pleural effusion. No pneumothorax. The thoracic vertebral body heights are preserved. Procedure Note Juan Saini MD - 12/11/[address] [place] [address] EXAMINATION: XR CHEST PA+LAT, 12/11/2024 2:31 PM TECHNIQUE: Upright PA and lateral radiographs of the chest HISTORY: Chest tightness, dyspnea and cough for a few days. COMPARISON: None available FINDINGS: Heart size is normal. Atelectasis in the right lung base.Possible additional atelectasis the left lung base. Hyperinflation of thelungs. No pleural effusion. No pneumothorax. The thoracic vertebralbody heights are preserved. IMPRESSION: 1. Atelectasis in the lung bases. 2. Hyperinflation of the lungs. Referred By: Interpreted By: Juan Saini MD, 12/11/2024 2:31 PM Flavio Little MD GENERAL IMAGING Final Result from Last 3 Months Insurance MEDICARE AETNA Care Teams Sheet Metal Pattern Cutter Relationship Specialty Start Date End Date Flavio Little MD [address] [place] [address] PCP - General INTERNAL MEDICINE 07/30/20
--- OUTSIDE RECORDS SUMMARY | 2024-12-26 13:12 | XMS_ITS | Clinical Summary ---
Author Organization [facility] Address [address] [facility] [place] [address] Care Team Providers Care Licensed Audiologist Name Role Phone Flavio Little MD Primary Care Provider [phone] Aram Abdul MD Unavailable Lianne Oliveira MD Unavailable [phone] Dimas Valle MD Unavailable [phone] Tucker Cowan MD Unavailable [phone] [facility],non-owned Affiliates and Associated Physician Practices is amultiple site organization consisting of ambulatory clinics and hospital sitesin [place], [place], [place] and [place]. This disclosure is being madepursuant to the Care Everywhere program and may not contain all information available regarding this patient. Last updated 18.[facility] Allergies No known active allergies Medications [...] 20 MG capsule 11/10/19 Active HYDROcodone-acetam inophen ([place]) 10-325 MG tablet TAKE 1/2 TO 1 [...] Type Department Care Team Description 11/03/[address] [facility] Pain [facility] [address] [place] [address] [address] [facility] [place] [address] Julieth Bautista Scheduling 10/23/2024 10:45 AM CDT Office Visit [facility] [address] [facility] [address] [facility] [place] [address] Tucker Cowan MD Myofascial pain (Primary Dx); [...] Sex Assigned at Male 07/12/2022 5:24 PM SUPERCALENDER OPERATOR HELPER Legal Sex Male 1:29 PM SUPERCALENDER OPERATOR HELPER Gender Identity Male 07/12/2022 5:24 PM SUPERCALENDER OPERATOR HELPER Sexual Orientation Straight 07/12/2022 5: 24 PM SUPERCALENDER OPERATOR HELPER Last Filed Vital Signs Vital Sign [...] Description 01/22/2025 10:45 AM CDT Office Visit [facility] [address] [facility] [address] [place] [address]. [place] [address] [place] [address] [facility] [address] [place], [place] [id number] Health Maintenance Due Date Last Done Comments [...] this topic Medical Devices Implanted Type Area Plastic Molder Device Identifier Shelf Expiration Date Model / Serial / Lot Shell Actb 58mm Hip Lmt Hl Clr Cd Pps G7 - [id number] Implanted:Qty: 1 on 08/09/2022 by German Mendes MD at [facility] Right: Hip [employer] 05/11/2032 [id number] / [id number] / [id number] Linr Actb G7 G 40mm Vivacit-E Hip Lum - [id number] Implanted:Qty: 1 on 08/09/2022 by German Mendes MD at [facility] Right: Hip [employer] 06/09/2025 [id number] / [id number] / [id number] Screw 6.5mm 30mm Slf-Tap Actb Cody Trlg - [id number] Implanted:Qty: 1 on 08/09/2022 by German Mendes MD at [facility] Right: Hip [employer] 05/16/2031 [id number] / [id number] / [id number] Stem Fem 13mm 145mm Hip 135d Std Ofst Implanted:Qty: 1 on 08/09/2022 by German Mendes MD at [facility] Right: Hip [employer] 04/06/2032 [id number] / / [id number] Slv Centering G7 -6mm Ofst Tpr Hip Ti Ty Implanted:Qty: 1 on 08/09/2022 by German Mendes MD at [facility] Right: Hip [employer] 03/03/2032 [id number] / / [id number] Head Fem 40mm Hip Blx D Biolox Optn G7 Implanted:Qty: 1 on 08/09/2022 by German Mendes MD at [facility] Right: Hip [employer] 03/11/2028 [id number] / / [id number] Explanted Type Area Plastic Molder Device Identifier Shelf Expiration Date Model / Serial / Lot Pin Fx 22.9cm 4mm Stnm Thrd Ss 1 End Explanted:Qty: 1 on 08/09/2022 at [facility] Right: Hip [employer] [id number] / / Procedures Procedure Name Priority Date/Time Associated Diagnosis Comments COMPREHENSIVE METABOLIC PANEL STAT 07/12/2022 10:33 AM SUPERCALENDER OPERATOR HELPER Pre-op evaluation HEMOGLOBIN A1C STAT 07/12/2022 10:33 AM SUPERCALENDER OPERATOR HELPER Pre-op evaluation from Last 3 Months or Most Recently Relevant to Health Maintenance Results * (ABNORMAL) HEMOGLOBIN A1C (07/12/2022 10:33 AM SUPERCALENDER OPERATOR HELPER) Hemoglobin A1c 7.2(H) <5.7 % 07/12/2022 10:54 AM SUPERCALENDER OPERATOR HELPER [facility] Estimated Average Glucose 160 mg/dL 07/12/2022 10:54 AM SUPERCALENDER OPERATOR HELPER [facility] Blood BLOOD SPECIMEN / Unknown Venipuncture / Unknown 07/12/2022 10:33 AM SUPERCALENDER OPERATOR HELPER 07/12/2022 10:41 AM SUPERCALENDER OPERATOR HELPER Narrative [facility] - 07/12/2022 10:54 AM SUPERCALENDER OPERATOR HELPER HbA1c Interpretation: Normal: < 5.7% Pre-diabetes: [...] exceeds 5% in the specimen. The J[employer] R[employer] Maker assay for the measurement of HbA1c is a National Glycohemoglobin Standardization Program (NGSP) certified method. Sigrid Glover RESIDENTIAL TREATMENT SPECIALIST-SHOP SERVICE TECHNICIAN LAB - CHEMISTRY ORDE ARMANI Final Result [facility] [address] [place] [address] * (ABNORMAL) COMPREHENSIVE METABOLIC PANEL (07/12/2022 10:33 AM SUPERCALENDER OPERATOR HELPER) Glucose 145(H) 70 - 105 mg/dL 07/12/2022 11:00 AM [facility] Sodium 137 136 - 145 mmol/L 07/12/2022 11:00 AM [facility] Potassium 4.3 3.5 - 5.1 mmol/L 07/12/2022 11:00 AM [facility] Chloride 104 98 - 107 mmol/L 07/12/2022 11:00 AM [facility] CO2 23 23 - 31 mmol/L 07/12/2022 11:00 AM [facility] Calcium 9.2 8.4 - 10.4 mg/dL 07/12/2022 11:00 AM [facility] Anion Gap 10 8 - 18 mmol/L 07/12/2022 11:00 AM [facility] BUN 21 8.4 - 25.7 mg/dL 07/12/2022 11:00 AM [facility] Creatinine 1.06 0.72 - 1.25 mg/dL 07/12/2022 11:00 AM [facility] Alkaline Phosphatase 84 40 - 150 U/L 07/12/2022 11:00 AM [facility] ALT 28 0 - 61 U/L 07/12/2022 11:00 AM [facility] AST 24 5 - 34 U/L 07/12/2022 11:00 AM SUPERCALENDER OPERATOR HELPER [facility] Protein Total 7.3 6.4 - 8.3 gm/dL 07/12/2022 11:00 AM SUPERCALENDER OPERATOR HELPER [facility] Albumin 4.2 3.2 - 4.6 gm/dL 07/12/2022 11:00 AM SUPERCALENDER OPERATOR HELPER [facility] Bilirubin Total 0.3 0.2 - 1.2 mg/dL 07/12/2022 11:00 AM SUPERCALENDER OPERATOR HELPER [facility] eGFR by CKD-EPI 76(L) >=90 mL/min/1.7 3 m2 07/12/2022 11:00 AM SUPERCALENDER OPERATOR HELPER [facility] Blood BLOOD SPECIMEN / Unknown Venipuncture / Unknown 07/12/2022 10:33 AM SUPERCALENDER OPERATOR HELPER 07/12/2022 10:41 AM SUPERCALENDER OPERATOR HELPER Sigrid Glover RESIDENTIAL TREATMENT SPECIALIST-SHOP SERVICE TECHNICIAN LAB - CHEMISTRY ORDE ARMANI Final Result [facility] [address] [place] [address] from Last 3 Months or Most Recently Relevant to Health Maintenance Insurance MEDICARE AETNA Advance Directives * Full Code (Latest Code Status on File) Date Activated Date Inactivated Comments 08/09/2022 12:02 PM 08/10/2022 2:01 PM Care Teams Licensed Audiologist Relationship Specialty Start Date End Date Flavio Little MD [address] [place] [address] PCP - General Internal Medicine 07/17/17 [place] [address] [place] [address] Orthopedic Surgery 07/17/17 Lianne Oliveira MD [address] [address] Endocrinology 07/12/22 Dimas Valle MD [address] [facility] [address] [address] [place] [address] Pulmonary Disease 07/12/22 [place] [address] [place] [address] Physical Medicine and Rehabilitation 10/23/22
--- OUTSIDE RECORDS SUMMARY | 2024-12-26 13:12 | XMS_ITS | Encounter Summary ---
Author Organization [facility] Address [address] [place] [address] Phone Care Team Providers Care Material Coordinator Name Role Phone Flavio Little MD Primary Care Provider [phone] Lianne Oliveira MD Unavailable [phone] Ryann May NP Unavailable [phone] Maite Diamond MD Unavailable [phone] Lobito Burton MD PhD Unavailable [phone] Dimas Valle MD Unavailable [phone] Tucker Bai MD Unavailable [phone] Juliana Moreno Unavailable [phone] Encounter Details Date Type Department Care Team [...] on file Legal Sex Male 11:53 PM ASSORTER Gender Identity Male 05/12/2020 11:21 AM ASSORTER Sexual Orientation Straight 05/12/2020 11 :21 AM ASSORTER documented as of this encounter Plan of Treatment Not on file documented as of this encounter Procedures Procedure Name Priority Date/Time Associated Diagnosis Comments SCAN - LABS 08/03/2017 documented in this encounter Results * SCAN - LABS (08/03/2017) us Provider Scanning Final Result documented in this encounter Visit Diagnoses Not on filedocumented in this encounter Care Teams Material Coordinator Relationship Specialty Start Date End Date Flavio Little MD PCP - General 08/09/07 Lianne Oliveira MD Referring Physician Endocrinology Diabetes & Metabolism 09/09/19 Ryann May NP Nurse Practitioner Nurse Practitioner 06/04/20 Maite iDamond MD [address] [place] [address] Medical Oncologist/Hematologis t Hematology 07/06/20 Lobito Burton MD PhD [address] [place] [address] Referring Physician Cardiology 08/24/20 Dimas Valle MD [address] [address] Consulting Physician Pulmonary Disease 08/24/21 [place] [address] [address] Referring Physician Physical Medicine and Rehabilitation 07/24/23 Juliana Moreno PA [address] [facility], [address] [address] Physician Accountant Certified Public Physician Accountant Certified Public 08/11/24 documented as of this encounter
--- OUTSIDE RECORDS SUMMARY | 2024-12-26 13:12 | XMS_ITS | Encounter Summary ---
Author Organization [facility] Address [address] [place] [address] Care Team Providers Care Beach Attendant Name Role Phone Flavio Little MD Primary Care Provider [phone] Reason for Referral * Procedure (Routine) - New Request Specialty Diagnoses / Procedures Referred By Contac t Referred To Contact Diagnoses Dyspnea Cough Chest pressure Procedures Complete PFT (pre/post [place], Lung Vol, Diff Capacity) (68374, 11670, 17716, 54010) [facility] [address] [place] [address] Phone: tel: Referral ID Status Reason Start Date Expiration Date V isits Requested Visits Authorized [id number] New Request 12/25/2024 01/25/2026 1 1 Encounter Details Date Type Department Care Team (Late st Contact Info) Description 12/25/2024 Orders Only [facility] [address] [place] [address] Flavio Little MD [facility] [place] [address] Social History Tobacco Use Types Packs/Day Years Used Date Smoking Tobacco: Never Assessed Sex and Gender Information Value Date Recorded Sex Assigned at Male 12/11/2024 2:00 PM CDT Legal Sex Male 5:09 PM CDT Gender Identity Not on file Sexual Orientation Not on file documented as of this encounter Plan of Treatment Scheduled Orders Name Type Priority Associated Diagnoses Orde r Schedule Complete PFT (pre/post [place], Lung Vol, Diff Capacity) (68521, 18282, 04053, 29980) PFT Routine Dyspnea Cough Chest pressure Expected: 12/25/2024 (Approximate), Expires: 12/25/2025 documented as of this encounter Visit Diagnoses Diagnosis Dyspnea- Primary Other dyspnea and respiratory abnormality Cough Chest pressure Other chest pain documented in this encounter Care Teams Beach Attendant Relationship Specialty Start Date End Date Flavio Little MD [address] [place] [address] PCP - General INTERNAL MEDICINE 07/30/20 documented as of this encounter
--- OUTSIDE RECORDS SUMMARY | 2024-12-26 13:12 | XMS_ITS | Clinical Summary ---
Author Organization [facility] Address [address] [place] [address] Care Team Providers Care Whizzer Hand Name Role Phone Flavio Little MD Primary Care Provider [phone] Lianne Olvieira MD Unavailable Ryann May NP Unavailable Maite Diamond MD Unavailable [phone] Lobito Burton MD PhD Unavailable Dimas Valle MD Unavailable [phone] Tucker Bai MD Unavailable [phone] Juliana Moreno Unavailable [phone] Allergies Active [...] with long-term current use of insulin ([facility]) Use to check blood sugar 4 times daily 1 each 1 05/24/19 Active alcohol swabs (Alcohol Wipes) pads, medicatedIndicati ons:Type 2 diabetes mellitus with hyperglycemia, with long-term current use of insulin ([facility]) Use alcohol wipes 4 times per day. 400 each 3 05/31/19 Active lancets miscIndications:T ype 2 diabetes mellitus with hyperglycemia, with long-term current use of insulin ([facility]) Use to check blood sugar 3 times daily 300 each 3 06/30/19 Active True Metrix Glucose Test Strip stripIndications: Type 2 diabetes mellitus with hyperglycemia, with long-term current use of insulin ([facility]),Uncontrolle d type 2 diabetes mellitus with hyperglycemia ([facility]) USE FOR TESTING THREE TIMES [...] with long-term current use of insulin ([facility]),Uncontrolle d type 2 diabetes mellitus with hyperglycemia (HCC) Take 1 tablet (10 mg total) by mouth daily 90 tablet 3 05/14/19 25 Active tirzepatide (Mounjaro) 10 mg/0.5 mL pen injector injectionIndicati ons:Type 2 diabetes mellitus with hyperglycemia, with long-term current use of insulin ([facility]) INJECT 0.5ML UNDER THE SKIN EVERY 7 DAYS. 6 mL 3 07/01/19 25 Active metFORMIN XR (GLUCOPHAGE XR) 500 mg 24 hr tabletIndications :Type 2 diabetes mellitus with hyperglycemia, with long-term current use of insulin ([facility]),Uncontrolle d type 2 diabetes mellitus with hyperglycemia ([facility]) TAKE 2 TABLETS (1000MG TOTAL) TWO TIMES A DAY 360 tablet 3 07/01/19 25 Active pen needle, diabetic 32 gauge x 5/32 needleIndications :Type 2 diabetes mellitus with hyperglycemia, with long-term current use of insulin ([facility]) Use for 4 shots daily 400 each 3 07/01/19 25 Active rOPINIRole (REQUIP) 1 mg tabletIndications :PLMD (periodic limb movement disorder) Take 1 tablet (1 mg total) by mouth nightly 90 tablet 3 07/02/19 25 Active insulin aspart (NovoLOG) 100 unit/mL (3 mL) pen for injectionIndicati ons:Type 2 diabetes mellitus with hyperglycemia, with long-term current use of insulin ([facility]),Uncontrolle d type 2 diabetes mellitus with hyperglycemia (HCC) Inject 8 units under the skin with meals, 2 units with high starches or snacks, plus 1 unit for every 25 points >150. Max TDD 45 units daily 08/13/19 25 Active insulin glargine 100 unit/mL (3 mL) pen for injectionIndicati ons:Type 2 diabetes mellitus with hyperglycemia, with long-term current use of insulin ([facility]) Inject 60 units under the skin nightly 08/13/19 25 Active multivitamin tablet With 400 international units vitamin D Daily Active Active Problems Problem Noted Date Diagnosed Date Diabetic peripheral neuropathy 01/11/2022 Assessment & Plan (08/16/2024 7:20 PM CDT): Clinically much improved. Unable to tolerate gabapentin and no longer needs alpha lipoic acid. Assessment & Plan (05/27/2024 3:55 PM TON CYLINDER INSPECTOR): - Currently receives steroid injections in his [...] booster Assessment & Plan (05/25/2021 2:52 PM TON CYLINDER INSPECTOR): Pfizer vaccine x3; booster dose mid-February 2021. He will send me precise dates so we can record accurately. Ulnar nerve compression, left 08/03/2020 Carpal tunnel syndrome, bilateral upper limbs Hair loss 07/12/2020 Overview (07/12/2020): ? Related to chemotherapy PLMD (periodic limb movement disorder) Assessment & Plan (07/02/2024 2:16 PM TON CYLINDER INSPECTOR): The patient continues Requip 1 mg nightly Assessment & Plan (06/27/2023 1:37 PM TON CYLINDER INSPECTOR): Patient continue with Requip 1 mg p.o. Q bedtime. The patient states that this is controlling his limbs well. I have sent in prescription in for 90 day supply with three refills to [facility]. Assessment & Plan (06/28/2022 2:22 PM TON CYLINDER INSPECTOR): Patient continue with Requip 1 mg p.o. Q bedtime. Assessment & Plan (06/29/2021 1:44 PM TON CYLINDER INSPECTOR): I will increase the patient's Requip to 1 mg. The patient was advised that he can take two of the 0.5 tablets until they completed. Assessment & Plan (05/19/2020 10:49 AM TON CYLINDER INSPECTOR): The patient continues to benefit from Requip 0.5 mg at bedtime. He was requesting a refill. Erythrocytosis 07/12/2018 Leukocytosis 07/12/2018 History of colon polyps 06/10/2018 Overview (06/10/2018): Added automatically from request for surgery [id number] Family history of colon cancer 06/10/2018 Overview (06/10/2018): Added automatically from request for surgery [id number] Allergic rhinitis 01/24/2018 Primary osteoarthritis of left [...] control Assessment & Plan (05/27/2024 3:57 PM TON CYLINDER INSPECTOR): - Last LDL 95 (01/2024), above goal [...] control Assessment & Plan (05/25/2021 2:51 PM TON CYLINDER INSPECTOR): Continue statin, optimize glycemic control Assessment & Plan (11/15/2020 10:18 AM CDT): Continue statin, optimize glycemic control Assessment & Plan (06/04/2020 3:30 PM TON CYLINDER INSPECTOR): Continue statin, optimize glycemic control Assessment & [...] Value Date HGBA1C 6.2 (A) 11/18/2024 Per [place] [employer], goal A1c is less 7% [...] PCP. Assessment & Plan (05/27/2024 3:54 PM TON CYLINDER INSPECTOR): - Diabetes is complicated by neuropathy, hypertension, hyperlipidemia and obesity. Controlled. Lab Results Component Value Date HGBA1C 6.1 05/27/2024 Per [place] [employer], goal A1c is less 7% [...] that I am available via phone or [employer] if they have any concerns for hypo/hyperglycemia, medication refills, etc. Assessment & Plan (02/02/2024 3:00 PM CDT): Glucoses overall within a good range of control and safety. Assessment & Plan (10/24/2023 2:14 PM CDT): - Diabetes is complicated by neuropathy, HTN, HLD and obesity. Controlled. Lab Results Component Value Date HGBA1C 6.2 10/24/2023 Per [place] [employer], goal A1c is less 7% [...] labs are due. Dr. Oliveira sent to [email or web address] in July. Encouraged patient to complete them [...] safety. Assessment & Plan (05/25/2021 2:50 PM TON CYLINDER INSPECTOR): Suboptimal control, but tends to snack. Will [...] safety Assessment & Plan (06/04/2020 3:29 PM TON CYLINDER INSPECTOR): Glucoses a little higher than target, but [...] osteoarthritis. Assessment & Plan (05/27/2024 3:57 PM TON CYLINDER INSPECTOR): - Continue Mounjaro 10 mg weekly. Consider [...] management Assessment & Plan (05/27/2024 3:56 PM TON CYLINDER INSPECTOR): - At goal today - Continue current [...] hypoglycemia. Assessment & Plan (06/04/2020 3:30 PM TON CYLINDER INSPECTOR): Need to minimize risk of hypoglycemia Depression 05/07/2002 Overview (08/11/2016): DEPRESSIVE DISORDER NEC Obstructive sleep apnea syndrome 05/07/2002 Overview (08/11/2016): OBSTRUCTIVE SLEEP APNEA Assessment & Plan (07/02/2024 2:16 PM TON CYLINDER INSPECTOR): The patient will continue CPAP at 16 cm water pressure. Denied need for supplies. DME adapt Assessment & Plan (06/27/2023 1:37 PM TON CYLINDER INSPECTOR): The patient continues to wear his CPAP at 16 cm water pressure while sleeping. His DME is [facility] Assessment & Plan (06/28/2022 2:21 PM TON CYLINDER INSPECTOR): I will increase the patient's CPAP 16 cm water pressure while sleeping due to the snoring. His DME is [facility] Assessment & Plan (06/29/2021 1:43 PM TON CYLINDER INSPECTOR): I will increase the patient's CPAP 16 cm water pressure while sleeping. His DME is [facility]. Assessment & Plan (05/19/2020 10:49 AM TON CYLINDER INSPECTOR): The patient continues to benefit from CPAP at 14 cm water pressure. His DME is [facility]. Anxiety state 05/07/2002 Overview (08/11/2016): ANXIETY STATE NOS Resolved Problems Problem Noted Date Diagnosed Date Resolved Date Need for immunization against influenza 02/15/2017 01/24/2018 Encounters Date Type Department Care Team Description 11/18/2024 3:00 PM CDT Office Visit [facility] Medicine Endocrinology Metabolism and Lipid [address] [facility] [address] [place] [address] [place] [address] Juliana Moreno PA Type 2 diabetes mellitus [...] with bursa removal (Added by TW Conv) SD ARTHRD ANT INTERBODY MIN DSC CRV BELOW C2 Cervical Vertebral Fusion - (Added by TW Conv) SD NEUROPLASTY &/TRANSPOS MEDIAN NRV CARPAL TUNNE Neuroplasty [...] on file Legal Sex Male 11:53 PM TON CYLINDER INSPECTOR Gender Identity Male 05/12/2020 11:21 AM TON CYLINDER INSPECTOR Sexual Orientation Straight 05/12/2020 11 :21 AM TON CYLINDER INSPECTOR Obstetrics History Last Filed Vital Signs Vital Sign Reading Time Taken Comments Blood Pressure 111/72 11/18/2024 2:51 PM CDT Pulse 83 11/18/2024 2:51 PM CDT Temperature 36.9 C (98.4 F) 11/18/2024 2:51 PM CDT Respiratory Rate 18 07/02/2024 1:45 PM TON CYLINDER INSPECTOR Oxygen Saturation 97% 07/02/2024 1:45 PM TON CYLINDER INSPECTOR Inhaled Oxygen Concentration - - Weight 98.9 [...] current use of insulin (HCC) POCT GLUCOSE 38922 Routine 11/18/2024 2: 53 PM CDT Type 2 diabetes mellitus with hyperglycemia, with long-term current use of insulin (HCC) DIABETIC EYE EXAM Routine 09/08/2021 ALBUMIN CREATININE RATIO, URINE Routine 03/21/2019 8:45 AM TON CYLINDER INSPECTOR COLONOSCOPY 06/26/2018 8:12 AM TON CYLINDER INSPECTOR from Last 3 Months or Most Recently [...] Albumin Creatinine Ratio, Urine (03/21/2019 8:45 AM TON CYLINDER INSPECTOR) Creatinine, ur 98 20 - 320 mg/dL [email or web address] [place] Microalbumin, ur 0.5 See Note: mg/dL [facility] [place] Comment: Reference Range: Reference Range Not established Microalbumin/creat ratio 5 <30 mcg/mg creat [facility] [place] Comment: The ADA defines abnormalities in albumin excretion as follows: Category Result (mcg/mg creatinine) Normal <30 Microalbuminuria 30-299 Clinical albuminuria > OR = 300 The ADA recommends that at least two of three specimens collected within a 3-6 month period be abnormal before considering a patient to be within a diagnostic category. 03/21/2019 8:45 AM TON CYLINDER INSPECTOR 03/21/2019 8:46 AM TON CYLINDER INSPECTOR Narrative Resulting Agency Comment Performing Organization Information: Site ID: [place] Name: [facility] Address: [address] [address] Director: Aram Turpin D.O., MPH us Lianne Olievira MD LAB URINE ORDERABLES Final Result [facility] [email or web address] [facility] [place] * COLONOSCOPY (06/26/2018 8:12 AM TON CYLINDER INSPECTOR) Anatomical Region Laterality Modality Other Narrative Procedure Note Brynn Perez MD - 06/26/2018 8:12 AM CST [facility] Patient Name: Bowen Quintanilla Procedure Date: 06/26/2018 8:12 AM Date of : 1955 Admit Type: Outpatient Age: 63 Gender: Male Attending MD: Brynn Perez M.D. Room: [facility] ENDOSCOPY ROOM 1 Note Status: Finalized [...] passed under direct vision.The Pediatric Colonoscope PCF-H190L [id number] was introduced through the anus and advanced [...] organs K64.8, Other hemorrhoids CPT copyright 2017 [place] [employer]. All rights reserved. The codes documented in this report are preliminary and upon instructor physical reviewmay be revised to meet current compliance requirements. Recognized by the [place] [employer] for promoting quality in endoscopy Brynn Perez MD ENDOSCOPY PROCEDURES Final Result from Last 3 Months or Most Recently Relevant to Health Maintenance Insurance MEDICARE [employer] MEDICARE A[employer] SENIOR SUPPLEMENT MEDICARE AETNA SENIOR SUPPLEMENT Advance Directives For more information, please contact: [phone] * Full Code (Latest Code Status on File) Date Activated Date Inactivated Comments 06/26/2018 7:23 AM 06/26/2018 2:17 PM * Full Code Date Activated Date Inactivated Comments 06/26/2018 7:23 AM 06/26/2018 7:23 AM Care Teams Whizzer Hand Relationship Specialty Start Date End Date Flavio Little MD PCP - General 08/09/07 Lianne Oliveira MD Referring Physician Endocrinology Diabetes & Metabolism 09/09/19 Ryann May NP Nurse Practitioner Nurse Practitioner 06/04/20 Maite Diamond MD [address] [place] [address] Medical Oncologist/Hematologis t Hematology 07/06/20 Lobito Burton MD PhD [address] [place] [address] Referring Physician Cardiology 08/24/20 Dimas Valle MD [address] [address] Consulting Physician Pulmonary Disease 08/24/21 [place] [id number] [id number] Referring Physician Physical Medicine and Rehabilitation 07/24/23 Juliana Moreno PA [address] [facility] ENDOCRINOLOGY, [address] [address] Physician Loans Consultant Physician Loans Consultant 08/11/24
--- NOTE | 2024-12-26 17:48 | P.PCNPFT_ITS ---
PFT Procedure Performed PFT Procedure Performed Plethysmography (Lung Vol) Diffusing Cap (DLCO) Flow Vol Loop Spirometry w/o Bronchodil PFT Interpretation This is a pulmonary function test with spirometry, plethysmography and diffusing capacity. The test was performed and results interpreted in accordance with the 2019 and 2005 ATS/ERS Task Force guidelines respectively using the Global Lung Function Initiative-2012 reference equations. Patient demonstrated good effort and cooperation. Reproducibility criteria were met. The quality of the spirometry maneuver was Grade A. Findings: Spirometry: The contour the expiratory flow tracing is notched in 2 of 3 maneuvers. The contour the inspiratory flow tracing is normal. The FVC is 4.16 L, 103% predicted. The FEV1 is 3.11 L, 101% predicted. The FEV1: FVC ratio 75%. Plethysmography: The total lung capacity 7.25 L, 106% predicted. The fun ctional residual capacity is 4.04 L, 112% predicted. The residual volume is 3.08 L, 128% predicted. Diffusing capacity: The diffusing capacity unadjusted for hemoglobin and carboxyhemoglobin is 25.0, 98% predicted. Diffusing capacity adjusted for alveolar volume is 3.77, 95% predicted. Impression: The notched pattern has been described with coughing or tracheobronchomalacia. Otherwise, the spirometry is normal without evidence of an obstructive abnormality. The lung volumes are normal. The diffusing capacity is normal. There are no prior studies for comparison
== END 2024-12-26 13:10 | disposition home or self-care (01) ==
LOC: ANHPFT 13:09
PROVIDERS: PCP Internal Medicine; Visit Provider Internal Medicine
DX: R06.09 Other forms of dyspnea (principal); R05.9 Cough, unspecified; R07.89 Other chest pain
CPT/HCPCS: 94375; 94726; 94729

== ENCOUNTER 2025-01-13 14:39 | Outpatient (CLI) | payer MEDICARE, SELFPAY ==
[2025-01-13 15:13] LABS: Hematocrit 51.4 % (37.0-46.0); Hemoglobin 16.2 g/dL (12.4-15.3); Immature Granulocyte Percent A 0.8 % (0.0-0.0); Lymphocytes Absolute Auto 2.12 K/mm3 (1.10-4.50); Mean Corpuscular HGB Conc 31.5 g/dL (32-36); Mean Corpuscular Hemoglobin 28.0 pg (27.0-31.0); Mean Corpuscular Volume 88.9 fL (78.0-102.0); Nucleated Red Blood Cells Absolute Auto 0.00 K/mm3 (0.00-0.00); Nucleated Red Blood Cells Perc 0.0 % (0-0.0); Platelet Count Result 259 K/mm3 (150-420); Red Blood Count 5.78 M/mm3 (4.70-6.10); White Blood Count 10.6 K/mm3 (4.8-10.8)
--- OUTSIDE RECORDS SUMMARY | 2025-01-13 16:14 | XMS_ITS | Clinical Summary ---
Author Organization [facility] Address [address] [place] [address] Care Team Providers Care Top Tile Decorator Name Role Phone Flavio Little MD Primary Care Provider [phone] Lianne Oliveira MD Unavailable [phone] Ryann May NP Unavailable [phone] Maite Diamond MD Unavailable [phone] Lobito Burton MD PhD Unavailable [phone] Dimas Valle MD Unavailable [phone] Tucker Bai MD [facility]available [facility] [phone] Allergies Active Allergy Reactions Criticality Noted Date [...] with long-term current use of insulin ([facility]) Use to check blood sugar 4 times daily 1 each 1 05/24/19 Active alcohol swabs (Alcohol Wipes) pads, medicatedIndicati ons:Type 2 diabetes mellitus with hyperglycemia, with long-term current use of insulin ([facility]) Use alcohol wipes 4 times per day. 400 each 3 05/31/19 Active lancets miscIndications:T ype 2 diabetes mellitus with hyperglycemia, with long-term current use of insulin ([facility]) Use to check blood sugar 3 times daily 300 each 3 06/30/19 Active True Metrix Glucose Test Strip stripIndications: Type 2 diabetes mellitus with hyperglycemia, with long-term current use of insulin ([facility]),Uncontrolle d type 2 diabetes mellitus with hyperglycemia ([facility]) USE FOR TESTING THREE TIMES DAILY DIRECTED [...] with long-term current use of insulin ([facility]),Uncontrolle d type 2 diabetes mellitus with hyperglycemia (HCC) Take 1 tablet (10 mg total) by mouth daily 90 tablet 3 05/14/19 25 Active tirzepatide (Mounjaro) 10 mg/0.5 mL pen injector injectionIndicati ons:Type 2 diabetes mellitus with hyperglycemia, with long-term current use of insulin ([facility]) INJECT 0.5ML UNDER THE SKIN EVERY 7 DAYS. 6 mL 3 07/01/19 25 Active metFORMIN XR (GLUCOPHAGE XR) 500 mg 24 hr tabletIndications :Type 2 diabetes mellitus with hyperglycemia, with long-term current use of insulin ([facility]),Uncontrolle d type 2 diabetes mellitus with hyperglycemia ([facility]) TAKE 2 TABLETS (1000MG TOTAL) TWO TIMES A DAY 360 tablet 3 07/01/19 25 Active pen needle, diabetic 32 gauge x 5/32 needleIndications :Type 2 diabetes mellitus with hyperglycemia, with long-term current use of insulin ([facility]) Use for 4 shots daily 400 each 3 07/01/19 25 Active rOPINIRole (REQUIP) 1 mg tabletIndications :PLMD (periodic limb movement disorder) Take 1 tablet (1 mg total) by mouth nightly 90 tablet 3 07/02/19 25 Active insulin aspart (NovoLOG) 100 unit/mL (3 mL) pen for injectionIndicati ons:Type 2 diabetes mellitus with hyperglycemia, with long-term current use of insulin ([facility]),Uncontrolle d type 2 diabetes mellitus with hyperglycemia (HCC) Inject 8 units under the skin with meals, 2 units with high starches or snacks, plus 1 unit for every 25 points >150. Max TDD 45 units daily 08/13/19 25 Active insulin glargine 100 unit/mL (3 mL) pen for injectionIndicati ons:Type 2 diabetes mellitus with hyperglycemia, with long-term current use of insulin ([facility]) Inject 60 units under the skin nightly 08/13/19 25 Active multivitamin tablet With 400 international units vitamin D Daily Active Active Problems Problem Noted Date Diagnosed Date Diabetic peripheral neuropathy 01/11/2022 Assessment & Plan (08/16/2024 7:20 PM CDT): Clinically much improved. Unable to tolerate gabapentin and no longer needs alpha lipoic acid. Assessment & Plan (05/27/2024 3:55 PM SODA TESTER): - Currently receives steroid injections in his [...] booster Assessment & Plan (05/25/2021 2:52 PM SODA TESTER): Pfizer vaccine x3; booster dose mid-February 2021. He will send me precise dates so we can record accurately. Ulnar nerve compression, left 08/03/2020 Carpal tunnel syndrome, bilateral upper limbs Hair loss 07/12/2020 Overview (07/12/2020): ? Related to chemotherapy PLMD (periodic limb movement disorder) Assessment & Plan (07/02/2024 2:16 PM SODA TESTER): The patient continues Requip 1 mg nightly Assessment & Plan (06/27/2023 1:37 PM SODA TESTER): Patient continue with Requip 1 mg p.o. Q bedtime. The patient states that this is controlling his limbs well. I have sent in prescription in for 90 day supply with three refills to [facility]. Assessment & Plan (06/28/2022 2:22 PM SODA TESTER): Patient continue with Requip 1 mg p.o. Q bedtime. Assessment & Plan (06/29/2021 1:44 PM SODA TESTER): I will increase the patient's Requip to 1 mg. The patient was advised that he can take two of the 0.5 tablets until they completed. Assessment & Plan (05/19/2020 10:49 AM SODA TESTER): The patient continues to benefit from Requip 0.5 mg at bedtime. He was requesting a refill. Erythrocytosis 07/12/2018 Leukocytosis 07/12/2018 History of colon polyps 06/10/2018 Overview (06/10/2018): Added automatically from request for surgery [id number] Family history of colon cancer 06/10/2018 Overview (06/10/2018): Added automatically from request for surgery [id number] Allergic rhinitis 01/24/2018 Primary osteoarthritis of left [...] control Assessment & Plan (05/27/2024 3:57 PM SODA TESTER): - Last LDL 95 (01/2024), above goal [...] control Assessment & Plan (05/25/2021 2:51 PM SODA TESTER): Continue statin, optimize glycemic control Assessment & Plan (11/15/2020 10:18 AM CDT): Continue statin, optimize glycemic control Assessment & Plan (06/04/2020 3:30 PM SODA TESTER): Continue statin, optimize glycemic control Assessment & [...] Value Date HGBA1C 6.2 (A) 11/18/2024 Per [employer], goal A1c is less 7% [...] PCP. Assessment & Plan (05/27/2024 3:54 PM SODA TESTER): - Diabetes is complicated by neuropathy, hypertension, hyperlipidemia and obesity. Controlled. Lab Results Component Value Date HGBA1C 6.1 05/27/2024 Per [employer], goal A1c is less 7% [...] that I am available via phone or [employer] if they have any concerns for hypo/hyperglycemia, medication refills, etc. Assessment & Plan (02/02/2024 3:00 PM CDT): Glucoses overall within a good range of control and safety. Assessment & Plan (10/24/2023 2:14 PM CDT): - Diabetes is complicated by neuropathy, HTN, HLD and obesity. Controlled. Lab Results Component Value Date HGBA1C 6.2 10/24/2023 Per [employer], goal A1c is less 7% [...] labs are due. Dr. Oliveira sent to [facility] in July. Encouraged patient to complete them [...] safety. Assessment & Plan (05/25/2021 2:50 PM SODA TESTER): Suboptimal control, but tends to snack. Will [...] safety Assessment & Plan (06/04/2020 3:29 PM SODA TESTER): Glucoses a little higher than target, but [...] osteoarthritis. Assessment & Plan (05/27/2024 3:57 PM SODA TESTER): - Continue Mounjaro 10 mg weekly. Consider [...] management Assessment & Plan (05/27/2024 3:56 PM SODA TESTER): - At goal today - Continue current [...] hypoglycemia. Assessment & Plan (06/04/2020 3:30 PM SODA TESTER): Need to minimize risk of hypoglycemia Depression 05/07/2002 Overview (08/11/2016): DEPRESSIVE DISORDER NEC Obstructive sleep apnea syndrome 05/07/2002 Overview (08/11/2016): OBSTRUCTIVE SLEEP APNEA Assessment & Plan (07/02/2024 2:16 PM SODA TESTER): The patient will continue CPAP at 16 cm water pressure. Denied need for supplies. DME adapt Assessment & Plan (06/27/2023 1:37 PM SODA TESTER): The patient continues to wear his CPAP at 16 cm water pressure while sleeping. His DME is [facility] Assessment & Plan (06/28/2022 2:21 PM SODA TESTER): I will increase the patient's CPAP 16 cm water pressure while sleeping due to the snoring. His DME is [facility] Assessment & Plan (06/29/2021 1:43 PM SODA TESTER): I will increase the patient's CPAP 16 cm water pressure while sleeping. His DME is [facility]. Assessment & Plan (05/19/2020 10:49 AM SODA TESTER): The patient continues to benefit from CPAP at 14 cm water pressure. His DME is [facility]. Anxiety state 05/07/2002 Overview (08/11/2016): ANXIETY STATE NOS Resolved Problems Problem Noted Date Diagnosed Date Resolved Date Need for immunization against influenza 02/15/2017 01/24/2018 Encounters Date Type Department Care Team Description 11/18/2024 3:00 PM CDT Office Visit [facility] Medicine Endocrinology Metabolism and Lipid [address] [facility] [facility] [address] [place] [address] [place] [id number] Juliana Donahue PA Type 2 diabetes mellitus with hyperglycemia, [...] with bursa removal (Added by TW Conv) AR ARTHRD ANT INTERBODY MIN DSC CRV BELOW C2 Cervical Vertebral Fusion - (Added by TW Conv) AR NEUROPLASTY &/TRANSPOS MEDIAN NRV CARPAL TUNNE Neuroplasty [...] on file Legal Sex Male 11:53 PM SODA TESTER Gender Identity Male 05/12/2020 11:21 AM SODA TESTER Sexual Orientation Straight 05/12/2020 11 :21 AM SODA TESTER Obstetrics History Last Filed Vital Signs Vital Sign Reading Time Taken Comments Blood Pressure 111/72 11/18/2024 2:51 PM CDT Pulse 83 11/18/2024 2:51 PM CDT Temperature 36.9 C (98.4 F) 11/18/2024 2:51 PM CDT Respiratory Rate 18 07/02/2024 1:45 PM SODA TESTER Oxygen Saturation 97% 07/02/2024 1:45 PM SODA TESTER Inhaled Oxygen Concentration - - Weight 98.9 [...] current use of insulin (HCC) POCT GLUCOSE 14255 Routine 11/18/2024 2: 53 PM CDT Type 2 diabetes mellitus with hyperglycemia, with long-term current use of insulin (HCC) DIABETIC EYE EXAM Routine 09/08/2021 ALBUMIN CREATININE RATIO, URINE Routine 03/21/2019 8:45 AM SODA TESTER COLONOSCOPY 06/26/2018 8:12 AM SODA TESTER from Last 3 Months or Most Recently Relevant to Health Maintenance Results * (ABNORMAL) POCT hemoglobin A1c (11/18/2024 2:55 PM CDT) Hemoglobin A1C, POC 6.2(A) 4.0 - 5.6 % Blood 11/18/2024 2:55 PM CDT Juliana LOAIZA POINT OF CARE TEST ORDERABLES Final Result * POCT glucose (11/18/2024 2:53 PM CDT) Glucose Blood, POC 120 Normal Fasting 70 - 100, Random <200 mg/dL Blood 11/18/2024 2:53 PM CDT us Juliana Moreno [facility] POINT OF CARE TEST ORDERABLES Final Result * Diabetic Eye Exam (09/08/2021) us Quinn Christian OD HEALTH MAINTENANCE Final R esult * Albumin Creatinine Ratio, Urine (03/21/2019 8:45 AM SODA TESTER) Creatinine, ur 98 20 - 320 mg/dL [facility] [place] Microalbumin, ur 0.5 See Note: mg/dL [facility] [place] Comment: Reference Range: Reference Range Not established Microalbumin/creat ratio 5 <30 mcg/mg creat [facility] [place] Comment: The ADA defines abnormalities in albumin excretion as follows: Category Result (mcg/mg creatinine) Normal <30 Microalbuminuria 30-299 Clinical albuminuria > OR = 300 The ADA recommends that at least two of three specimens collected within a 3-6 month period be abnormal before considering a patient to be within a diagnostic category. 03/21/2019 8:45 AM SODA TESTER 03/21/2019 8:46 AM SODA TESTER Narrative Resulting Agency Comment Performing Organization Information: Site ID: [id number] Name: [facility] Address: [address] [place] [address] Director: Aram Turpin D.O., MPH us Lianne Oliveira MD LAB URINE ORDERABLES Final Result [facility] [employer] [facility] [place], [place] * COLONOSCOPY (06/26/2018 8:12 AM SODA TESTER) Anatomical Region Laterality Modality Other Narrative Procedure Note Brynn Perez MD - 06/26/2018 8:12 AM CST [facility] Patient Name: Bowen Quintanilla Procedure Date: 06/26/2018 8:12 AM Date of : 1955 Admit Type: Outpatient Age: 63 Gender: Male Attending MD: Brynn Perez M.D. Room: [facility] ENDOSCOPY ROOM 1 Note Status: Finalized Patient [...] passed under direct vision.The Pediatric Colonoscope PCF-H190L [id number] was introduced through the anus and advanced [...] organs K64.8, Other hemorrhoids CPT copyright 2017 [employer]. All rights reserved. The codes documented in this report are preliminary and upon weigh box tender reviewmay be revised to meet current compliance requirements. Recognized by the [employer] for promoting quality in endoscopy Brnyn Perez MD ENDOSCOPY PROCEDURES Final Result from Last 3 Months or Most Recently Relevant to Health Maintenance Insurance MEDICARE [employer] MEDICARE A[employer] SENIOR SUPPLEMENT MEDICARE AETNA SENIOR SUPPLEMENT Advance Directives For more information, please contact: [phone] * Full Code (Latest Code Status on File) Date Activated Date Inactivated Comments 06/26/2018 7:23 AM 06/26/2018 2:17 PM * Full Code Date Activated Date Inactivated Comments 06/26/2018 7:23 AM 06/26/2018 7:23 AM Care Teams Top Tile Decorator Relationship Specialty Start Date End Date Flavio Little MD PCP - General 08/09/07 Lianne Oliveira MD Referring Physician Endocrinology Diabetes & Metabolism 09/09/19 Ryann May NP Nurse Practitioner Nurse Practitioner 06/04/20 Maite Diamond MD [address] [place] [address] Medical Oncologist/Hematologis t Hematology 07/06/20 Lobito Burton MD PhD [address] [place], [place] [id number] Referring Physician Cardiology 08/24/20 Dimas Valle MD [address] [address] Consulting Physician Pulmonary Disease 08/24/21 [place] [address] [address] Referring Physician Physical Medicine and Rehabilitation 07/24/23 [place] [address] [place] [address] DIV IM ENDOCRINOLOGY, [address] [address] Physician Cat Tender Physician Cat Tender 08/11/24
--- OUTSIDE RECORDS SUMMARY | 2025-01-13 16:14 | XMS_ITS | Clinical Summary ---
Author Organization [facility] Address [address] [place] [address] Care Team Providers Care Port Surveyor Name Role Phone Flavio Little MD Primary Care Provider [phone] Medications No known medications Active Problems Problem Noted Date Diagnosed Date Carpal tunnel syndrome, bilateral upper limbs Ulnar nerve compression, left 08/03/2020 Encounters Date Type Department Care Team Description 12/26/2024 Transcribe Orders [facility] Pre Access Team [address] [place] [address] Flavio Little MD 12/25/[address] [facility] [address] [place] [address] Flavio Little MD 12/11/2024 2:07 PM CDT - 12/11/2024 11:59 PM CDT Hospital Encounter [facility] [address] [place] [address] Flavio Little MD Discharge Disposition: Home or [...] 2:31 PM Narrative 12/11/2024 2:32 PM CDT [address] [place] [address] EXAMINATION: XR CHEST PA+LAT, 12/11/2024 2:31 PM [...] Procedure Note Juan Saini MD - 12/11/[address] [place] [address] EXAMINATION: XR CHEST PA+LAT, 12/11/2024 2:31 PM [...] 3 Months Insurance MEDICARE AETNA Care Teams Port Surveyor Relationship Specialty Start Date End Date Flavio Little MD [address] [place] [address] PCP - General INTERNAL MEDICINE 07/30/20
--- OUTSIDE RECORDS SUMMARY | 2025-01-13 16:14 | XMS_ITS | Encounter Summary ---
Author Organization [facility] Address [address] [place] [address] Phone Care Team Providers Care Cell Biologist Name Role Phone Flavio Little MD Primary Care Provider [phone] Lianne Oliveira MD Unavailable [phone] Ryann May NP Unavailable [phone] Maite Diamond MD Unavailable [phone] Lobito Burton MD PhD Unavailable [phone] iDmas Valle MD Unavailable [phone] Tcuker Bai MD Unavailable [facility] Unavailable [phone] Encounter Details Date Type Department Care Team [...] on file Legal Sex Male 11:53 PM EXHAUST AND MUFFLER FITTER Gender Identity Male 05/12/2020 11:21 AM EXHAUST AND MUFFLER FITTER Sexual Orientation Straight 05/12/2020 11 :21 AM EXHAUST AND MUFFLER FITTER documented as of this encounter Plan of Treatment Not on file documented as of this encounter Procedures Procedure Name Priority Date/Time Associated Diagnosis Comments SCAN - LABS 08/03/2017 documented in this encounter Results * SCAN - LABS (08/03/2017) us Provider Scanning Final Result documented in this encounter Visit Diagnoses Not on filedocumented in this encounter Care Teams Cell Biologist Relationship Specialty Start Date End Date Flavio Little MD PCP - General 08/09/07 Lianne Oliveira MD Referring Physician Endocrinology Diabetes & Metabolism 09/09/19 Ryann May NP Nurse Practitioner Nurse Practitioner 06/04/20 Maite Diamond MD [address] [place] [address] Medical Oncologist/Hematologis t Hematology 07/06/20 Lobito Burton MD PhD [address] [place] [address] Referring Physician Cardiology 08/24/20 Dimas Valle MD [address] [address] Consulting Physician Pulmonary Disease 08/24/21 [place] [address] [id number] Referring Physician Physical Medicine and Rehabilitation 07/24/23 Juliana Donahue PA [address] [facility] ENDOCR[facility], [address] [address] Physician Chief Inspector Physician Chief Inspector 08/11/24 documented as of this encounter
--- OUTSIDE RECORDS SUMMARY | 2025-01-13 16:14 | XMS_ITS | Encounter Summary ---
Author Organization [facility] Address [address] [place] [address] Care Team Providers Care Printed Circuit Board Pcb Draftsman Name Role Phone Flavio Little MD Primary Care Provider [phone] Encounter Details Date Type Department Care Team (Late st Contact Info) Description 12/26/2024 Transcribe Orders [facility] [address] Pre Access Team [address] [place] [address] Flavio Little MD [address] [place] [address] Social History Tobacco Use Types [...] on filedocumented in this encounter Care Teams Printed Circuit Board Pcb Draftsman Relationship Specialty Start Date End Date Flavio Little MD [address] [place] [address] PCP - General INTERNAL MEDICINE 07/30/20 documented as of this encounter
== END 2025-01-13 14:40 | disposition home or self-care (01) ==
PROVIDERS: PCP Internal Medicine; Visit Provider Internal Medicine
DX: D72.820 Lymphocytosis (symptomatic) (principal)
CPT/HCPCS: 36415; 85025